=== PATIENT | male | born 1955 | race Caucasian/White ===

== ENCOUNTER 2019-12-06 08:22 | Outpatient (CLI) | payer BC, SELFPAY ==
--- NOTE | 2019-12-06 08:43 | ECG_ITS ---
Measurements Intervals [place] Rate: 55 P: 64 TX: 199 QRS: 49 QRSD: 89 T: 61 QT: 452 QTc: 434 Interpretive Statements SINUS BRADYCARDIA VOLTAGE CRITERIA FOR LVH BORDERLINE ECG Electronically Signed On 12-06-2019 12:41:24 EXTENSION SERVICE SPECIALIST IN CHARGE by Jose Daniel Gold D.O.
== END 2019-12-06 08:23 | disposition home or self-care (01) ==
LOC: ANHCARD 08:24
PROVIDERS: PCP Internal Medicine; Visit Provider Internal Medicine
DX: I10 Essential (primary) hypertension (principal); R94.31 Abnormal electrocardiogram [ECG] [EKG]
CPT/HCPCS: 93005

== ENCOUNTER 2019-12-27 07:34 | Outpatient (CLI) | payer BC, SELFPAY ==
--- NOTE | ~2019-12-27 | MR_ITS ---
EXAMINATION: MR cervical spine wo con DATE: 12/27/2019 08:40 INDICATION: Cervical radiculopathy. TECHNIQUE: Magnetic resonance imaging (MRI) of the cervical spine was performed without intravenous c ontrast. Sequences included sagittal T2-weighted FSE, sagittal STIR FSE, sagittal T1-weighted FSE, ax ial MERGE, and axial T2-weighted FSE. COMPARISON: None FINDINGS: There is hypolordosis of cervical spine. There is 2 mm retrolisthesis of C4 on C5. Vertebra l body heights are normal. There is mildly decreased disc height at C3-C4, severely decreased disc he ight at C4-C5, and mildly decreased disc height at C5-C6 and C6-C7. There are 3 lesions of increased T2-weighted signal intensity in the spinal cord: at C2-C3 on the left, at C3-C4 on the right, and C6 on the right. The following disc levels are specifically discussed: C2-C3: The disc does not extend beyond the endplate margin. There is no uncovertebral joint osteoarth ritis. There is mild right facet joint osteoarthritis. There is no neural foraminal stenosis. There i s no central canal stenosis. C3-C4: The disc is bulging. There is moderate bilateral uncovertebral joint osteoarthritis. There is severe bilateral facet joint osteoarthritis. There is moderate bilateral neural foraminal stenosis. T here is mild central canal stenosis. C4-C5: The disc is bulging. There is severe bilateral uncovertebral joint osteoarthritis. There is mo derate bilateral facet joint osteoarthritis. There is moderate bilateral neural foraminal stenosis. T here is mild central canal stenosis. C5-C6: The disc is bulging. There is severe right and moderate left uncovertebral joint osteoarthriti s. There is severe right and mild left facet joint osteoarthritis. There is severe right and mild lef t neural foraminal stenosis. There is mild central canal stenosis. C6-C7: The disc is bulging. There is severe bilateral uncovertebral joint osteoarthritis. There is mi ld bilateral facet joint osteoarthritis. There is moderate bilateral neural foraminal stenosis. There is mild central canal stenosis. C7-T1: There is a central extrusion. There is no uncovertebral joint osteoarthritis. There is severe right and mild left facet joint osteoarthritis. There is mild bilateral neural foraminal stenosis. Th ere is mild central canal stenosis. IMPRESSION: 1. 3 lesions in the spinal cord, most likely multiple sclerosis. 2. Severe cervical spondylosis. Reviewed, dictated and finalized at location A.
== END 2019-12-27 07:35 | disposition home or self-care (01) ==
PROVIDERS: PCP Internal Medicine; Visit Provider Psychiatry & Neurology Neurology
DX: M54.12 Radiculopathy, cervical region (principal); R20.0 Anesthesia of skin; R20.2 Paresthesia of skin; R29.898 Other symptoms and signs involving the musculoskeletal system; G95.9 Disease of spinal cord, unspecified; M47.812 Spondylosis without myelopathy or radiculopathy, cervical region
CPT/HCPCS: 72141

== ENCOUNTER 2020-03-07 07:52 | Outpatient (CLI) | payer BC, SELFPAY ==
--- NOTE | ~2020-03-07 | MR_ITS ---
EXAMINATION: MR brain/brain stem wo/w con EXAM DATE: 03/07/2020 09:32 INDICATION: Demyelinating disease. Bilateral hand foot leg pain and paresthesia, tingling. Low back p ain. TECHNIQUE: Magnetic resonance imaging (MRI) of the brain/brain stem obtained without contrast. Sagit broderick T1, axial diffusion, gradient echo (T2*), T1, T2, FLAIR sequences obtained. Demyelinating protoco l was utilized including sagittal FLAIR images. Patient was then injected with 15 cc intravenous M ultihance contrast. Axial and coronal postcontrast T1 weighted sequences obtained. There is no prior study for comparison. FINDINGS: There are mild scattered periventricular and subcortical T2/FLAIR hyperintensities, a non-s pecific finding with differential diagnosis including premature chronic small vessel ischemic disease (especially if the patient has cardiovascular risk factors), migraine headaches, demyelinating disea se such as multiple sclerosis or acute disseminated encephalomyelitis (ADEM), vasculopathy, lyme's di sease or reactive astrocytosis (gliosis) secondary to nonspecific etiology. No lesions within posteri or fossa or corpus callosum. There are no areas of restricted diffusion to suggest acute infarction. There is no acute hemorrhage seen on the T2*, a hemosiderin sensitive sequence. No intraparenchymal brain mass. The ventricles a re normal in size. There are no extra-axial collections. Flow voids are seen in the cerebral arteri es on the T2-weighted sequences consistent with their expected patency. The orbits are unremarkable. Soft tissue is unremarkable. There are no areas of abnormal enhancement on the post contrast imag es. IMPRESSION: Mild nonspecific scattered periventricular and subcortical hyperintensities. Reviewed, dictated and finalized at location A. IMPRESSION: Mild nonspecific scattered periventricular and subcortical hyperint ensities.
--- NOTE | ~2020-03-07 | MR_ITS ---
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 Bilateral hand foot leg pain and paresthesia. TECHNIQUE: Multi-sequential, multiplanar MR images of the thoracic spine were obtained without contra st. Sagittal T1, T2, T2 fat saturation, axial T2 weighted images reviewed. Axial T1 weighted sequenc e. Patient was then injected with 15 mL Multihance intravenous contrast and reimaged. Postcontrast axial and sagittal T1-weighted fat saturation sequences were obtained. Correlation is made to MR ce rvical spine 12/27/2019. FINDINGS: The spinal cord signal intensity and intrinsic morphology is normal. There is mild mid and lower thoracic disc disease. The central canal and neural foramen are widely patent. There is mild di ffuse thoracic facet arthropathy. Paraspinal soft tissue is unremarkable. There are scattered focal s ignal abnormalities consistent with hemangiomata, otherwise without focal suspicious marrow signal ab normalities. There are no areas of abnormal enhancement on the post contrast images. IMPRESSION: Mild thoracic spondylosis. Normal cord signal. Reviewed, dictated and finalized at location A.
[2020-03-07 08:32] LABS: Estimated Glomerular Filt Rate > 60
== END 2020-03-07 07:53 | disposition home or self-care (01) ==
PROVIDERS: PCP Internal Medicine; Visit Provider Psychiatry & Neurology Neurology
DX: G37.9 Demyelinating disease of central nervous system, unspecified (principal); M47.814 Spondylosis without myelopathy or radiculopathy, thoracic region
CPT/HCPCS: 36415; 70553; 72157; A9577

== ENCOUNTER 2020-04-10 08:10 | Outpatient (CLI) | payer BC, SELFPAY ==
--- NOTE | ~2020-04-10 | MR_ITS ---
EXAMINATION: MR lumbar spine wo con DATE: 04/10/2020 09:04 INDICATION: Low back pain. TECHNIQUE: Magnetic resonance imaging (MRI) of the lumbar spine was performed without intravenous con trast. Sequences included sagittal T2-weighted FSE, sagittal T2-weighted FS FSE, sagittal T1-weighted FSE, and axial T2-weighted FSE. COMPARISON: Lumbar spine MRI 09/15/2018 FINDINGS: Bone alignment is normal. There is mild chronic anterior wedging of T12 and L1 vertebral nina dies. There are Schmorl's nodes from T11-T12 through L1-L2. There is a hemangioma in T12 vertebral nina dy. The following disc levels are specifically discussed: L1-L2: The disc does not extend beyond the endplate margin. There is no facet joint osteoarthritis. T here is no neural foraminal stenosis. There is no central canal stenosis. L2-L3: The disc does not extend beyond the endplate margin. There is no facet joint osteoarthritis. T here is no neural foraminal stenosis. There is no central canal stenosis. L3-L4: The disc does not extend beyond the endplate margin. There is mild bilateral facet joint osteo arthritis. There is no neural foraminal stenosis. There is no central canal stenosis. L4-L5: The disc is bulging and has an annular fissure. There is moderate and mild left facet joint os teoarthritis. There is mild bilateral neural foraminal stenosis. There is mild central canal stenosis . L5-S1: The disc is bulging and has an annular fissure. There is severe bilateral facet joint osteoart hritis. There is mild bilateral neural foraminal stenosis. There is mild central canal stenosis. IMPRESSION: 1. Mild lumbar spondylosis, stable from 09/15/2018. Reviewed, dictated and finalized at location A.
== END 2020-04-10 08:11 | disposition home or self-care (01) ==
PROVIDERS: PCP Internal Medicine
DX: M47.896 Other spondylosis, lumbar region (principal)
CPT/HCPCS: 72148

== ENCOUNTER 2020-04-22 15:03 | Outpatient (CLI) | payer BC, SELFPAY ==
--- NOTE | ~2020-04-22 | CT_ITS ---
EXAMINATION: CT lung screening DATE: 04/22/2020 15:40 INDICATION: Personal history of tobacco dependence, tobacco use, current smoker with 30 pack year his tory TECHNIQUE: Computed tomography (CT) of the chest was performed without intravenous contrast. The dose -length product (DLP) was 100.77 mGy-cm. 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 COMPARISON: 04/17/2019, 10/05/2017 FINDINGS: Upper lobe nodules measuring up to 4 mm are stable compared to prior examinations. No new p ulmonary nodules are identified. There is mild emphysema. There is no pleural effusion or pneumothora x. The heart size is normal. There are no pathologically enlarged thoracic lymph nodes. Calcified cor onary artery atherosclerosis is noted. There is mild thoracic spondylosis. IMPRESSION: 1. Lung-RADS category 2: Benign appearance or behavior. Continue annual screening with noncontrast lo w-dose chest CT in 12 months. Reviewed, dictated and finalized at location A. IMPRESSION: 1. Lung-RADS category 2: Benign appearance or behavior. Continue annual screeni ng with noncontrast low-dose chest CT in 12 months.
== END 2020-04-22 15:04 | disposition home or self-care (01) ==
PROVIDERS: PCP Internal Medicine; Visit Provider Nurse Practitioner Family
DX: Z12.2 Encounter for screening for malignant neoplasm of respiratory organs (principal); Z87.891 Personal history of nicotine dependence
CPT/HCPCS: G0297

== ENCOUNTER 2020-05-13 08:28 | Outpatient (CLI) | payer BC, SELFPAY ==
[2020-05-13 08:55] LABS: Basophils Percent Auto 0.4 % (0.2-1.2); Eosinophils Absolute Auto 0.1 K/mm3 (0-0.3); Eosinophils Percent Auto 0.8 % (0-4.4); Hematocrit 45.7 % (42.0-52.0); Immature Granulocyte Absolute 0.03 K/mm3 (0.00-0.031); Immature Granulocyte Percent A 0.4 % (0-0.5); Lymphocytes Absolute Auto 1.67 K/mm3 (0.9-3.2); Lymphocytes Percent Auto 23.4 % (18.3-44.2); Mean Corpuscular HGB Conc 32.8 g/dl (32-36); Mean Corpuscular Hemoglobin 26.6 pg (26-34); Mean Corpuscular Volume 81.2 fl (80-100); Mean Platelet Volume 8.7 fl (7.4-10.4); Monocytes Absolute Auto 0.6 K/mm3 (0.1-0.6); Neutrophils Absolute Auto 4.8 K/mm3 (1.3-6.7); Platelet Count Result 238 k/mm3 (150-375); Red Blood Count 5.63 M/mm3 (4.6-6.20); Red Cell Distribution Width 14.7 % (11.5-14.5); White Blood Count 7.1 K/mm3 (4.5-10.0)
[2020-05-13 09:08] LABS: Alanine Aminotransferase 20 U/L (4-50); Albumin Level 4.2 g/dL (3.5-5.1); Alkaline Phosphatase 161 U/L (38-126); Anion Gap 7 mmol/L (8-16); Aspartate Amino Transferase 20 U/L (17-59); Bilirubin,Total 0.5 mg/dL (0.2-1.3); Blood Urea Nitrogen 11 mg/dL (9-20); Calcium 8.8 mg/dL (8.4-10.2); Carbon Dioxide 26 mmol/L (22-30); Chloride 102 mmol/L (98-107); Estimated Glomerular Filt Rate > 60; Glucose 109 mg/dL (75-110); Potassium 3.7 mmol/L (3.4-5.0); Sodium 135 mmol/L (137-145)
== END 2020-05-13 08:29 | disposition home or self-care (01) ==
PROVIDERS: PCP Internal Medicine; Visit Provider Internal Medicine
DX: E78.5 Hyperlipidemia, unspecified (principal); I10 Essential (primary) hypertension
CPT/HCPCS: 36415; 80053; 85025

== ENCOUNTER 2020-08-13 09:10 | Outpatient (CLI) | payer BC, SELFPAY ==
[2020-08-13 09:45] LABS: Basophils Percent Auto 0.6 % (0.2-1.2); Eosinophils Absolute Auto 0.1 K/mm3 (0-0.3); Eosinophils Percent Auto 1.2 % (0-4.4); Hematocrit 43.4 % (42.0-52.0); Hemoglobin 14.3 g/dL (14.0-18.0); Immature Granulocyte Absolute 0.01 K/mm3 (0.00-0.031); Immature Granulocyte Percent A 0.2 % (0-0.5); Lymphocytes Percent Auto 38.8 % (18.3-44.2); Mean Corpuscular HGB Conc 32.9 g/dl (32-36); Mean Corpuscular Hemoglobin 26.5 pg (26-34); Mean Corpuscular Volume 80.5 fl (80-100); Mean Platelet Volume 9.1 fl (7.4-10.4); Monocytes Absolute Auto 0.6 K/mm3 (0.1-0.6); Monocytes Percent Auto 11.4 % (2.6-8.5); Neutrophils Absolute Auto 2.3 K/mm3 (1.3-6.7); Neutrophils Percent Auto 47.8 % (45.5-73.1); Platelet Count Result 237 k/mm3 (150-375); Red Blood Count 5.39 M/mm3 (4.6-6.20); Red Cell Distribution Width 14.6 % (11.5-14.5); White Blood Count 4.9 K/mm3 (4.5-10.0)
[2020-08-13 09:57] LABS: Alanine Aminotransferase 27 U/L (4-50); Albumin Level 4.1 g/dL (3.5-5.1); Alkaline Phosphatase 120 U/L (38-126); Anion Gap 5 mmol/L (8-16); Aspartate Amino Transferase 26 U/L (17-59); Bilirubin,Total 0.6 mg/dL (0.2-1.3); Blood Urea Nitrogen 15 mg/dL (9-20); Calcium 8.9 mg/dL (8.4-10.2); Carbon Dioxide 30 mmol/L (22-30); Chloride 105 mmol/L (98-107); Cholesterol 143 mg/dL (0-200); Estimated Glomerular Filt Rate > 60; Glucose 106 mg/dL (75-110); HDL Direct 41 mg/dL; Potassium 4.3 mmol/L (3.4-5.0); Sodium 140 mmol/L (137-145); Triglycerides 57 mg/dL (<150)
[2020-08-13 10:09] LABS: LDL Cholesterol Direct 84 mg/dL
[2020-08-13 10:29] LABS: Thyroid Stimulating Hormone 0.701 uIU/mL (0.465-4.680)
[2020-08-13 10:44] LABS: Vitamin D 25 Hydroxy 36.2 ng/mL
== END 2020-08-13 09:11 | disposition home or self-care (01) ==
PROVIDERS: PCP Internal Medicine; Visit Provider Internal Medicine
DX: E78.5 Hyperlipidemia, unspecified (principal); G35 Multiple sclerosis; I10 Essential (primary) hypertension; E55.9 Vitamin D deficiency, unspecified; Z12.5 Encounter for screening for malignant neoplasm of prostate
CPT/HCPCS: 36415; 80053; 80061; 82306; 84153; 84443; 85025; G0103

== ENCOUNTER 2020-08-23 09:49 | Outpatient (CLI) | payer BC, SELFPAY ==
--- NOTE | ~2020-08-23 | US_ITS ---
EXAMINATION: US abdomen complete EXAM DATE: 08/23/2020 10:49 INDICATION: R10.9 - Unspecified abdominal pain unspecified abdominal pain. Patient points to right mi d lower quadrant abdominal pain. TECHNIQUE: Multiple grayscale and Doppler images of the complete abdomen were obtained (by a technolo gist who performed the scan) and subsequently reviewed. Comparison is made to prior examination from 04/16/2018. FINDINGS: The abdominal aorta is normal in caliber. Visualized portion IVC is patent. The pancreatic head a nd body are normal in appearance. The pancreatic tail is not visualized. The liver has normal echogenicity and contour. There are no focal liver lesions identified. There is no evidence of intrahepatic biliary duct dilation. Portal venous flow was seen in the hepatopedal , normal direction and has normal Doppler waveform. Common bile duct measures 5 mm, which is normal. The gallbladder wall is normal in thickness, with ex pected amount of distention. No sonographic evidence of pericholecystic fluid. There is no cholelit hiases. Technologist performing exam reports patient did not demonstrate sonographic Mattson's sign. Please note that this sign is less reliable in patients who have received pain medication. Right kidney: There is normal contour and echogenicity. It measures 11.2 x 4.4 x 6.2 centimeters. There are no focal renal lesions identified. There is no hydronephrosis. Left kidney: There is normal contour and echogenicity. It measures 12.5 x 6.6 x 6.6 centimeters. T here are no focal renal lesions identified. There is no hydronephrosis. The spleen measures 9.6 centimeters and is morphologically normal. IMPRESSION: 1. Unremarkable complete abdominal ultrasound exam. Reviewed, dictated and finalized at location B. IDE OPERATOR
== END 2020-08-23 09:50 | disposition home or self-care (01) ==
PROVIDERS: PCP Internal Medicine; Visit Provider Internal Medicine
DX: R10.9 Unspecified abdominal pain (principal)
CPT/HCPCS: 76700

== ENCOUNTER 2020-09-14 02:20 | Outpatient (CLI) | payer BC, SELFPAY ==
[2020-09-14 22:42] LABS: SARS-CoV-2 RNA PCR Negative
== END 2020-09-14 02:21 | disposition home or self-care (01) ==
LOC: ANHCOVIDDT 02:20
PROVIDERS: PCP Internal Medicine; Visit Provider Internal Medicine Gastroenterology
DX: Z01.818 Encounter for other preprocedural examination (principal); Z20.828 Contact with and (suspected) exposure to other viral communicable diseases
CPT/HCPCS: 87635; C9803; U0003

== ENCOUNTER 2020-09-17 00:22 | Day surgery (SDC) | payer BC, SELFPAY ==
[2020-09-10 12:09] VITALS: BMI 24.0
[2020-09-17 09:27] VITALS: BP 138/74; PULSE 52; RESP 16; TEMP 36.7; O2SAT 100; BMI 23.7
[2020-09-17] MEDS: LACTATED RINGERS 1,000 ML 150 ML IV CONT (09:50)
--- NOTE | 2020-09-17 10:01 | WPDANESEPPF ---
Anes - Initial Pre Proc Eval Procedure: Operation Date: 09/17/20 10:30 Proposed Procedures p Esophagogastroduodenoscopy - Crow Tee MD Date/Time: 09/17/20 10:01 Surgeon: Crow Tee MD Pre Op Diagnosis: GERD Patient Data Age: 65 Gender: M Height: 5 ft 11 in Weight: 77.2 kg Last Vital Signs Temp 36.7 C 09/17/20 09:27 Pulse 52 L 09/17/20 09:27 Resp 16 09/17/20 09:27 BP 138/74 09/17/20 09:27 Pulse Ox 100 09/17/20 09:27 Allergies Allergy/AdvReac Type Severity Reaction Status Date / Time gabapentin Allergy Mild unknown Verified 09/17/20 09:27 Home Medications Medication Instructions Recorded Confirmed Type umeclidinium 62.5 mcg-vilanterol 1 inhalation INHALATION DAILY #60 11/13/19 09/17/20 Rx 25 mcg/actuation powdr for each inhalation lisinopril 40 mg tablet 40 mg PO DAILY #90 tablet 05/13/20 09/17/20 Rx rosuvastatin 10 mg tablet 10 mg PO DAILY #90 tablet 05/13/20 09/17/20 Rx teriflunomide 7 mg tablet 7 mg PO DAILY 05/13/20 09/17/20 History amlodipine 10 mg tablet 10 mg PO DAILY #90 tablet 08/13/20 09/17/20 Rx carbamazepine 200 mg tablet 200 mg PO DAILY tablet 08/13/20 09/17/20 History hydrocodone 5 mg-acetaminophen 325 1 tablet PO Q8H PRN 08/13/20 09/17/20 History mg tablet Patient hx anesthesia problems: none Family hx anesthesia problems: none PMFSH Past Medical History Medical History Back pain Hyperlipidemia Skin cancer Surgical History Surgical History History of carpal tunnel release Family History Family History Sibling Diabetes mellitus Hypertension Family history of throat cancer Mother Diabetes mellitus Cerebrovascular accident Family history of congestive heart failure Father Family history of alcoholism Cerebrovascular accident Other Family history of heart disease in male family member before age 55 Family history of hypercholesterolemia Family history of malignant neoplasm Social History Social History Smoking packs per day: 0.75 Smoking cigarettes per day: 15.0 Years smoked: 40 Smoking pack-years: 30.00 Smoking status: Former smoker Tobacco type: cigarettes Smoking end date: 06/01/20 Alcohol intake: never Substance use: never Substance use type: does not use Living arrangements: alone Spiritual care concerns: No Anes - Eval Final PreProcedure Day of Procedure 09/17/20 10:01 Patient weight: normal Heart: regular rate and rhythm Lungs: clear to auscultation Airway: Mallampati scale class II Neurological: alert and oriented Last oral intake: >/= 8 hours ASA classification: III Emergent: no Anesthetic plan: proceed Anesthesia type and monitoring: general GIVS and standard monitoring Informed Consent: The patient's anesthetic plan and its attendant risks and benefits were discussed with the patient/family/POA. Questions were solicited and answers provided to the satisfaction of the patient/family/POA.
--- NOTE | 2020-09-17 10:03 | WPDGICN ---
Assessment and Plan Assessment and plan (1) Abdominal pain: Code(s): R10.9 - Unspecified abdominal pain Status: Acute Assessment and Plan: Patient has several month history of epigastric and right upper quadrant pain. This poorly described. Not related to diet or intake. He states his were sitting upright suggesting it may be musculoskeletal. Recent gallbladder ultrasound was unremarkable. Labs are unremarkable. Plan is for EGD to assess more thoroughly. Further recommendations will be given after endoscopy. (2) Multiple sclerosis: Code(s): G35 - Multiple sclerosis Status: Acute (3) Diarrhea: Code(s): R19.7 - Diarrhea, unspecified Status: Acute Assessment and Plan: Patient has diarrhea he attributes this to starting gabapentin. And this is likely etiology for his diarrhea. If diarrhea persists would suggest stool cultures. Elective screening colonoscopy may also be considered given his age. GI Consult Note Consult date/time: 09/17/20 10:03 HPI: Gregor Yuan is a 65 year old male seen in evaluation at the request of Dr Patrick. Patient complains of several month history of right upper quadrant abdominal pain. He has difficulty describing the pain. He states his not burning or cramping period is not aggravated by bowel movements diet or activity. He states it may be somewhat worse on sitting upright. Patient presents today for EGD to evaluate this discomfort. Past medical history is significant for multiple sclerosis. He reports he was started on gabapentin several months ago and has had diarrhea since that time. He denies any bleeding or weight loss. Family history is noncontributory. Review of Systems Review of Systems: All systems reviewed & are unremarkable except as noted in HPI and below PMFSH Past Medical History Medical History Back pain Hyperlipidemia Skin cancer Surgical History Surgical History History of carpal tunnel release Family History Family History Sibling Diabetes mellitus Hypertension Family history of throat cancer Mother Diabetes mellitus Cerebrovascular accident Family history of congestive heart failure Father Family history of alcoholism Cerebrovascular accident Other Family history of heart disease in male family member before age 55 Family history of hypercholesterolemia Family history of malignant neoplasm Social History Social History (Updated 08/13/20 @ 08:03 by Florentin Mcknight [facility]) Smoking packs per day: 0.75 Smoking cigarettes per day: 15.0 Years smoked: 40 Smoking pack-years: 30.00 Smoking status: Former smoker Tobacco type: cigarettes Smoking end date: 06/01/20 Alcohol intake: never Substance use: never Substance use type: does not use Living arrangements: alone Spiritual care concerns: No Meds Home Medications and Allergies Home Medications Medication Instructions Recorded Confirmed Type umeclidinium 62.5 mcg-vilanterol 1 inhalation INHALATION DAILY #60 11/13/19 09/17/20 Rx 25 mcg/actuation powdr for each inhalation lisinopril 40 mg tablet 40 mg PO DAILY #90 tablet 05/13/20 09/17/20 Rx rosuvastatin 10 mg tablet 10 mg PO DAILY #90 tablet 05/13/20 09/17/20 Rx teriflunomide 7 mg tablet 7 mg PO DAILY 05/13/20 09/17/20 History amlodipine 10 mg tablet 10 mg PO DAILY #90 tablet 08/13/20 09/17/20 Rx carbamazepine 200 mg tablet 200 mg PO DAILY tablet 08/13/20 09/17/20 History hydrocodone 5 mg-acetaminophen 325 1 tablet PO Q8H PRN 08/13/20 09/17/20 History mg tablet Allergies Allergy/AdvReac Type Severity Reaction Status Date / Time gabapentin Allergy Mild unknown Verified 09/17/20 09:27 Vital Signs Vital Signs - 24 hr 09/17/20 09:27 Temperature 98.0 F Pulse Rate 52 L R
[2020-09-17 10:45] VITALS: BP 94/58; PULSE 71; RESP 24; O2SAT 96
[2020-09-17 10:55] VITALS: BP 100/50; PULSE 65; RESP 17; O2SAT 99
[2020-09-17 11:05] VITALS: BP 100/55; PULSE 55; RESP 17; O2SAT 100
[2020-09-17 11:15] VITALS: BP 125/64; PULSE 57; RESP 19; O2SAT 100
== END 2020-09-17 11:33 | disposition home or self-care (01) ==
PROVIDERS: PCP Internal Medicine; Visit Provider Internal Medicine Gastroenterology
PROC: 0DJ08ZZ Inspection of Upper Intestinal Tract, Via Natural or Artificial Opening Endoscopic (ICD-10-PCS; CPT 43235; principal; 2020-09-17 10:30)
DX: K21.9 Gastro-esophageal reflux disease without esophagitis (principal); K20.90 Esophagitis, unspecified without bleeding; E78.5 Hyperlipidemia, unspecified; Z85.828 Personal history of other malignant neoplasm of skin; R19.7 Diarrhea, unspecified; R10.9 Unspecified abdominal pain; G35 Multiple sclerosis; Z87.891 Personal history of nicotine dependence
CPT/HCPCS: 43235; J2001; J2704; J7120

== ENCOUNTER 2020-11-23 07:31 | Outpatient (CLI) | payer OTHER, SELFPAY ==
[2020-11-23 08:00] LABS: Alanine Aminotransferase 30 U/L (4-50); Alkaline Phosphatase 113 U/L (38-126); Anion Gap 3 mmol/L (8-16); Aspartate Amino Transferase 20 U/L (17-59); Bilirubin,Total 0.5 mg/dL (0.2-1.3); Blood Urea Nitrogen 12 mg/dL (9-20); Calcium 8.7 mg/dL (8.4-10.2); Carbon Dioxide 29 mmol/L (22-30); Chloride 104 mmol/L (98-107); Estimated Glomerular Filt Rate > 60; Glucose 105 mg/dL (75-110); Potassium 3.8 mmol/L (3.4-5.0); Sodium 136 mmol/L (137-145)
[2020-11-26 00:37] LABS: NIL 0.03 IU/mL; Quantiferon TB Plus, 1T NEGATIVE (NEGATIVE); TB1-NIL 0.01 IU/mL; TB2-NIL 0.01 IU/mL
== END 2020-11-23 07:32 | disposition home or self-care (01) ==
PROVIDERS: PCP Internal Medicine; Visit Provider Internal Medicine
DX: G35 Multiple sclerosis (principal)
CPT/HCPCS: 36415; 80053; 86480

== ENCOUNTER 2021-03-19 07:40 | Outpatient (CLI) | payer OTHER, SELFPAY ==
--- NOTE | 2021-03-19 | ECG_ITS ---
Measurements Intervals [place] Rate: 57 P: 35 DE: 158 QRS: -6 QRSD: 96 T: 20 QT: 462 QTc: 452 Interpretive Statements SINUS BRADYCARDIA RSR' IN V1 OR V2, CONSIDER RIGHT VENTRICULAR HYPERTROPHY OR RIGHT VCD BASELINE ARTIFACT- I, V2 BORDERLINE ECG Electronically Signed On 03-19-2021 14:18:11 CDT by Jose Daniel Gold D.O.
--- NOTE | ~2021-03-19 | MR_ITS ---
EXAMINATION: MR brain/brain stem wo/w con DATE: 03/19/2021 09:11 INDICATION: Demyelinating disease of the central nervous system. TECHNIQUE: Magnetic resonance imaging (MRI) of the brain and brainstem was performed without and with 15 cc MultiHance intravenous contrast. Sequences included sagittal and axial T1-weighted SE, axial d iffusion-weighted FS SE, axial T2*-weighted GRE, axial T2-weighted FLAIR Propeller, and axial T2-weig hted Propeller. Apparent diffusion coefficient (ADC) maps were created. COMPARISON: MRI dated 03/07/2020. FINDINGS: Brain parenchymal volume is normal for age. There are scattered mild periventricular and grimes bcortical white matter changes, most likely related to small vessel ischemic disease (microangiopathy ). No ventriculomegaly or midline shift. Structures of the posterior fossa including 7/8th cranial ne rve complexes are normal. Orbits are symmetric without disconjugate gaze. Paranasal sinuses are unrem arkable. No abnormal contrast enhancement. No abnormal masses or mass effect. No acute intracranial i nfarction or hemorrhage. IMPRESSION: 1. No acute intracranial abnormality. 2: Chronic age-related findings. Reviewed, dictated and finalized at location B.
[2021-03-19 08:31] LABS: Estimated Glomerular Filt Rate > 60
[2021-03-19 10:43] LABS: Basophils Percent Auto 0.4 % (0.2-1.2); Eosinophils Absolute Auto 0.1 K/mm3 (0-0.3); Eosinophils Percent Auto 0.9 % (0-4.4); Hematocrit 46.7 % (42.0-52.0); Hemoglobin 15.1 g/dL (14.0-18.0); Immature Granulocyte Absolute 0.04 K/mm3 (0.00-0.031); Immature Granulocyte Percent A 0.6 % (0-0.5); Lymphocytes Absolute Auto 1.99 K/mm3 (0.9-3.2); Lymphocytes Percent Auto 29.8 % (18.3-44.2); Mean Corpuscular HGB Conc 32.3 g/dl (32-36); Mean Corpuscular Hemoglobin 25.7 pg (26-34); Mean Corpuscular Volume 79.4 fl (80-100); Mean Platelet Volume 8.7 fl (7.4-10.4); Monocytes Absolute Auto 0.8 K/mm3 (0.1-0.6); Monocytes Percent Auto 11.4 % (2.6-8.5); Neutrophils Absolute Auto 3.8 K/mm3 (1.3-6.7); Neutrophils Percent Auto 56.9 % (45.5-73.1); Platelet Count Result 208 k/mm3 (150-375); Red Blood Count 5.88 M/mm3 (4.6-6.20); Red Cell Distribution Width 14.8 % (11.5-14.5); White Blood Count 6.7 K/mm3 (4.5-10.0)
[2021-03-19 10:50] LABS: Alanine Aminotransferase 41 U/L (4-50); Albumin Level 4.4 g/dL (3.5-5.1); Alkaline Phosphatase 126 U/L (38-126); Anion Gap 8 mmol/L (8-16); Aspartate Amino Transferase 35 U/L (17-59); Bilirubin,Total 0.8 mg/dL (0.2-1.3); Blood Urea Nitrogen 13 mg/dL (9-20); Carbon Dioxide 26 mmol/L (22-30); Chloride 105 mmol/L (98-107); Estimated Glomerular Filt Rate > 60; Glucose 108 mg/dL (75-110); Potassium 4.5 mmol/L (3.4-5.0); Sodium 139 mmol/L (137-145)
[2021-03-23 15:56] LABS: JC Polyoma Virus DNA, QL Plasma; JC Polyoma Virus Source Not Detected (Not Detected)
== END 2021-03-19 07:41 | disposition home or self-care (01) ==
LOC: ANHIMG 07:54
PROVIDERS: PCP Internal Medicine
DX: G37.9 Demyelinating disease of central nervous system, unspecified (principal); M54.40 Lumbago with sciatica, unspecified side; M54.12 Radiculopathy, cervical region; R94.31 Abnormal electrocardiogram [ECG] [EKG]
CPT/HCPCS: 70553; 80053; 85025; 87798; 93005; A9577

== ENCOUNTER 2021-08-04 13:08 | Outpatient (CLI) | payer OTHER, SELFPAY ==
--- NOTE | ~2021-08-04 | CT_ITS ---
EXAMINATION: CT lung screening DATE: 08/04/2021 13:26 INDICATION: Personal history of nicotine dependence, prior smoker with 30 pack year history TECHNIQUE: Computed tomography (CT) of the chest was performed without intravenous contrast. The dose -length product (DLP) was 105.04 mGy-cm. 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 COMPARISON: 04/22/2020 FINDINGS: There is mild emphysema. Stable nodules of the upper lobes measure up to 4 mm. No new pulmo nary nodule is identified. The lungs are free of acute opacities. There is no pleural effusion or pne umothorax. No pathologically enlarged thoracic lymph nodes are identified. The heart size is normal. There is calcified coronary artery atherosclerosis. There is mild thoracic spondylosis. IMPRESSION: 1. Lung-RADS category 2: Benign appearance or behavior. Continue annual screening with noncontrast lo w-dose chest CT in 12 months. Reviewed, dictated and finalized at location B. IMPRESSION: 1. Lung-RADS category 2: Benign appearance or behavior. Continue annual screeni ng with noncontrast low-dose chest CT in 12 months.
== END 2021-08-04 13:09 | disposition home or self-care (01) ==
LOC: ANHIMG 13:12
PROVIDERS: PCP Internal Medicine; Visit Provider Nurse Practitioner Family
DX: Z87.891 Personal history of nicotine dependence (principal)
CPT/HCPCS: 71271

== ENCOUNTER 2021-08-12 08:22 | Outpatient (CLI) | payer OTHER, SELFPAY ==
[2021-08-12 08:51] LABS: Basophils Percent Auto 0.3 % (0.2-1.2); Eosinophils Absolute Auto 0.1 K/mm3 (0-0.3); Eosinophils Percent Auto 1.3 % (0-4.4); Hematocrit 46.6 % (42.0-52.0); Hemoglobin 15.4 g/dL (14.0-18.0); Immature Granulocyte Absolute 0.03 K/mm3 (0.00-0.031); Immature Granulocyte Percent A 0.8 % (0-0.5); Lymphocytes Absolute Auto 0.66 K/mm3 (0.9-3.2); Lymphocytes Percent Auto 16.5 % (18.3-44.2); Mean Corpuscular Hemoglobin 26.8 pg (26-34); Mean Platelet Volume 8.6 fl (7.4-10.4); Monocytes Absolute Auto 0.6 K/mm3 (0.1-0.6); Monocytes Percent Auto 14.3 % (2.6-8.5); Neutrophils Absolute Auto 2.7 K/mm3 (1.3-6.7); Neutrophils Percent Auto 66.8 % (45.5-73.1); Platelet Count Result 232 k/mm3 (150-375); Red Blood Count 5.75 M/mm3 (4.6-6.20); Red Cell Distribution Width 15.4 % (11.5-14.5)
[2021-08-12 09:03] LABS: Alanine Aminotransferase 47 U/L (4-50); Albumin Level 4.3 g/dL (3.5-5.1); Alkaline Phosphatase 110 U/L (38-126); Anion Gap 6 mmol/L (8-16); Aspartate Amino Transferase 31 U/L (17-59); Bilirubin,Total 0.6 mg/dL (0.2-1.3); Blood Urea Nitrogen 11 mg/dL (9-20); Calcium 9.1 mg/dL (8.4-10.2); Carbon Dioxide 30 mmol/L (22-30); Chloride 103 mmol/L (98-107); Cholesterol 196 mg/dL (0-200); Estimated Glomerular Filt Rate > 60; Glucose 111 mg/dL (65-110); HDL Direct 43 mg/dL; Potassium 4.3 mmol/L (3.4-5.0); Sodium 139 mmol/L (137-145); Triglycerides 115 mg/dL (<150)
[2021-08-12 09:14] LABS: LDL Cholesterol Direct 126 mg/dL
[2021-08-12 09:14] LABS: Add Urine Microscopic? NO; Appearance Urine Clear (Clear); Bilirubin Urine Negative (Negative); Blood Urine Negative (Negative); Color Urine Straw (Yellow); Glucose Urine UA Negative (Negative); Ketones Urine Negative (Negative); Leukocyte Esterase Ur Negative LEU/UL (NEGATIVE); Nitrate Urine Negative (Negative); Protein Urine Negative (Negative); Specific Grav Ur 1.008 (1.001-1.035); Urobilinogen Urine Negative mg/dL (<2.0)
[2021-08-12 09:25] LABS: Vitamin D 25 Hydroxy 36.8 ng/mL
[2021-08-12 09:34] LABS: Prostate Specific Antigen 4.2 ng/mL (< OR = 4.0)
== END 2021-08-12 08:23 | disposition home or self-care (01) ==
LOC: ANHLAB 08:24
PROVIDERS: PCP Internal Medicine; Visit Provider Internal Medicine
DX: E55.9 Vitamin D deficiency, unspecified (principal); G62.9 Polyneuropathy, unspecified; I10 Essential (primary) hypertension; J44.9 Chronic obstructive pulmonary disease, unspecified; R73.01 Impaired fasting glucose; Z12.5 Encounter for screening for malignant neoplasm of prostate; E78.2 Mixed hyperlipidemia
CPT/HCPCS: 36415; 80053; 80061; 81003; 82306; 84153; 84443; 85025; G0103

== ENCOUNTER 2021-08-19 07:02 | Outpatient (CLI) | payer OTHER, SELFPAY ==
[2021-08-19 07:36] LABS: Creatinine Urine 198.9 mg/dL
[2021-08-19 07:41] LABS: MALB Creatinine Ratio 9.6 mg/g (0-30); Microalbumin Urine Random 19.1 mg/L (0-16.7)
[2021-08-19 07:55] LABS: Hemoglobin A1C 5.8 % (<5.7)
== END 2021-08-19 07:03 | disposition home or self-care (01) ==
PROVIDERS: PCP Internal Medicine; Visit Provider Internal Medicine
DX: R73.01 Impaired fasting glucose (principal)
CPT/HCPCS: 36415; 82043; 83036

== ENCOUNTER 2022-03-10 08:58 | Outpatient (CLI) | payer MEDICARE, OTHER, SELFPAY ==
--- NOTE | ~2022-03-10 | MR_ITS ---
EXAMINATION: MR brain/brain stem wo/w con DATE: 03/10/2022 09:55 INDICATION: Demyelinating disease of central nervous system. TECHNIQUE: Magnetic resonance imaging (MRI) of the brain and brainstem was performed without and with 15 mL MultiHance intravenous contrast. COMPARISON: Brain MRI 03/19/2021 FINDINGS: There are approximately 10-15 total lesions of increased T2-weighted signal intensity in th e brain. Of these lesions, multiple are periventricular, multiple are juxtacortical, and one is infra tentorial. None of the lesions enhance. There is no acute ischemic infarct or intracranial hemorrhage . The ventricles are normal in size. There is mucosal thickening in the paranasal sinuses. The mastoi d air cells are normal. The orbits are normal. IMPRESSION: 1. Stable mild nonspecific cerebral white matter disease and pontine disease, which likely represents chronic small vessel ischemic disease and/or multiple sclerosis. Reviewed, dictated and finalized at location A. IMPRESSION: 1. Stable mild nonspecific cerebral white matter disease and pontine disease, w hich likely represents chronic small vessel ischemic disease and/or multiple sc lerosis.
[2022-03-10 09:31] LABS: Estimated Glomerular Filt Rate > 60
== END 2022-03-10 08:59 | disposition home or self-care (01) ==
LOC: ANHIMG 09:02
PROVIDERS: PCP Internal Medicine
DX: G37.9 Demyelinating disease of central nervous system, unspecified (principal)
CPT/HCPCS: 70553; A9577

== ENCOUNTER 2022-08-29 08:41 | Outpatient (CLI) | payer MEDICARE, OTHER, SELFPAY ==
--- NOTE | ~2022-08-29 | CT_ITS ---
EXAMINATION: CT lung screening DATE: 08/29/2022 09:07 INDICATION: Personal history of nicotine dependence. Lung cancer screening. TECHNIQUE: Computed tomography (CT) of the chest was performed without intravenous contrast. The dose -length product was 123.93 mGy-cm. Automated exposure control and iterative reconstruction technique were employed. COMPARISON: CT dated 08/04/2021 FINDINGS: There is atherosclerosis of the aorta and coronary arteries. Heart size normal. No signific ant pleural or pericardial effusion. No endobronchial lesions. No thoracic lymphadenopathy. There is emphysema. There is apical pleural thickening/scarring. Stable bilateral pulmonary nodules measuring 4 mm or less. There are bilateral calcified granulomas of the lungs. No new or growing pulmonary nodu les. Moderate thoracic spondylosis. No focal lytic or blastic lesions. IMPRESSION: 1. Lung-RADS category 2: Benign appearance or behavior. Continue annual screening with noncontrast lo w-dose chest CT in 12 months. Reviewed, dictated and finalized at location A. BER HAND IMPRESSION: 1. Lung-RADS category 2: Benign appearance or behavior. Continue annual screeni ng with noncontrast low-dose chest CT in 12 months.
== END 2022-08-29 08:42 | disposition home or self-care (01) ==
PROVIDERS: PCP Family Medicine; Visit Provider Internal Medicine Critical Care Medicine
DX: Z12.2 Encounter for screening for malignant neoplasm of respiratory organs (principal); Z87.891 Personal history of nicotine dependence
CPT/HCPCS: 71271; J2704

== ENCOUNTER 2022-10-16 07:31 | Outpatient (CLI) | payer MEDICARE, OTHER, SELFPAY ==
[2022-10-16 07:53] LABS: Basophils Percent Auto 0.5 % (0.2-1.2); Eosinophils Absolute Auto 0.1 K/mm3 (0-0.3); Eosinophils Percent Auto 1.1 % (0-4.4); Hematocrit 46.7 % (42.0-52.0); Immature Granulocyte Absolute 0.03 K/mm3 (0.00-0.031); Immature Granulocyte Percent A 0.5 % (0-0.5); Lymphocytes Absolute Auto 0.89 K/mm3 (0.9-3.2); Lymphocytes Percent Auto 13.8 % (18.3-44.2); Mean Corpuscular HGB Conc 32.1 g/dl (32-36); Mean Corpuscular Hemoglobin 27.3 pg (26-34); Mean Corpuscular Volume 84.9 fl (80-100); Mean Platelet Volume 8.8 fl (7.4-10.4); Monocytes Absolute Auto 0.9 K/mm3 (0.1-0.6); Monocytes Percent Auto 14.6 % (2.6-8.5); Neutrophils Absolute Auto 4.5 K/mm3 (1.3-6.7); Neutrophils Percent Auto 69.5 % (45.5-73.1); Platelet Count Result 220 k/mm3 (150-375); Red Cell Distribution Width 14.6 % (11.5-14.5); White Blood Count 6.4 K/mm3 (4.5-10.0)
[2022-10-16 07:55] LABS: Appearance Urine Clear (Clear); Bilirubin Urine Negative (Negative); Blood Urine Negative (Negative); Color Urine Yellow (Yellow); Glucose Urine UA Negative (Negative); Ketones Urine Negative (Negative); Leukocyte Esterase Ur Negative LEU/UL (Negative); Nitrate Urine Negative (Negative); Protein Urine Negative (Negative); Specific Grav Ur >= 1.030 (1.001-1.035); Urobilinogen Urine 0.2 mg/dL (<2.0); pH Urine 5.5 (5.0-9.0)
[2022-10-16 07:59] LABS: Add Urine Microscopic? NO
[2022-10-16 08:07] LABS: Alanine Aminotransferase 65 U/L (6-50); Albumin Level 4.2 g/dL (3.5-5.1); Alkaline Phosphatase 110 U/L (38-126); Anion Gap 5 mmol/L (8-16); Aspartate Amino Transferase 33 U/L (17-59); Bilirubin,Total 0.6 mg/dL (0.2-1.3); Blood Urea Nitrogen 15 mg/dL (9-20); Calcium 8.7 mg/dL (8.4-10.2); Carbon Dioxide 29 mmol/L (22-30); Chloride 105 mmol/L (98-107); Cholesterol 164 mg/dL (0-200); Estimated Glomerular Filt Rate > 60; Glucose 107 mg/dL (65-110); HDL Direct 42 mg/dL; Potassium 3.9 mmol/L (3.4-5.0); Sodium 139 mmol/L (137-145); Triglycerides 110 mg/dL (<150)
[2022-10-16 08:18] LABS: LDL Cholesterol Direct 90 mg/dL
[2022-10-16 08:35] LABS: Prostate Specific Antigen 6.6 ng/mL (< OR = 4.0)
[2022-10-16 09:59] LABS: Vitamin D 25 Hydroxy 39.1 ng/mL
== END 2022-10-16 07:32 | disposition home or self-care (01) ==
LOC: ANHLAB 07:33
PROVIDERS: PCP Family Medicine; Visit Provider Family Medicine
DX: E55.9 Vitamin D deficiency, unspecified (principal); J43.9 Emphysema, unspecified; Z12.5 Encounter for screening for malignant neoplasm of prostate; R97.20 Elevated prostate specific antigen [PSA]; E78.5 Hyperlipidemia, unspecified; R31.29 Other microscopic hematuria; I10 Essential (primary) hypertension; E53.8 Deficiency of other specified B group vitamins; R73.03 Prediabetes
CPT/HCPCS: 36415; 80053; 80061; 81003; 82306; 82607; 83036; 84153; 84443; 85025; G0103

== ENCOUNTER 2022-11-20 01:04 | Day surgery (SDC) | payer MEDICARE, OTHER, SELFPAY ==
[2022-11-02 13:30] VITALS: BMI 25.2
--- NOTE | 2022-11-19 12:49 | PM.HPGS ---
History of Present Illness History of Present Illness Consent: Risks, benefits, and alternatives have been discussed and questions answered. Patient agrees to proceed with procedure. Chief complaint: hx colon polyps Narrative: Gregor Yuan is a 67 year old male Referred for colon cancer screening. He has a history of having had a tubular adenoma removed from his colon by me 5 years ago Review of Systems Review of Systems: All systems reviewed & are unremarkable except as noted in HPI and below PMFSH Past Medical History Medical History Back pain BPH (benign prostatic hyperplasia) Chronic obstructive pulmonary disease Dyslipidemia Essential hypertension History of colon polyps Hyperlipidemia Multiple sclerosis Prediabetes Pulmonary hypertension Skin cancer Surgical History Surgical History History of carpal tunnel release (~2001) left Family History Family History Sibling Diabetes mellitus Hypertension Family history of throat cancer Mother Diabetes mellitus Cerebrovascular accident Family history of congestive heart failure Father Family history of alcoholism Cerebrovascular accident Other Family history of heart disease in male family member before age 55 Family history of hypercholesterolemia Family history of malignant neoplasm Social History Social History Smoking packs per day: 0.75 Smoking cigarettes per day: 15.0 Years smoked: 40 Smoking pack-years: 30.00 Smoking status: Former smoker Tobacco type: cigarettes Smoking end date: 10/01/19 Alcohol intake: never Substance use: never Substance use type: does not use Lack of Transportation: No Lack of Food: Never True Current Housing: I Have Housing Concerned About Future Housing: No Difficulty Paying Gas/Electric Bills: No Difficulty Paying for Meds: No Currently Unemployed: No Education: High School Diploma/GED Difficulty w/ Childcare or Family Care: No Living arrangements: with family Additional living arrangements comments: Occupation/Education: retired Gender identity (if verbalized by the patient): Male Sexual Orientation (if Verbalized by the Patient): Straight or Heterosexual Spiritual care concerns: No Meds Home Medications and Allergies Home Medications Medication Instructions Recorded Confirmed Type ozanimod 0.92 mg capsule (Zeposia) 0.92 mg PO DAILY 06/17/21 11/02/22 History umeclidinium 62.5 mcg-vilanterol 1 inh inhalation DAILY #60 ea 09/08/21 11/02/22 Rx 25 mcg/actuation powdr for inhalation (Anoro Ellipta) lisinopril 40 mg tablet 40 mg PO DAILY #90 tabs 11/07/22 11/20/22 Rx rosuvastatin 20 mg tablet 20 mg PO DAILY #90 tabs 11/07/22 11/20/22 Rx Allergies Allergy/AdvReac Type Severity Reaction Status Date / Time gabapentin Allergy Intermediate Muscle Verified 11/20/22 09:20 Spasms Exam Const: General: alert Orientation/consciousness: patient oriented x3 Resp: Auscultation: clear to auscultation bilaterally Cardio: Rhythm: regular rhythm GI: Inspection: obesity and other ( rounded) GI Palp: Yes Soft to palpation, Yes Tenderness to palpation present (GI) ( Moderately tender up and down the right side of his abdomen) and Yes No hepatosplenomegaly present Auscultation: normal bowel sounds Neuro: General: patient oriented x3 Assessment and Plan Assessment and plan (1) Colon cancer screening: Code(s): Z12.11 - Encounter for screening for malignant neoplasm of colon Status: Acute Assessment and Plan: Colonoscopy with possible biopsy or polypectomy or cautery or injection of substances.
[2022-11-20 09:22] VITALS: BP 131/79; PULSE 85; RESP 18; TEMP 36.3; O2SAT 99
[2022-11-20] MEDS: LACTATED RINGERS 1,000 ML 150 ML IV CONT (09:32)
--- NOTE | 2022-11-20 09:43 | WPDANESEPPF ---
Anes - Initial Pre Proc Eval Procedure: Operation Date: 11/20/22 10:30 Proposed Procedures p Colonoscopy - Nadeem Beckwith MD Date/Time: 11/20/22 09:43 Surgeon: Nadeem Beckwith MD Pre Op Diagnosis: hx colon polyps Patient Data Age: 67 Gender: M Height: 1.8 m Weight: 81.1 kg Last Vital Signs Temp 36.3 C L 11/20/22 09:22 Pulse 85 11/20/22 09:22 Resp 18 11/20/22 09:22 BP 131/79 11/20/22 09:22 Pulse Ox 99 11/20/22 09:22 O2 Del Method Room Air 11/20/22 09:22 Allergies Allergy/AdvReac Type Severity Reaction Status Date / Time gabapentin Allergy Intermediate Muscle Verified 11/20/22 09:20 Spasms Home Medications Medication Instructions Recorded Confirmed Type ozanimod 0.92 mg capsule (Zeposia) 0.92 mg PO DAILY 06/17/21 11/02/22 History umeclidinium 62.5 mcg-vilanterol 1 inh inhalation DAILY #60 ea 09/08/21 11/02/22 Rx 25 mcg/actuation powdr for inhalation (Anoro Ellipta) lisinopril 40 mg tablet 40 mg PO DAILY #90 tabs 11/07/22 11/20/22 Rx rosuvastatin 20 mg tablet 20 mg PO DAILY #90 tabs 11/07/22 11/20/22 Rx Patient hx anesthesia problems: none Family hx anesthesia problems: none Results Review: All pre-operative results and documents have been reviewed as part of the pre-operative evaluation. [facility] Past Medical History Medical History (Updated 11/20/22 @ 09:44 by Juan Pablo Lopez MD) Back pain BPH (benign prostatic hyperplasia) Chronic obstructive pulmonary disease Dyslipidemia Essential hypertension History of colon polyps Hyperlipidemia Multiple sclerosis Prediabetes Pulmonary hypertension Skin cancer Surgical History Surgical History History of carpal tunnel release (~2001) left Family History Family History Sibling Diabetes mellitus Hypertension Family history of throat cancer Mother Diabetes mellitus Cerebrovascular accident Family history of congestive heart failure Father Family history of alcoholism Cerebrovascular accident Other Family history of heart disease in male family member before age 55 Family history of hypercholesterolemia Family history of malignant neoplasm Social History Social History Smoking packs per day: 0.75 Smoking cigarettes per day: 15.0 Years smoked: 40 Smoking pack-years: 30.00 Smoking status: Former smoker Tobacco type: cigarettes Smoking end date: 10/01/19 Alcohol intake: never Substance use: never Substance use type: does not use Lack of Transportation: No Lack of Food: Never True Current Housing: I Have Housing Concerned About Future Housing: No Difficulty Paying Gas/Electric Bills: No Difficulty Paying for Meds: No Currently Unemployed: No Education: High School Diploma/GED Difficulty w/ Childcare or Family Care: No Living arrangements: with family Additional living arrangements comments: Occupation/Education: retired Gender identity (if verbalized by the patient): Male Sexual Orientation (if Verbalized by the Patient): Straight or Heterosexual Spiritual care concerns: No Anes - Eval Final PreProcedure Day of Procedure 11/20/22 09:43 Patient weight: normal Heart: regular rate and rhythm Lungs: clear to auscultation Airway: Mallampati scale class II Neurological: alert and oriented Last oral intake: >/= 8 hours ASA classification: III Emergent: no Anesthetic plan: proceed Anesthesia type and monitoring: general GIVS and standard monitoring Results Review: All pre-operative results and documents have been reviewed as part of the pre-operative evaluation. Informed Consent: The patient's anesthetic plan and its attendant risks and benefits were discussed with the patient/family/POA. Questions were solicited and answers provided to the satisfaction of t
[2022-11-20] MEDS: SIMETHICONE ORAL SUSPENSION 20 MG/0.3 ML 30 ML BOTTLE 0.6 ML IRRIGATION (10:30)
[2022-11-20 10:48] VITALS: BP 117/47; PULSE 70; RESP 16; O2SAT 94
[2022-11-20 10:58] VITALS: BP 98/65; PULSE 68; RESP 18; O2SAT 100
[2022-11-20 11:08] VITALS: BP 103/67; PULSE 66; RESP 18; O2SAT 99
== END 2022-11-20 11:22 | disposition home or self-care (01) ==
PROVIDERS: PCP Family Medicine; Visit Provider Internal Medicine Gastroenterology
PROC: 0DJD8ZZ Inspection of Lower Intestinal Tract, Via Natural or Artificial Opening Endoscopic (ICD-10-PCS; CPT 45378; principal; 2022-11-20 10:30)
DX: Z12.11 Encounter for screening for malignant neoplasm of colon (principal); K57.30 Diverticulosis of large intestine without perforation or abscess without bleeding; D12.4 Benign neoplasm of descending colon; D12.8 Benign neoplasm of rectum; I10 Essential (primary) hypertension; G35 Multiple sclerosis; E78.5 Hyperlipidemia, unspecified; J44.9 Chronic obstructive pulmonary disease, unspecified; Z79.51 Long term (current) use of inhaled steroids; Z87.891 Personal history of nicotine dependence
CPT/HCPCS: 45385; 45380; 88305; J2704; J7120

== ENCOUNTER 2023-02-16 06:43 | Outpatient (CLI) | payer MEDICARE, OTHER, SELFPAY ==
--- NOTE | ~2023-02-16 | MR_ITS ---
EXAMINATION: MR brain/brain stem wo/w con DATE: 02/16/2023 08:11 INDICATION: Multiple sclerosis. TECHNIQUE: Magnetic resonance imaging (MRI) of the brain and brainstem was performed without and with 17 mL MultiHance intravenous contrast. COMPARISON: Brain MRI 03/10/2022 FINDINGS: There are approximately 10-15 total lesions of increased T2-weighted signal intensity in th e brain. Of these lesions, multiple are periventricular, multiple are juxtacortical, and one is infra tentorial. None of the lesions enhance. There is no intracranial hemorrhage or acute ischemic infarct . The ventricles are normal in size. There is mild mucosal thickening in the paranasal sinuses. The o rbits are normal. The mastoid air cells are normal. IMPRESSION: 1. Stable mild nonspecific cerebral white matter disease and pontine disease, which likely represents chronic small vessel ischemic disease and/or multiple sclerosis. Reviewed, dictated and finalized at location A. IMPRESSION: 1. Stable mild nonspecific cerebral white matter disease and pontine disease, w hich likely represents chronic small vessel ischemic disease and/or multiple sc lerosis.
--- NOTE | ~2023-02-16 | MR_ITS ---
EXAMINATION: MR cervical spine wo/w con DATE: 02/16/2023 08:11 INDICATION: Multiple sclerosis. TECHNIQUE: Magnetic resonance imaging (MRI) of the cervical spine was performed without and with 17 m L MultiHance intravenous contrast. COMPARISON: Cervical spine MRI 12/27/2019 FINDINGS: There is hyperlordosis of the cervical spine. There is 2 mm retrolisthesis of C4 on C5. Marylou tebral body heights are normal. There is mildly decreased disc height at C3-C4, severely decreased di sc height at C4-C5, and mildly decreased disc height at C5-C6 and C6-C7. Again seen are 3 lesions of increased T2-weighted signal intensity in the spinal cord: at C2-C3 on the left, at C3-C4 on the righ t, and at C6 on the right. There is no abnormal contrast enhancement. The following disc levels are s pecifically discussed: C2-C3: The disc does not extend beyond the endplate margin. There is no uncovertebral joint osteoarth ritis. There is moderate right facet joint osteoarthritis. There is no neural foraminal stenosis. The re is no central canal stenosis. C3-C4: There is a central protrusion. There is mild bilateral uncovertebral joint osteoarthritis. The re is severe bilateral facet joint osteoarthritis. There is moderate bilateral neural foraminal steno sis. There is no central canal stenosis. C4-C5: The disc is bulging. There is severe bilateral uncovertebral joint osteoarthritis. There is mi ld bilateral facet joint osteoarthritis. There is moderate bilateral neural foraminal stenosis. There is mild central canal stenosis. C5-C6: The disc is bulging. There is severe right and moderate left uncovertebral joint osteoarthriti s. There is severe right and moderate left facet joint osteoarthritis. There is moderate right and mi ld left neural foraminal stenosis. There is mild central canal stenosis. C6-C7: There is a central extrusion. There is severe bilateral uncovertebral joint osteoarthritis. Th ere is mild bilateral facet joint osteoarthritis. There is moderate bilateral neural foraminal stenos is. There is mild central canal stenosis. C7-T1: There is a central extrusion. There is no uncovertebral joint osteoarthritis. There is severe right and moderate left facet joint osteoarthritis. There is mild bilateral neural foraminal stenosis . There is mild central canal stenosis. IMPRESSION: 1. Stable spinal cord lesions, likely multiple sclerosis. 2. Stable severe cervical spondylosis. Reviewed, dictated and finalized at location A.
== END 2023-02-16 06:44 | disposition home or self-care (01) ==
PROVIDERS: PCP Family Medicine
DX: G35 Multiple sclerosis (principal); M47.892 Other spondylosis, cervical region; R93.0 Abnormal findings on diagnostic imaging of skull and head, not elsewhere classified
CPT/HCPCS: 70553; 72156; A9577

== ENCOUNTER 2023-04-11 09:34 | Outpatient (CLI) | payer MEDICARE, OTHER, SELFPAY ==
[2023-04-11 18:27] LABS: Alanine Aminotransferase 73 U/L (6-50); Albumin Level 3.9 g/dL (3.5-5.1); Alkaline Phosphatase 104 U/L (38-126); Anion Gap 0 mmol/L (8-16); Aspartate Amino Transferase 43 U/L (17-59); Bilirubin,Total 0.8 mg/dL (0.2-1.3); Blood Urea Nitrogen 15 mg/dL (9-20); Calcium 8.8 mg/dL (8.4-10.2); Carbon Dioxide 31 mmol/L (22-30); Chloride 103 mmol/L (98-107); Estimated Glomerular Filt Rate > 60; Glucose 103 mg/dL (65-110); Potassium 4.5 mmol/L (3.4-5.0); Sodium 134 mmol/L (137-145)
[2023-04-11 19:02] LABS: Hemoglobin A1C 6.1 % (<5.7)
== END 2023-04-11 09:35 | disposition home or self-care (01) ==
LOC: ANHGOSHLAB 09:36
PROVIDERS: PCP Family Medicine; Visit Provider Family Medicine
DX: R73.03 Prediabetes (principal); I10 Essential (primary) hypertension
CPT/HCPCS: 36415; 80053; 83036

== ENCOUNTER 2023-08-08 03:04 | Day surgery (SDC) | payer MEDICARE, OTHER, SELFPAY ==
--- NOTE | 2023-08-03 09:21 | PC.NURSE ---
Report to the Outpatient Waiting Room, entrance under the green pavilion located off [facility], at time 0600 on date ___08/08/23____. Planned Procedure Time: ___729 . Time changes happen often and if your time is changed the preop area will call you the afternoon before. - You and your visitor will be asked to self-screen and do not enter if you have any COVID symptoms. - A mask is optional within the hospital at this time. Patients may have clear liquids (water, carbonated beverages, clear teas, apple juice) until 3 hours prior to surgery with a maximum of 20 ounces. - No food from midnight until time of surgery - Infants may have breast milk until 4 hours before surgery, infant formula 6 hours prior to surgery. - Children will be allowed to drink immediately following surgery. If applicable, please bring a bottle or sippy cup to assist with drinking. Juice, water, soda, and popsicles are readily available. For infants on formula, please bring formula the day of surgery. Pacifiers are allowed. Take the following medications with a SIP of water the morning of surgery: ____DULOXETINE DO NOT STOP ANY OF YOUR OTHER PRESCRIPTION MEDICATIONS PRIOR TO SURGERY ?EXCEPT THE FOLLOWING Medications to discontinue per physician NONE Please no make-up, nail honduran, hairspray, perfume, deodorant, or body powder the day of surgery. No jewelry (including any body piercings) or valuables the day of surgery, leave them at home. Please take a shower or bath the night before, or the morning of, surgery with an antibacterial soap. Wear comfortable, loose fitting clothing. Children are encouraged to wear pajamas. - Jewelry must be removed prior to entering the operating room. Rings and piercings that are not removed may be cut off. - The hospital will not accept responsibility for valuables. - Please leave all valuables, including medications, at home the day of surgery. If you are going home after surgery, a licensed catering driver must drive you home. - NO public transportation without another adult if you receive anesthesia. - We recommend that an adult stay with you for 24 hours following discharge. - We also recommend that you do not drive, make important decision, drink alcoholic beverages, or take any drugs that were not prescribed by your health care provider for at least 24 hours after your discharge time. For Pediatric surgeries, we recommend two adults accompany the child home. Follow any additional instructions given to you from your surgeon. If you or anyone in your household have experienced Covid symptoms in the past week, please notify your surgeon or the nurse liaison at the phone number below for possible testing. Telephone instructions given to __PATIENT and asked if any additional questions and then verbalized understanding. Patient advised to call surgeon office or pre surgery nurse liaison [phone] if any additional questions.
[2023-08-03 09:29] VITALS: BMI 25.1
--- NOTE | 2023-08-08 06:48 | WPDANESEPPF ---
Anes - Initial Pre Proc Eval Procedure: Operation Date: 08/08/23 07:30 Proposed Procedures p Left Open Carpal Tunnel Release, Left Ulnar Neuroplasty at Elbow - Leo Tang MD Date/Time: 08/08/23 06:48 Surgeon: Leo Tang MD Pre Op Diagnosis: left carpal and cubital tunnel syndrome Patient Data Age: 68 Gender: M Height: 1.8 m Weight: 81.65 kg Allergies Allergy/AdvReac Type Severity Reaction Status Date / Time gabapentin Allergy Intermediate Muscle Verified 08/03/23 09:10 Spasms Home Medications Medication Instructions Recorded Confirmed Type ozanimod 0.92 mg capsule (Zeposia) 0.92 mg PO HS 06/17/21 08/03/23 History umeclidinium 62.5 mcg-vilanterol 1 inh inhalation DAILY #60 ea 09/08/21 08/03/23 Rx 25 mcg/actuation powdr for inhalation (Anoro Ellipta) duloxetine 30 mg capsule,delayed 30 mg PO BID 04/11/23 08/03/23 History release finasteride 5 mg tablet 5 mg PO HS 04/11/23 08/03/23 History lisinopril 40 mg tablet 40 mg PO DAILY #90 tabs 06/21/23 08/03/23 Rx rosuvastatin 20 mg tablet 20 mg PO DAILY 08/03/23 08/03/23 History Patient hx anesthesia problems: none Family hx anesthesia problems: none Results Review: All pre-operative results and documents have been reviewed as part of the pre-operative evaluation. [facility] Past Medical History Medical History Back pain Bilateral carpal tunnel syndrome BPH (benign prostatic hyperplasia) Chronic obstructive pulmonary disease Dyslipidemia Essential hypertension History of colon polyps Hyperlipidemia Multiple sclerosis Prediabetes Pulmonary hypertension Seasonal allergies Skin cancer Surgical History Surgical History History of carpal tunnel release (~2001) left S/P cubital tunnel release (~2001) Left Family History Family History Sibling Diabetes mellitus Hypertension Family history of throat cancer Mother Diabetes mellitus Cerebrovascular accident Family history of congestive heart failure Father Family history of alcoholism Cerebrovascular accident Other Family history of heart disease in male family member before age 55 Family history of hypercholesterolemia Family history of malignant neoplasm Social History Social History Smoking packs per day: 0.75 Smoking cigarettes per day: 15.0 Years smoked: 40 Smoking pack-years: 30.00 Smoking status: Former smoker Tobacco type: cigarettes Smoking end date: 10/01/19 Alcohol intake: never Substance use: never Substance use type: does not use Lack of Transportation: No Lack of Food: Never True Current Housing: I Have Housing Concerned About Future Housing: No Difficulty Paying Gas/Electric Bills: No Difficulty Paying for Meds: No Currently Unemployed: No Education: High School Diploma/GED Difficulty w/ Childcare or Family Care: No Living arrangements: with family Additional living arrangements comments: Occupation/Education: retired Gender identity (if verbalized by the patient): Male Sexual Orientation (if Verbalized by the Patient): Straight or Heterosexual Spiritual care concerns: No Anes - Eval Final PreProcedure Day of Procedure 08/08/23 06:48 Patient weight: normal Heart: regular rate and rhythm Lungs: decreased breath sounds Airway: Mallampati scale class II Neurological: alert and oriented Last oral intake: >/= 8 hours ASA classification: III Emergent: no Anesthetic plan: proceed Anesthesia type and monitoring: general GIVS and standard monitoring Results Review: All pre-operative results and documents have been reviewed as part of the pre-operative evaluation. Informed Consent: The patient's anesthetic plan and its attendant risks and benefits we
[2023-08-08 07:00] VITALS: BP 145/74; PULSE 55; RESP 14; TEMP 36.6; O2SAT 99
[2023-08-08] MEDS: LACTATED RINGERS 1,000 ML 30 ML IV CONT ×2 (07:00→09:25)
--- NOTE | 2023-08-08 07:12 | WPDHPUPDATE1 ---
History and Physical Update Update Date/Time: 08/08/23 07:12 History and Physical has been reviewed, including an updated exam of the patient. There are NO changes in the patient's condition. Risks, benefits, and alternatives have been discussed and questions answered. Patient agrees to proceed with procedure.
[2023-08-08] MEDS: BACITRACIN OINTMENT 15 GM TUBE 1 APPLIC TOPICAL (07:30)
[2023-08-08] MEDS: LIDO 1%/EPINEPHRINE 1:100,000 50 ML VIAL 8 ML INFILTRATE (07:30)
[2023-08-08 09:25] VITALS: BP 101/44; PULSE 73; RESP 14; O2SAT 94
--- NOTE | 2023-08-08 09:46 | W.PM.PROC2 ---
Procedure Note - Detailed Date of Procedure 08/08/23 Pre-op Diagnosis left carpal and cubital tunnel syndrome Post-op Diagnosis Same Procedure Performed Mr. Yuan's left carpal and cubital tunnel sites were marked with his consent. He was taken to the operating room where the left upper extremity was prepped and draped in usual fashion. A tourniquet was applied. The 2 sites were marked for the incisions. Both prior incisions appear to have been somewhat long especially at the elbow. These areas were then infiltrated with 1% lidocaine with epinephrine. The extremity was exsanguinated with a 4 in Corbin wrap and the tourniquet inflated to 250 mmHg. The carpal tunnel was done 1st with an incision as marked, this was eventually extended in zigzag fashion proximally across the wrist. Blunt and sharp dissection through the scarred aponeurosis and transverse retinaculum exposed the median nerve. It appeared to me distally that there was a portion of the retinaculum that had not previously been divided, this was about a quarter of an inch wide and laid just distal to some muscle. I divided this. Proximally we explored proximal to the retinaculum into the carpal ligament and divided additional fascia that may have caused compression on the nerve. The nerve was surrounded by scar but this was pliable. We did not do neuro lysis. That wound was closed with interrupted and running 4-0 nylon. Attention was turned to the elbow which was flexed and supported on folded towels. The incision was made throughout the length planned which was the length of the scar. The subcutaneous tissue was divided with electrocautery and/or scissors. The medial epicondyle and olecranon were identified. He has a robust triceps muscle. The flexor muscle fascia in the forearm was identified. The nerve was finally identified distally after dissecting through flexor muscle fascia and muscle fibers. There, I was able to identify what appeared to be previously undissected nerve. We followed this proximally and encountered what appeared to be an intact Gale's ligament. More proximally it appeared that there was an intact intermuscular septum. It was not clear to me that the nerve had been transposed. The proximal ulnar nerve at the extremes of our incision seemed to be normal, soft, pliable and were measured at 6-7 mm in diameter. In the region of the Gale ligament the nerve was measured at 3 mm in diameter. It appeared that this was surely the most constricted area. Distal to the medial condyle the narrow ulnar nerve appeared to be joined by a truncated scared segment of nerve 3 mm in diameter. It seemed to possibly be a damaged segment of ulnar nerve that might once have belonged to the main nerve and could have accounted for the narrow segment. I did not find a nerve trunk proximal to the medial epicondyle, where the ulnar nerve resumed its 6 mm diameter, that seemed to match it. In dissecting the skin flap anteriorly I did lacerate a 3 mm previously undissected nerve which lay medial and superficial to the medial epicondyle and we found the opposing trunk. I did repair this with a single 6 0 nylon suture and this was protected the remainder of the case. The tourniquet was released, bleeding points were cauterized and intradermal 3-0 Monocryl interrupted sutures were placed at cross hatching cheney at multiple sites and the skin was closed with a running 3-0 Monocryl intradermal running suture. The usual bandages were applied both sites and the patient was discharged from the operating room stable condition. This being discharged home with a prescription for plain oxycodone 5 mg 7. And instructions in wound care and follow-up. Surgeon Leo Tang MD Anesthesia MAC Description of Procedure Mr. Yuan's left carpal and cubital tunnel sites were marked with his consent. He was taken to the operating room where the left upper extremity was prepped and draped i
[2023-08-08 09:55] VITALS: BP 121/68; PULSE 62; RESP 16; O2SAT 99
[2023-08-08 10:25] VITALS: BP 123/74; PULSE 63; RESP 18
== END 2023-08-08 10:30 | disposition home or self-care (01) ==
PROVIDERS: PCP Family Medicine; Visit Provider Plastic Surgery
PROC: (CPT 64721; principal; 2023-08-08 07:30)
DX: G56.02 Carpal tunnel syndrome, left upper limb (principal); G56.22 Lesion of ulnar nerve, left upper limb; J44.9 Chronic obstructive pulmonary disease, unspecified; N40.0 Benign prostatic hyperplasia without lower urinary tract symptoms; I10 Essential (primary) hypertension; E78.5 Hyperlipidemia, unspecified; I27.20 Pulmonary hypertension, unspecified; G35 Multiple sclerosis; R73.03 Prediabetes; Z87.891 Personal history of nicotine dependence; Z79.51 Long term (current) use of inhaled steroids
CPT/HCPCS: 64721; 64718; A9270; J2250; J3010; J7120

== ENCOUNTER 2023-08-30 12:40 | Outpatient (CLI) | payer MEDICARE, OTHER, SELFPAY ==
--- NOTE | ~2023-08-30 | CT_ITS ---
CT Scan of the Chest without Contrast: Clinical Indication: Lung cancer screening, smoking history Technique: Contiguous sections were acquired throughout the chest without intravenous contrast. Dose reduction technique was used on this scan by utilizing automated exposure control and iterative recon struction technique. The dose-length product (DLP) was 111.61 mGy-cm. COMPARISON: 08/29/2022, 08/04/2021 Findings: There is no evidence of any significant mediastinal, hilar or axillary lymphadenopathy. The mediastin al soft tissues appear normal. There is no evidence of pleural or pericardial effusion. Biapical scarring present. Stable 4 mm right apical pulmonary nodule present. There is minimal emphys zulma. Images through the upper abdomen reveal no abnormalities. Impression: Lung RADS 2: Benign appearance. 12 month follow-up screening CT advised. Reviewed, dictated and finalized at [facility]. 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 12 month follow-up screening CT advised.
== END 2023-08-30 12:41 | disposition home or self-care (01) ==
LOC: ANHIMG 12:41
PROVIDERS: PCP Family Medicine; Visit Provider Internal Medicine Critical Care Medicine
DX: Z12.2 Encounter for screening for malignant neoplasm of respiratory organs (principal); Z87.891 Personal history of nicotine dependence
CPT/HCPCS: 71271

== ENCOUNTER 2023-11-19 07:56 | Outpatient (CLI) | payer MEDICARE, OTHER, SELFPAY ==
[2023-11-19 08:26] LABS: Basophils Percent Auto 0.5 % (0.2-1.2); Eosinophils Absolute Auto 0.1 K/mm3 (0-0.3); Eosinophils Percent Auto 2.2 % (0-4.4); Hematocrit 46.5 % (42.0-52.0); Hemoglobin 14.9 g/dL (14.0-18.0); Immature Granulocyte Absolute 0.01 K/mm3 (0.00-0.031); Immature Granulocyte Percent A 0.2 % (0-0.5); Lymphocytes Absolute Auto 0.67 K/mm3 (0.9-3.2); Lymphocytes Percent Auto 16.3 % (18.3-44.2); Mean Corpuscular Hemoglobin 26.9 pg (26-34); Mean Corpuscular Volume 83.9 fl (80-100); Mean Platelet Volume 9.5 fl (7.4-10.4); Monocytes Absolute Auto 0.8 K/mm3 (0.1-0.6); Monocytes Percent Auto 19.2 % (2.6-8.5); Neutrophils Absolute Auto 2.5 K/mm3 (1.3-6.7); Neutrophils Percent Auto 61.6 % (45.5-73.1); Platelet Count Result 198 k/mm3 (150-375); Red Blood Count 5.54 M/mm3 (4.6-6.20); Red Cell Distribution Width 15.2 % (11.5-14.5); White Blood Count 4.1 K/mm3 (4.5-10.0)
[2023-11-19 08:38] LABS: Alanine Aminotransferase 81 U/L (6-50); Albumin Level 4.4 g/dL (3.5-5.1); Alkaline Phosphatase 102 U/L (38-126); Anion Gap 8 mmol/L (8-16); Aspartate Amino Transferase 43 U/L (17-59); Blood Urea Nitrogen 12 mg/dL (9-20); Calcium 9.2 mg/dL (8.4-10.2); Carbon Dioxide 23 mmol/L (22-30); Chloride 105 mmol/L (98-107); Cholesterol 166 mg/dL (0-200); Estimated Glomerular Filt Rate > 60; Glucose 117 mg/dL (65-110); HDL Direct 44 mg/dL; Potassium 3.9 mmol/L (3.4-5.0); Sodium 136 mmol/L (137-145); Triglycerides 134 mg/dL (<150)
[2023-11-19 08:50] LABS: LDL Cholesterol Direct 90 mg/dL
[2023-11-19 08:58] LABS: Hemoglobin A1C 6.2 % (<5.7)
[2023-11-19 09:12] LABS: Vitamin D 25 Hydroxy 74.8 ng/mL
== END 2023-11-19 07:57 | disposition home or self-care (01) ==
LOC: ANHLAB 08:00
PROVIDERS: PCP Family Medicine; Visit Provider Family Medicine
DX: J43.9 Emphysema, unspecified (principal); I10 Essential (primary) hypertension; E53.8 Deficiency of other specified B group vitamins; E78.5 Hyperlipidemia, unspecified; R73.03 Prediabetes; E55.9 Vitamin D deficiency, unspecified
CPT/HCPCS: 36415; 80053; 80061; 82306; 82607; 83036; 84443; 85025

== ENCOUNTER 2024-05-22 02:08 | Day surgery (SDC) | payer MEDICARE, OTHER, SELFPAY ==
--- NOTE | 2024-05-16 07:15 | PM.HPGS ---
History of Present Illness History of Present Illness Consent: Risks, benefits, and alternatives have been discussed and questions answered. Patient agrees to proceed with procedure. Chief complaint: elevated psa Narrative: Gregor Yuan is a 69 year old male Who has a chronic PSA elevation with 1 prior negative biopsy by an outside urologist ( Dr. Parker). He has now had progression in his PSA to 11 point 3 5. Prostate MRI shows a PI-RADS 4, 1.4cm lesion in the right posterior peripheral zone mid prostate. After discussion of options he is elected for Uronav., MRI guided biopsy. He is aware of the risks including, but not limited to, rectal bleeding, hematuria, fair to a prostate cancer Review of Systems Review of Systems: All systems reviewed & are unremarkable except as noted in HPI and below PMFSH Past Medical History Medical History Back pain Bilateral carpal tunnel syndrome BPH (benign prostatic hyperplasia) Chronic obstructive pulmonary disease Dyslipidemia Essential hypertension History of colon polyps History of tobacco abuse Hyperlipidemia Multiple sclerosis Prediabetes Pulmonary hypertension Skin cancer Surgical History Surgical History History of carpal tunnel release (~2001) left x2 - 2001, 08/2023 S/P cubital tunnel release (~2022) left x2 - 2001, 08/2023 Family History Family History Sibling Diabetes mellitus Hypertension Family history of throat cancer Mother Diabetes mellitus Cerebrovascular accident Family history of congestive heart failure Father Family history of alcoholism Cerebrovascular accident Sibling Heart transplanted, Onset Age: 58 2017 Other Family history of heart disease in male family member before age 55 Family history of hypercholesterolemia Family history of malignant neoplasm Social History Social History Smoking packs per day: 0.75 Smoking cigarettes per day: 15.0 Years smoked: 40 Smoking pack-years: 30.00 Smoking status: Former smoker Tobacco type: cigarettes Smoking end date: 05/01/20 Alcohol intake: never Substance use: never Substance use type: does not use Lack of Transportation: No Lack of Food: Never True Current Housing: I Have Housing Concerned About Future Housing: No Difficulty Paying Gas/Electric Bills: No Difficulty Paying for Meds: No Currently Unemployed: No Education: High School Diploma/GED Difficulty w/ Childcare or Family Care: No Living arrangements: with family Additional living arrangements comments: Occupation/Education: retired Gender identity (if verbalized by the patient): Male Sexual Orientation (if Verbalized by the Patient): Straight or Heterosexual Spiritual care concerns: No Meds Home Medications and Allergies Home Medications Medication Instructions Recorded Confirmed Type ozanimod 0.92 mg capsule (Zeposia) 0.92 mg PO HS 06/17/21 11/13/23 History finasteride 5 mg tablet 5 mg PO HS 04/11/23 11/13/23 History duloxetine 30 mg capsule,delayed 30 mg PO BID 09/11/23 11/13/23 History release lisinopril 40 mg tablet 40 mg PO DAILY #90 tabs 11/12/23 11/13/23 Rx pregabalin 75 mg capsule 75 mg PO BID 11/13/23 11/13/23 History rosuvastatin 20 mg tablet 20 mg PO QHS #90 tabs 05/05/24 Rx Allergies Allergy/AdvReac Type Severity Reaction Status Date / Time gabapentin Allergy Intermediate Muscle Verified 11/13/23 13:18 Spasms Exam Const: General: no acute distress Resp: Effort & Inspection: normal respiratory effort GI: Inspection: non-distended GI Palp: No abdominal tenderness and No Guarding due to palpation present (GI) Auscultation: normal bowel sounds Assessment and Plan Assessment and plan (1) Elevate
[2024-05-16 14:33] VITALS: BMI 25.7
--- NOTE | 2024-05-16 14:33 | PC.NURSE ---
Report to the Outpatient Waiting Room, entrance under the green pavilion located off [facility], at time _0800_ on date _[id number]_. Planned Procedure Time: _1000_. Time changes happen often and if your time is changed the preop area will call you the afternoon before. - You and your visitor will be asked to self-screen and do not enter if you have any COVID symptoms. - A mask is optional within the hospital at this time. Patients may have clear liquids (water, carbonated beverages, clear teas, apple juice) until 3 hours prior to surgery with a maximum of 20 ounces. - No food from midnight until time of surgery Take the following medications with a SIP of water the morning of surgery: ___Pregabalin DO NOT STOP ANY OF YOUR OTHER PRESCRIPTION MEDICATIONS PRIOR TO SURGERY ?EXCEPT THE FOLLOWING Medications to discontinue per physician None Date to take last dose Please no make-up, nail malagasy, hairspray, perfume, deodorant, or body powder the day of surgery. No jewelry (including any body piercings) or valuables the day of surgery, leave them at home. Please take a shower or bath the night before, or the morning of, surgery with an antibacterial soap. Wear comfortable, loose fitting clothing. - Jewelry must be removed prior to entering the operating room. Rings and piercings that are not removed may be cut off. - The hospital will not accept responsibility for valuables. - Please leave all valuables, including medications, at home the day of surgery. If you are going home after surgery, a licensed screw driver operator must drive you home. - NO public transportation without another adult if you receive anesthesia. - We recommend that an adult stay with you for 24 hours following discharge. - We also recommend that you do not drive, make important decision, drink alcoholic beverages, or take any drugs that were not prescribed by your health care provider for at least 24 hours after your discharge time. Follow any additional instructions given to you from your surgeon. If you or anyone in your household have experienced Covid symptoms in the past week, please notify your surgeon or the nurse liaison at the phone number below for possible testing. Telephone instructions given to __Larry___and asked if any additional questions and then verbalized understanding. Patient advised to call surgeon office or pre surgery nurse liaison [phone] if any additional questions.
--- NOTE | 2024-05-22 06:05 | WPDHPUPDATE1 ---
History and Physical Update Update Date/Time: 05/22/24 06:05 History and Physical has been reviewed, including an updated exam of the patient. There are NO changes in the patient's condition. Risks, benefits, and alternatives have been discussed and questions answered. Patient agrees to proceed with procedure.
[2024-05-22 08:30] VITALS: BP 135/68; PULSE 54; RESP 16; TEMP 36.4; O2SAT 99
[2024-05-22] MEDS: LACTATED RINGERS 1,000 ML 30 ML IV CONT (08:30)
--- NOTE | 2024-05-22 08:45 | WPDANESEPPF ---
Anes - Initial Pre Proc Eval Procedure: Operation Date: 05/22/24 10:00 Proposed Procedures p Transrectal Ultrasound Fusion Guided Prostate Biopsy - Serjio Juarez MD Date/Time: 05/22/24 08:45 Surgeon: Serjio Juarez MD Pre Op Diagnosis: elevated psa Patient Data Age: 69 Gender: M Height: 1.8 m Weight: 83.6 kg Allergies Allergy/AdvReac Type Severity Reaction Status Date / Time gabapentin Allergy Intermediate Muscle Verified 05/16/24 14:26 Spasms Home Medications Medication Instructions Recorded Confirmed Type ozanimod 0.92 mg capsule (Zeposia) 0.92 mg PO HS 06/17/21 05/16/24 History finasteride 5 mg tablet 5 mg PO HS 04/11/23 05/16/24 History lisinopril 40 mg tablet 40 mg PO DAILY #90 tabs 11/12/23 05/16/24 Rx pregabalin 75 mg capsule 75 mg PO BID 11/13/23 05/16/24 History rosuvastatin 20 mg tablet 20 mg PO QHS #90 tabs 05/05/24 05/16/24 Rx Patient hx anesthesia problems: none Family hx anesthesia problems: none Results Review: All pre-operative results and documents have been reviewed as part of the pre-operative evaluation. [facility] Past Medical History Medical History Back pain Bilateral carpal tunnel syndrome BPH (benign prostatic hyperplasia) Chronic obstructive pulmonary disease Dyslipidemia Essential hypertension History of colon polyps History of tobacco abuse Hyperlipidemia Multiple sclerosis Prediabetes Pulmonary hypertension Skin cancer Surgical History Surgical History History of carpal tunnel release (~2001) left x2 - 2001, 08/2023 S/P cubital tunnel release (~2022) left x2 - 2001, 08/2023 Family History Family History Sibling Diabetes mellitus Hypertension Family history of throat cancer Mother Diabetes mellitus Cerebrovascular accident Family history of congestive heart failure Father Family history of alcoholism Cerebrovascular accident Sibling Heart transplanted, Onset Age: 58 2016 Other Family history of heart disease in male family member before age 55 Family history of hypercholesterolemia Family history of malignant neoplasm Social History Social History Smoking packs per day: 0.75 Smoking cigarettes per day: 15.0 Years smoked: 40 Smoking pack-years: 30.00 Smoking status: Former smoker Tobacco type: cigarettes Smoking end date: 05/16/20 Alcohol intake: never Substance use: never Substance use type: does not use Lack of Transportation: No Lack of Food: Never True Current Housing: I Have Housing Concerned About Future Housing: No Difficulty Paying Gas/Electric Bills: No Difficulty Paying for Meds: No Currently Unemployed: No Education: High School Diploma/GED Difficulty w/ Childcare or Family Care: No Living arrangements: with family Additional living arrangements comments: Occupation/Education: retired Gender identity (if verbalized by the patient): Male Sexual Orientation (if Verbalized by the Patient): Straight or Heterosexual Spiritual care concerns: No Anes - Eval Final PreProcedure Day of Procedure 05/22/24 08:45 Patient weight: normal Heart: regular rate and rhythm Lungs: clear to auscultation Airway: Mallampati scale class II Neurological: alert and oriented Last oral intake: >/= 8 hours ASA classification: III Emergent: no Anesthetic plan: proceed Anesthesia type and monitoring: general and standard monitoring Results Review: All pre-operative results and documents have been reviewed as part of the pre-operative evaluation. HTN, hyperlipidemia, Ex smoker quit 2021. EKG w NSR from 2022. Informed Consent: The patient's anesthetic plan and its attendant risks and benefits were discussed with the patient/f
--- NOTE | 2024-05-22 10:39 | P.OP_ITS ---
Procedure Note - Detailed Date of Procedure 05/22/24 Pre-op Diagnosis Elevated PSA, Abnormal prostate MRI with 1 region of interest Post-op Diagnosis Same Procedure Performed Uronav prostate biopsy Surgeon Serjio Juarez MD Anesthesia MAC Description of Procedure Patient is brought to the operative suite where he is positioned in the left lateral position. Systemic sedation is administered per the anesthesia department. Surgical time-out is undertaken and it's verified the patient has received preoperative antibiotics. Transrectal ultrasonography is undertaken with a standard transrectal probe. The [employer] system is used to superimpose his previously obtained mpMRI prostate images on the real-time transrectal ultrasond images. Prostate volume is calculated at []cc. On the previous mpMRI there are one region of interest. Using the transrectal needle design for prostate biopsies 3 cores from that region of interest was obtained. We then proceeded with a standard 12 core prostate biopsy. Transrectal probe was removed and patient taken to recovery room having tolerated the procedure well. Blood loss was less than 10 cc. Drains No Packing No Pathology Yes Complications No immediate complications Condition Stable
[2024-05-22 10:41] VITALS: BP 84/55; PULSE 62; RESP 14; O2SAT 97
[2024-05-22 11:00] VITALS: BP 114/69; PULSE 54; RESP 18
[2024-05-22 11:30] VITALS: BP 133/75; PULSE 62; RESP 18
== END 2024-05-22 11:20 | disposition home or self-care (01) ==
PROVIDERS: PCP Family Medicine; Visit Provider Urology
PROC: (CPT 55700; principal; 2024-05-22 10:00)
DX: C61 Malignant neoplasm of prostate (principal); R97.20 Elevated prostate specific antigen [PSA]; I10 Essential (primary) hypertension; E78.00 Pure hypercholesterolemia, unspecified; N40.1 Benign prostatic hyperplasia with lower urinary tract symptoms; G56.03 Carpal tunnel syndrome, bilateral upper limbs; J44.9 Chronic obstructive pulmonary disease, unspecified; G35 Multiple sclerosis; R73.03 Prediabetes; Z98.890 Other specified postprocedural states; Z86.010 Personal history of colon polyps; Z85.828 Personal history of other malignant neoplasm of skin; Z87.891 Personal history of nicotine dependence; Z80.1 Family history of malignant neoplasm of trachea, bronchus and lung; Z82.49 Family history of ischemic heart disease and other diseases of the circulatory system
CPT/HCPCS: 76872; 55700; G0416; J0690; J0696; J2704; J3010; J7120

== ENCOUNTER 2024-06-06 08:53 | Outpatient (CLI) | payer MEDICARE, OTHER, SELFPAY ==
--- NOTE | ~2024-06-06 | NM_ITS ---
EXAMINATION: NM bone scan whole body DATE: 06/06/2024 13:01 INDICATION: Malignant neoplasm with hormone sensitive status TECHNIQUE: 25.6 mCi Tc-99m HDP was administered intravenously. Delayed whole-body scintigrams were o btained. COMPARISON: CT abdomen pelvis dated 06/06/2024 and brain MR dated 02/16/2023 FINDINGS: Typical pattern of likely degenerative joint centered uptake at the bilateral acromioclavicular and s ternoclavicular joints and at a few joints in the bilateral mid and forefeet. Mild likely enthesopath ic uptake at the bilateral patellae, anterior tibial tuberosities and posterior calcaneal tuberositie s. There is mild increased uptake associated with severe bilateral facet osteoarthritis at L4-L5 as s een on CT. There is likely degenerative disc and facet joint centered uptake in the cervical spine. S mall focus of likely dental disease related uptake at the right mandible. There are couple indetermin ate foci of increased uptake at the posterior left calvarium. IMPRESSION: 1. Multiple indeterminate foci of increased uptake at the left posterior calvarium. Would recommend p re and postcontrast head CT or MRI for further evaluation. 2. Additional typical pattern of scattered likely degenerative uptake as detailed above. Reviewed, dictated and finalized at location A. IMPRESSION: 1. Multiple indeterminate foci of increased uptake at the left posterior calvar ium. Would recommend pre and postcontrast head CT or MRI for further evaluation . 2. Additional typical pattern of scattered likely degenerative uptake as detail ed above.
--- NOTE | ~2024-06-06 | CT_ITS ---
CT of the Abdomen and Pelvis: Indication: Malignancy Technique: 2.5 mm axial scans were obtained through the abdomen and pelvis following intravenous adm inistration of 100 cc of Omnipaque 350. Dose reduction technique was used on this scan by utilizing a utomated exposure control and iterative reconstruction technique. The dose-length product (DLP) was 6 41.99 mGy-cm. Findings: Scans through the lung bases are unremarkable. There is diffuse hepatic steatosis. The spleen, pancreas, gallbladder, adrenals and kidneys are withi n normal limits. There are atherosclerotic calcifications of the aorta. No lymphadenopathy. No bowel obstruction or bowel wall thickening. There is sigmoid diverticulosis. Images through the pelvis were performed. Urinary bladder unremarkable. Prostate gland mildly enlarge d. No pelvic mass evident. No ascites. Impression: No evidence of malignancy or metastatic disease. Diffuse hepatic steatosis. Reviewed, dictated and finalized at [facility]. Impression: No evidence of malignancy or metastatic disease. Diffuse hepatic steatosis.
[2024-06-06 09:12] LABS: Estimated Glomerular Filt Rate > 60
== END 2024-06-06 08:54 | disposition home or self-care (01) ==
LOC: ANHIMG 08:55
PROVIDERS: PCP Family Medicine; Visit Provider Urology
DX: C80.1 Malignant (primary) neoplasm, unspecified (principal); Z19.1 Hormone sensitive malignancy status; K76.0 Fatty (change of) liver, not elsewhere classified
CPT/HCPCS: 36415; 74177; 78306; 80053; 85025; A9503; Q9967

== ENCOUNTER 2024-06-06 09:35 | Outpatient (CLI) | payer MEDICARE, OTHER, SELFPAY ==
[2024-06-06 09:58] LABS: Basophils Percent Auto 0.2 % (0.2-1.2); Eosinophils Absolute Auto 0.1 K/mm3 (0-0.3); Hematocrit 46.8 % (42.0-52.0); Hemoglobin 15.4 g/dL (14.0-18.0); Immature Granulocyte Absolute 0.02 K/mm3 (0.00-0.031); Immature Granulocyte Percent A 0.4 % (0-0.5); Lymphocytes Absolute Auto 0.58 K/mm3 (0.9-3.2); Lymphocytes Percent Auto 12.8 % (18.3-44.2); Mean Corpuscular HGB Conc 32.9 g/dl (32-36); Mean Corpuscular Hemoglobin 27.4 pg (26-34); Mean Corpuscular Volume 83.3 fl (80-100); Mean Platelet Volume 9.3 fl (7.4-10.4); Monocytes Absolute Auto 0.8 K/mm3 (0.1-0.6); Monocytes Percent Auto 16.8 % (2.6-8.5); Neutrophils Absolute Auto 3.1 K/mm3 (1.3-6.7); Neutrophils Percent Auto 67.8 % (45.5-73.1); Platelet Count Result 211 k/mm3 (150-375); Red Blood Count 5.62 M/mm3 (4.6-6.20); Red Cell Distribution Width 15.2 % (11.5-14.5); White Blood Count 4.5 K/mm3 (4.5-10.0)
[2024-06-06 10:14] LABS: Alanine Aminotransferase 72 U/L (6-50); Albumin Level 4.1 g/dL (3.5-5.1); Alkaline Phosphatase 93 U/L (38-126); Anion Gap 5 mmol/L (4-12); Aspartate Amino Transferase 52 U/L (17-59); Bilirubin,Total 1.2 mg/dL (0.2-1.3); Blood Urea Nitrogen 15 mg/dL (9-20); Carbon Dioxide 30 mmol/L (22-30); Chloride 101 mmol/L (98-107); Estimated Glomerular Filt Rate > 60; Glucose 100 mg/dL (65-110); Potassium 4.2 mmol/L (3.4-5.0); Sodium 136 mmol/L (137-145)
== END 2024-06-06 09:36 | disposition home or self-care (01) ==
PROVIDERS: PCP Family Medicine
DX: G35 Multiple sclerosis (principal)
CPT/HCPCS: 36415; 80053; 85025

== ENCOUNTER 2024-07-15 08:37 | Outpatient (CLI) | payer MEDICARE, OTHER, SELFPAY ==
--- NOTE | ~2024-07-15 | MR_ITS ---
MRI of the cervical spine Clinical History: Multiple sclerosis Technique: Axial T2-weighted and gradient images, and sagittal T1-weighted, T2-weighted, and STIR edna ges were acquired. Following intravenous administration of 17 cc MultiHance gadolinium, T1-weighted f at-sat imaging was performed in the axial and sagittal planes. COMPARISON: 02/16/2023 Findings: No fracture or subluxation seen. Osseous alignment is stable from prior exam. No suspicious bone marrow signal abnormality. At C2-C3, there is no disc bulge or herniation. No spinal canal stenosis, cord compression, or neural foraminal narrowing. At C3-C4, there is minimal disc ossify complex. There is mild bilateral neural foraminal narrowing. N o spinal canal stenosis or cord compression. At C4-C5, there is severe degenerative spurring. There is mild disc ossify complex with bilateral cristal ral foraminal narrowing, left worse than right. There is mild canal stenosis without rudolph cord compr ession. At C5-C6, there is mild disc ossify complex. There is right facet arthropathy greater than left. Ther e is severe right neural foraminal narrowing and probable mild left neural foraminal narrowing. No ca nal stenosis or cord compression. At C6-C7, there is minimal disc osteophyte complex. There is bilateral neural foraminal narrowing, ri ght worse than left. No canal stenosis or cord compression. Stable small hyperintense cord lesions, as noted with the C2-C3 level. Paravertebral soft tissues are unremarkable. No abnormal postcontrast enhancement. Impression: Stable small hyperintense cord lesions, most notably at the C2-C3 levels. Findings could reflect demy elinating disease/multiple sclerosis. Degenerative spondylosis, as detailed above, similar to prior exam. Reviewed, dictated and finalized at [facility]. Impression: Stable small hyperintense cord lesions, most notably at the C2-C3 levels. Findi ngs could reflect demyelinating disease/multiple sclerosis. Degenerative spondylosis, as detailed above, similar to prior exam.
--- NOTE | ~2024-07-15 | MR_ITS ---
MRI of the thoracic spine Clinical History: Multiple sclerosis Technique: Axial T2-weighted and gradient images, and sagittal T1-weighted, T2-weighted, and STIR edna ges were acquired. Following intravenous administration of 17 cc MultiHance gadolinium, T1-weighted fat-sat imaging was performed in the axial and sagittal planes. Findings: No acute fracture or subluxation seen in the thoracic spine. Minimal chronic loss of height at T6 noted. No suspicious bone marrow signal abnormality seen. No significant disc bulge or herniation seen in the thoracic spine. No spinal canal stenosis or cord compression. Probable mild bilateral neural foraminal narrowing at T9-T10 and T10-T11. No abnormal signal seen in the thoracic spinal cord. No epidural mass or collection seen. No abnormal postcontrast enhancement. Paravertebral soft tissues are unremarkable.. Impression: Mild degenerative spondylosis, as above. Probable minimal chronic loss of height of T6. Reviewed, dictated and finalized at [facility]. Impression: Mild degenerative spondylosis, as above. Probable minimal chronic loss of height of T6.
--- NOTE | ~2024-07-15 | MR_ITS ---
MRI of the brain Clinical History: Multiple sclerosis Technique: Axial and sagittal T1-weighted images were acquired. These were followed by axial T2-weigh [place], diffusion weighted, gradient, and FLAIR images. Following intravenous administration of 17 cc Mu ltiHance gadolinium, T1-weighted fat-sat imaging was performed in the axial, coronal, and sagittal pl anes. COMPARISON: 02/16/2023 Findings: No acute infarct, intracranial hemorrhage or mass lesion is a. A few focal small FLAIR hype rintense lesions are present in the subcortical/periventricular white matter, stable to minimally imp roved from prior exam. Ventricles and subarachnoid spaces are unremarkable. Orbits are unremarkable. Paranasal sinuses and m astoid air cells are clear. Major intracranial flow voids are intact. Sagittal midline structures are intact. No abnormal postcontrast enhancement identified. IMPRESSION: Minimal white matter disease, stable to minimally improved from prior exam. Findings could reflect ch ronic microvascular ischemic change versus small demyelinating plaques. Reviewed, dictated and finalized at location M. IMPRESSION: Minimal white matter disease, stable to minimally improved from prior exam. Fin dings could reflect chronic microvascular ischemic change versus small demyelin ating plaques.
== END 2024-07-15 08:38 | disposition home or self-care (01) ==
PROVIDERS: PCP Family Medicine
DX: G35 Multiple sclerosis (principal); M47.894 Other spondylosis, thoracic region; M47.892 Other spondylosis, cervical region; R90.82 White matter disease, unspecified
CPT/HCPCS: 70553; 72156; 72157; A9577

== ENCOUNTER 2024-08-19 11:41 | Outpatient (CLI) | payer MEDICARE, OTHER, SELFPAY ==
--- NOTE | ~2024-08-19 | XR_ITS ---
XR chest 2V Ordering provider: Serjio Juarez MD History: 69 years Male with . C61 - Malignant neoplasm of prostate, MANAGED BLOOD PRESSURE . Comparison: None. FINDINGS: MEDIASTINUM: The cardiac silhouette is not enlarged. LUNGS: No infiltrates, effusions or pneumothorax. OTHER: No free air under the diaphragm. IMPRESSION: No acute cardiopulmonary pathology. Reviewed, dictated and finalized at location A. [employer]ING [employer]CH[employer]IC
--- NOTE | 2024-08-19 12:49 | ECG_ITS ---
Test Date: 2024-08-19 13:36:20 Measurements Intervals [place] Rate: 56 P: 56 [place]: 189 QRS: -6 QRSD: 97 T: 29 QT: 433 QTc: 420 Interpretive Statements SINUS BRADYCARDIA BORDERLINE R WAVE PROGRESSION, ANTERIOR LEADS BASELINE ARTIFACT- I, II, AVR, AVL, AVF BORDERLINE ECG No previous ECG available for comparison Electronically Signed On 08-19-2024 13:39:36 [employer]INTING MACHINE [employer] by oJse Daniel Gold D.O.
[2024-08-19 14:06] LABS: Basophils Percent Auto 0.4 % (0.2-1.2); Eosinophils Absolute Auto 0.1 K/mm3 (0-0.3); Eosinophils Percent Auto 1.5 % (0-4.4); Hemoglobin 15.4 g/dL (14.0-18.0); Immature Granulocyte Absolute 0.02 K/mm3 (0.00-0.031); Immature Granulocyte Percent A 0.4 % (0-0.5); Lymphocytes Absolute Auto 0.68 K/mm3 (0.9-3.2); Mean Corpuscular HGB Conc 32.1 g/dl (32-36); Mean Corpuscular Hemoglobin 26.7 pg (26-34); Mean Corpuscular Volume 83.3 fl (80-100); Monocytes Absolute Auto 0.8 K/mm3 (0.1-0.6); Neutrophils Percent Auto 65.7 % (45.5-73.1); Platelet Count Result 221 k/mm3 (150-375); Red Blood Count 5.76 M/mm3 (4.6-6.20); Red Cell Distribution Width 15.3 % (11.5-14.5); White Blood Count 4.5 K/mm3 (4.5-10.0)
[2024-08-19 14:10] LABS: Add Urine Microscopic? NO; Appearance Urine Clear (Clear); Bilirubin Urine Negative (Negative); Blood Urine Negative (Negative); Color Urine Yellow (Yellow); Glucose Urine UA Negative (Negative); Ketones Urine Negative (Negative); Leukocyte Esterase Ur Negative LEU/UL (Negative); Nitrate Urine Negative (Negative); Protein Urine Negative (Negative); Specific Grav Ur 1.008 (1.001-1.035); Urobilinogen Urine 0.2 mg/dL (<2.0)
[2024-08-19 14:16] LABS: Alanine Aminotransferase 88 U/L (6-50); Albumin Level 4.5 g/dL (3.5-5.1); Alkaline Phosphatase 101 U/L (38-126); Anion Gap 8 mmol/L (4-12); Aspartate Amino Transferase 44 U/L (17-59); Bilirubin,Total 1.2 mg/dL (0.2-1.3); Blood Urea Nitrogen 10 mg/dL (9-20); Carbon Dioxide 24 mmol/L (22-30); Chloride 106 mmol/L (98-107); Estimated Glomerular Filt Rate > 60; Glucose 104 mg/dL (65-110); Potassium 3.8 mmol/L (3.4-5.0); Sodium 138 mmol/L (137-145)
[2024-08-19 14:19] LABS: INR 0.9; Prothrombin Time 13.1 Seconds (11.1-14.7)
== END 2024-08-19 11:42 | disposition home or self-care (01) ==
LOC: ANHSURGERY 11:52
PROVIDERS: PCP Family Medicine; Visit Provider Urology
DX: C61 Malignant neoplasm of prostate (principal); Z01.818 Encounter for other preprocedural examination; R94.31 Abnormal electrocardiogram [ECG] [EKG]
CPT/HCPCS: 36415; 71046; 80053; 81003; 85025; 85610; 85730; 93005

== ENCOUNTER 2024-09-01 10:55 | Outpatient (CLI) | payer MEDICARE, OTHER, SELFPAY ==
--- NOTE | ~2024-09-01 | CT_ITS ---
CT Scan of the Chest without Contrast: Clinical Indication: Lung cancer screening, nicotine dependence Technique: Contiguous sections were acquired throughout the chest without intravenous contrast. Dose reduction technique was used on this scan by utilizing automated exposure control and iterative recon struction technique. The dose-length product (DLP) was 118.09 mGy-cm. COMPARISON: 08/03/2023 Findings: There is no evidence of any significant mediastinal, hilar or axillary lymphadenopathy. Mild coronary artery calcification present.. There is no evidence of pleural or pericardial effusion. There is stable mild biapical scarring. There is moderate emphysema in the upper lobes. Stable 4 mm r ight apical pulmonary nodule. Images through the upper abdomen reveal no abnormalities. Impression: Lung RADS 2: Benign appearance. 12 month follow-up screening CT advised. Reviewed, dictated and finalized at [facility]. [employer] Impression: Lung RADS 2: Benign appearance. 12 month follow-up screening CT advised.
== END 2024-09-01 10:56 | disposition home or self-care (01) ==
LOC: ANHIMG 10:57
PROVIDERS: PCP Family Medicine; Visit Provider Internal Medicine Critical Care Medicine
DX: Z12.2 Encounter for screening for malignant neoplasm of respiratory organs (principal); Z87.891 Personal history of nicotine dependence
CPT/HCPCS: 71271

== ENCOUNTER 2024-09-04 09:49 | Inpatient (IN) | payer MEDICARE, OTHER, SELFPAY ==
[2024-08-19 12:04] VITALS: BMI 26.6
--- NOTE | 2024-08-19 12:19 | PC.NURSE ---
Report to the Outpatient Waiting Room, entrance under the green pavilion located off [facility], at time __06:00am on date 09/04/24___. Planned Procedure Time: _07:30am .? Time changes happen often and if your time is changed the preop area will call you the afternoon before. - You and your visitor will be asked to self-screen and do not enter if you have any COVID symptoms. Please call surgeon if you need to reschedule. - A mask is optional within the hospital at this time. Patients may have clear liquids (water, carbonated beverages, clear teas, apple juice) until 3 hours prior to surgery with a maximum of 20 ounces. - No food from midnight until time of surgery and no smoking. This includes no chewing gum, candy or mints.( 04:30am) Take only the following medications with a SIP of water on the morning of surgery: _ None DO NOT STOP ANY OF YOUR OTHER PRESCRIPTION MEDICATIONS PRIOR TO SURGERY EXCEPT THE FOLLOWING Medications to discontinue per physician All Pain medications, NSAIDS and supplements per Ann Date to take last dose____Per Dr Juarez. Please no make-up, nail south african, hairspray, perfume, deodorant, or body powder the day of surgery.? No jewelry (including any body piercings) or valuables the day of surgery, leave them at home.? Please take a shower or bath the night before, or the morning of, surgery with an antibacterial soap.? Wear comfortable, loose fitting clothing.? - Jewelry must be removed prior to entering the operating room.? Rings and piercings that are not removed may be cut off. - The hospital will not accept responsibility for valuables.? - Please leave all valuables, including medications, at home the day of surgery. If you are going home after surgery, a licensed cdl truck driver must drive you home.? - NO public transportation without another adult if you receive anesthesia. - We recommend that an adult stay with you for 24 hours following discharge. - We also recommend that you do not drive, make important decision, drink alcoholic beverages, or take any drugs that were not prescribed by your health care provider for at least 24 hours after your discharge time. Follow any additional instructions given to you from your surgeon. Telephone instructions given to __patient and asked if any additional questions and then verbalized understanding. Patient advised to call surgeon office or pre surgery nurse liaison [phone] if any additional questions.
--- NOTE | 2024-08-26 10:52 | P.HP_ITS ---
H&P: HPI History of Present Illness Date/Time: 08/26/24 10:52 Chief Complaint: Prostate cancer Narrative: 69-year-old with longstanding BPH recent developed the elevated PSA to 11.35. MRI guided biopsy revealed 4 of 13 cores ( all on the right side) with Drayden 4+3=7. This is consistent with a unfavorable intermediate risk prostate cancer. There was no evidence of perineural invasion or extracapsular extension on the biopsy. Staging CT scan the abdomen pelvis and bone scan was remarkable for some unusual uptake in his skull. Brain MRI failed to reveal any findings of metastatic disease. After careful discussion of the therapeutic options including active surveillance, radiation therapy in its various forms in robotic prostatectomy he has elected for the latter. He is aware the risk including, but not limited to, adverse cardiopulmonary events, need for additional therapy, rectal injury, urinary incontinence and erectile dysfunction. Review of Systems Cardiovascular: Cardiovascular: Denies chest pain, Denies lightheadedness, Denies palpitations and Denies dyspnea Respiratory: Respiratory: Denies dyspnea Gastrointestinal: Gastrointestinal: Denies diarrhea, Denies nausea and Denies vomiting Genitourinary: Genitourinary: Denies hematuria and Denies dysuria Endocrine: Endocrine: Denies palpitations [facility] Past Medical History Medical History Back pain Bilateral carpal tunnel syndrome BPH (benign prostatic hyperplasia) Chronic obstructive pulmonary disease Dyslipidemia Essential hypertension History of colon polyps History of tobacco abuse Hyperlipidemia Multiple sclerosis Prediabetes Pulmonary hypertension Skin cancer Surgical History Surgical History History of carpal tunnel release (~2001) left x2 - 2001, 08/2023 S/P cubital tunnel release (~2022) left x2 - 2001, 08/2023 Family History Family History Sibling Diabetes mellitus Hypertension Family history of throat cancer Mother Diabetes mellitus Cerebrovascular accident Family history of congestive heart failure Father Family history of alcoholism Cerebrovascular accident Sibling Heart transplanted, Onset Age: 58 2016 Other Family history of heart disease in male family member before age 55 Family history of hypercholesterolemia Family history of malignant neoplasm Social History Social History Smoking packs per day: 1 Smoking cigarettes per day: 20.0 Years smoked: 40 Smoking pack-years: 40.00 Smoking status: Former smoker Tobacco type: cigarettes Smoking end date: 05/16/20 Alcohol intake: never Substance use: never Substance use type: does not use Lack of Transportation: No Lack of Food: Never True Current Housing: I Have Housing Concerned About Future Housing: No Difficulty Paying Gas/Electric Bills: No Difficulty Paying for Meds: No Currently Unemployed: No Education: High School Diploma/GED Difficulty w/ Childcare or Family Care: No Living arrangements: with family Additional living arrangements comments: Occupation/Education: retired Gender identity (if verbalized by the patient): Male Sexual Orientation (if Verbalized by the Patient): Straight or Heterosexual Spiritual care concerns: No Meds Home Medications and Allergies Home Medications Medication Instructions Recorded Confirmed Type ozanimod 0.92 mg capsule (Zeposia) 0.92 mg PO HS 06/17/21 08/19/24 History finasteride 5 mg tablet 5 mg PO HS 04/11/23 08/19/24 History rosuvastatin 20 mg tablet 20 mg PO QHS #90 tabs 05/05/24 08/19/24 Rx lisinopril 40 mg tablet 40 mg PO DAILY #90 tabs 06/16/24 08/19/24 Rx pregabalin 150 mg capsule 150 mg PO BID 08/19/24 08/19/24 History Allergies Allergy/AdvReac Type Severity Reaction Status Date / Time gabapentin Allergy Intermediate Muscle Verified 08/19/24 12:00 Spasms Exam Const: General: no acute distress Resp: Effort & Inspection: normal respiratory effort GI: Inspection: non-distended GI Palp: No abdominal tenderness and No Guarding due to palpation present (GI) Auscultation: normal bowel sounds Assessment and Plan Assessment and plan (1) Prostate cancer: Code(s): C61 - Malignant neoplasm of prostate Status: Acute Assessment and Plan: * robotic assisted radical prostatectomy with bilateral pelvic lymphadenectomy
[2024-09-04] VITALS (18 sets, daily range): BP systolic 105–145; BP diastolic 47–96; PULSE 65–80; RESP 12–20; TEMP 36.1–36.8; O2SAT 88–99
--- NOTE | 2024-09-04 06:14 | WPDHPUPDATE1 ---
History and Physical Update Update Date/Time: 09/04/24 06:14 History and Physical has been reviewed, including an updated exam of the patient. There are NO changes in the patient's condition. Risks, benefits, and alternatives have been discussed and questions answered. Patient agrees to proceed with procedure.
[2024-09-04] MEDS: LACTATED RINGERS 1,000 ML 30 ML IV CONT ×3 (06:50→11:11)
--- NOTE | 2024-09-04 07:03 | WPDANESEPPF ---
Anes - Initial Pre Proc Eval Procedure: Operation Date: 09/04/24 07:30 Proposed Procedures p Robotic Assisted Laparoscopic Prostatectomy with Bilateral Pelvic Lymph Node Dissection - Serjio Juarez MD Date/Time: 09/04/24 07:03 Surgeon: Serjio Juarez MD Pre Op Diagnosis: prostate cancer Patient Data Age: 69 Gender: M Height: 1.8 m Weight: 86.5 kg Allergies Allergy/AdvReac Type Severity Reaction Status Date / Time gabapentin Allergy Intermediate Muscle Verified 09/04/24 07:03 Spasms Home Medications Medication Instructions Recorded Confirmed Type ozanimod 0.92 mg capsule (Zeposia) 0.92 mg PO HS 06/17/21 09/04/24 History finasteride 5 mg tablet 5 mg PO HS 04/11/23 09/04/24 History rosuvastatin 20 mg tablet 20 mg PO QHS #90 tabs 05/05/24 09/04/24 Rx lisinopril 40 mg tablet 40 mg PO DAILY #90 tabs 06/16/24 09/04/24 Rx pregabalin 150 mg capsule 150 mg PO BID 08/19/24 09/04/24 History Patient hx anesthesia problems: none Family hx anesthesia problems: none Results Review: All pre-operative results and documents have been reviewed as part of the pre-operative evaluation. [facility] Past Medical History Medical History Back pain Bilateral carpal tunnel syndrome BPH (benign prostatic hyperplasia) Chronic obstructive pulmonary disease Dyslipidemia Essential hypertension History of colon polyps History of tobacco abuse Hyperlipidemia Multiple sclerosis Prediabetes Pulmonary hypertension Skin cancer Surgical History Surgical History History of carpal tunnel release (~2001) left x2 - 2001, 08/2023 S/P cubital tunnel release (~2022) left x2 - 2001, 08/2023 Family History Family History Sibling Diabetes mellitus Hypertension Family history of throat cancer Mother Diabetes mellitus Cerebrovascular accident Family history of congestive heart failure Father Family history of alcoholism Cerebrovascular accident Sibling Heart transplanted, Onset Age: 58 2016 Other Family history of heart disease in male family member before age 55 Family history of hypercholesterolemia Family history of malignant neoplasm Social History Social History Smoking packs per day: 1 Smoking cigarettes per day: 20.0 Years smoked: 40 Smoking pack-years: 40.00 Smoking status: Former smoker Tobacco type: cigarettes Smoking end date: 05/16/20 Alcohol intake: never Substance use: never Substance use type: does not use Lack of Transportation: No Lack of Food: Never True Current Housing: I Have Housing Concerned About Future Housing: No Difficulty Paying Gas/Electric Bills: No Difficulty Paying for Meds: No Currently Unemployed: No Education: High School Diploma/GED Difficulty w/ Childcare or Family Care: No Living arrangements: with family Additional living arrangements comments: Occupation/Education: retired Gender identity (if verbalized by the patient): Male Sexual Orientation (if Verbalized by the Patient): Straight or Heterosexual Spiritual care concerns: No Anes - Eval Final PreProcedure Day of Procedure 09/04/24 07:03 Patient weight: overweight Heart: regular rate and rhythm Lungs: clear to auscultation Airway: Mallampati scale class II Neurological: alert and oriented Last oral intake: >/= 8 hours ASA classification: III Emergent: no Anesthetic plan: proceed Anesthesia type and monitoring: general ETT and standard monitoring Results Review: All pre-operative results and documents have been reviewed as part of the pre-operative evaluation. Informed Consent: The patient's anesthetic plan and its attendant risks and benefits were discussed with the patient/family/POA. Questions were solicited and answers provided to the satisfaction of the patient/family/POA.
[2024-09-04] MEDS: ceFAZolin 2 GM/D5W 50 ML 2 GM/50 ML BAG IVPB (07:30)
[2024-09-04] MEDS: fentaNYL CITRATE INJ (*CRX) 100 MCG/2 ML VIAL 25 MCG IV PUSH ×8 (10:28→10:51)
--- NOTE | 2024-09-04 10:39 | P.OP_ITS ---
Procedure Note - Detailed Date of Procedure 09/04/24 Pre-op Diagnosis Prostate cancer Post-op Diagnosis Same Procedure Performed Robotic assisted laparoscopic prostatectomy with bilateral pelvic lymphadenectomy Surgeon Serjio Juarez MD Anesthesia General Description of Procedure The patient was brought to the operative suite, where he was prepped and draped in routine sterile fashion while in a dorsal lithotomy, deep Trendelenburg position. A supraumbilical 10 mm trocar was placed after insufflation of the abdomen with a Veress needle. Three robotic ports were then placed under direct vision. Two of these were placed in the right lower quadrant - 10 cm and 20 cm lateral to, and in line with, the umbilicus. A third robotic trocar was placed 10 cm to the left of the umbilicus, and 20 cm to the left of the umbilicus, a 12 mm standard laparoscopic trocar was placed to be used as an visitor services information assistant port. Lastly, a 5 mm trocar was placed in the left upper quadrant midway between the umbilicus and the left robotic trocar. Attention was then turned to the prostatectomy. I opted for a posterior approa ch in this patient. An incision was made in the parietal peritoneum along the posterior bladder/posterior prostate about 2 cm above the reflection of the peritoneum over the anterior rectum. The seminal vesicles and vas deferens were immediately identified. Dissection is undertaken in a fashion so as to avoid electrocautery as much as possible, particularly near the tips of the seminal vesicles. Dissection was also carried out in the midline so as to avoid any encounters with the ureters. The vas deferens and the seminal vesicles were dissected in their entirety to the base of the prostate. The plane anterior to Denoviller's fascia, anterior to the rectum and posterior to the prostate was then developed. I then dropped the bladder by incising the anterior parietal peritoneum just lat eral to the median umbilical ligaments bilaterally. The bladder was dropped from the anterior abdominal and pelvic wall. The endopelvic fascia was identified and incised bilaterally, allowing for dissection of the posterior- lateral aspect of the prostate. The puboprostatic ligaments were transected near their origin from the posterior pubic ramus. This posterior lateral dissection of the prostate is also undertaken in a fashion so as to avoid electrocautery as much as possible. The dorsal vein of the penis is then secured with an 0 -Vicryl ligature. Attention is then turned to the bladder neck. The anterior bladder neck is incised at the vesico-prostatic junction. The previously placed urethral catheter was drawn through the urethrotomy. A very small bladder neck was maintained throughout the remainder of this dissection. The posterior bladder neck was incised in a fashion so as to avoid any injury to the ureteral orifices. Again, the small aperture of the bladder neck was maintained. The previously dissected vas deferens and the seminal vesicles were brought through the posterior bladder neck incision. The lateral prostatic pedicles were then carefully dissected from the lateral aspect of the prostate bilaterally. The prostatic pedicles were secured with Weck clips and transected. The neurovascular bundles were carefully dissected from the posterior-lateral aspect of the prostate. The dorsal vein of the penis was incised with electrocautery. Using cold scissors, the urethra was incised. After withdrawing the previously placed urethral catheter, the posterior urethra was sharply incised, as was the rectalurethralis muscle. Attention was then turned to an extended bilateral pelvic lymphadenectomy. The limits of this dissection were similar bilaterally. Specifically, the limits were the bifurcation of the common iliac vein proximally, the Ariel's ligament distally, the pevic floor posteriorly. the pelvic sidewall laterally and the anterior aspect to the external iliac artery laterally. This dissection was undertaken with care to avoid any injury to the obturator nerve. The prostate, seminal vesicles and pelvic nodes were then placed in a specimen bag. The pelvis was copiously irrigated with saline. Urethrovesical anastomosis was then undertaken using similar two 3-0 V-lock sutures across an 18-Serbian urethral catheter. The catheter was irrigated, and there was found to be no evidence of an irrigant extravasation. I opted not to place a pelvic drain. The robot is undocked, and the trocars were removed. The specimen was removed through the supraumbilical incision. The anterior rectus fascia at that suprapubic site was closed with a looped 0-PDS. Subcutaneous tissue was irrigated. Skin incisions were closed with 4-0 Vicryl subcuticular. Blood loss throughout this was 75cc. The patient tolerated the procedure well, was taken to recovery room in good condition. Drains Yes Pathology None sent Complications No immediate complications Condition Stable
[2024-09-04] MEDS: KETOROLAC 15 MG/ML VIAL (*BKC) IV PUSH (11:08)
[2024-09-04] MEDS: HYDROmorphone HCL INJ (*CRX) 1 MG/ML SYR 0.5 MG IV PUSH ×3 (11:29→12:04)
--- NOTE | 2024-09-04 11:55 | SUR.PHASEI ---
1145- Dr. Juarez making rounds at bedside in PACU. Orders to irrigate patient's dc catheter due to amount of urine output and concentration of urine. 1155- Dr. Juarez back to assess patient after irrigation of dc catheter. Per Dr. Juarez urine looks concentrated and adjust patient's LR infusion to 175mL's per hour for the floor.
--- NOTE | 2024-09-04 12:35 | ADMGEN ---
This patient, Gregor Yuan, was admitted to -. Patient/family oriented to hospital policies and general routines including ID bracelet, bed and alarms, visiting hours, pain management, procedures, bathroom and other care routines, personal items, smoking policy, room service/diet, and visiting hours. Information on how to activate the Rapid Response Team has been discussed. Patient/Family are encouraged to report perceived risks to care and to ask questions if they do not understand what they are told or what they should do.
[2024-09-04] MEDS: LACTATED RINGERS 1,000 ML 175 ML IV CONT ×2 (13:25→19:08)
--- NOTE | 2024-09-04 13:46 | PHAR ---
The patient's home med of Ozanimod [Zeposia] 0.92 mg capsule has been verified. Med bottle contains 1 capsule.
[2024-09-04] MEDS: DOCUSATE SODIUM 100 MG CAPSULE PO (16:51)
[2024-09-04] MEDS: PREGABALIN (*CRX) 75 MG CAPSULE 150 MG PO (16:51)
[2024-09-04] MEDS: ACETAMINOPHEN 325 MG TABLET 650 MG PO (17:03)
[2024-09-04] MEDS: HYDROcodone/acetaminophen (*CRX) 5-325 MG TABLET 1 TAB PO (21:56)
[2024-09-04] MEDS: [UNRECOGNIZED DRUG - OTHER] PO (21:57)
[2024-09-04] MEDS: ROSUVASTATIN 20 MG TABLET PO (21:57)
[2024-09-05 00:36] VITALS: BP 123/61; PULSE 68; RESP 18; TEMP 36.7; O2SAT 94
[2024-09-05] MEDS: LACTATED RINGERS 1,000 ML 175 ML IV CONT ×2 (01:04→08:30)
[2024-09-05] MEDS: ACETAMINOPHEN 325 MG TABLET 650 MG PO (01:07)
[2024-09-05 04:20] VITALS: BP 145/59; PULSE 63; RESP 20; TEMP 36.6; O2SAT 93
[2024-09-05] MEDS: HYDROcodone/acetaminophen (*CRX) 5-325 MG TABLET 1 TAB PO (05:28)
[2024-09-05] MEDS: HYOSCYAMINE SULFATE 0.125 MG TABLET SUBLINGUAL (05:28)
[2024-09-05 06:09] LABS: Hematocrit 40.6 % (42.0-52.0); Hemoglobin 13.1 g/dL (14.0-18.0)
[2024-09-05 06:24] LABS: Anion Gap 1 mmol/L (4-12); Blood Urea Nitrogen 16 mg/dL (9-20); Calcium 8.8 mg/dL (8.4-10.2); Carbon Dioxide 29 mmol/L (22-30); Chloride 106 mmol/L (98-107); Estimated CRCL calculation 83 ml/min; Estimated Glomerular Filt Rate > 60; Glucose 107 mg/dL (65-110); Potassium 4.1 mmol/L (3.4-5.0); Sodium 136 mmol/L (137-145)
--- NOTE | 2024-09-05 06:25 | WPDUROPN2 ---
Progress Note: A&P Assessment and Plan (1) Prostate cancer: Code(s): C61 - Malignant neoplasm of prostate Status: Acute Assessment and Plan: Doing well POD #1. Increase diet/ambulation this am. Likely home this afternoon. Subjective Subjective Date/Time Seen: 09/05/24 06:25 Interval history: Comfortable, slept well Review of Systems Cardiovascular: Cardiovascular: Denies chest pain, Denies lightheadedness, Denies palpitations and Denies dyspnea Respiratory: Respiratory: Denies dyspnea Gastrointestinal: Gastrointestinal: Denies diarrhea, Denies nausea and Denies vomiting Genitourinary: Genitourinary: Denies hematuria and Denies dysuria Endocrine: Endocrine: Denies palpitations Exam Const: General: no acute distress Resp: Effort & Inspection: normal respiratory effort GI: Inspection: non-distended and incision (clean and dry) GI Palp: No abdominal tenderness and No Guarding due to palpation present (GI) Auscultation: normal bowel sounds Objective Data Vital Signs Vital Signs: Vital Signs - 24 hr 09/04/24 10:28 09/04/24 10:38 09/04/24 10:50 Temperature 97.3 F L 97.2 F L Pulse Rate 77 68 79 Respiratory Rate 16 12 18 Blood Pressure 108/72 133/91 H 120/77 Pulse Oximetry 99 94 93 Oxygen Delivery Room Air Room Air Room Air 09/04/24 11:05 09/04/24 11:20 09/04/24 11:30 Temperature Pulse Rate 67 67 74 Respiratory Rate 15 12 15 Blood Pressure 123/80 134/84 117/81 Pulse Oximetry 97 95 97 Oxygen Delivery Room Air Room Air Room Air 09/04/24 11:45 09/04/24 12:00 09/04/24 12:15 Temperature 97.0 F L Pulse Rate 76 70 69 Respiratory Rate 15 15 16 Blood Pressure 129/75 127/79 118/79 Pulse Oximetry 99 99 98 Oxygen Delivery Room Air Room Air Room Air 09/04/24 12:25 09/04/24 12:28 09/04/24 12:43 Temperature 97.6 F 97.8 F Pulse Rate 74 73 79 Respiratory Rate 16 20 20 Blood Pressure 118/79 117/96 H 105/47 L Pulse Oximetry 99 96 94 Oxygen Delivery Room Air 09/04/24 13:13 09/04/24 14:13 09/04/24 12:35 Temperature 97.9 F 98.2 F Pulse Rate 74 75 Respiratory Rate 20 20 Blood Pressure 110/68 125/70 Pulse Oximetry 96 94 96 Oxygen Delivery Room Air 09/04/24 18:13 09/04/24 21:12 09/04/24 20:00 Temperature 98.1 F 97.5 F L Pulse Rate 80 69 Respiratory Rate 20 18 Blood Pressure 116/60 124/58 L Pulse Oximetry 88 L 96 Oxygen Delivery Room Air 09/05/24 00:36 09/05/24 04:20 Temperature 98.1 F 97.8 F Pulse Rate 68 63 Respiratory Rate 18 20 Blood Pressure 123/61 145/59 H Pulse Oximetry 94 93 Oxygen Delivery Intake/Output Intake/Output: Intake & Output 09/02/24 09/03/24 09/04/24 09/05/24 23:59 23:59 23:59 23:59 Intake Total 2590 1664 Output Total 550 900 Balance 2040 764 Meds/Results Medications: Active Medications Generic Name Dose Route Start Last Admin Trade Name Freq PRN Reason Stop Dose Admin Acetaminophen 650 mg 09/04/24 16:49 09/05/24 01:07 Acetaminophen 325 Mg Tablet PO 650 mg Q4H PRN Administration Mild Pain (1-3) or Fever Hydrocodone Bitart/Acetaminophen 1 tab 09/04/24 16:48 09/05/24 05:28 Hydrocodone/Acetaminophen (*Crx) 5-325 Mg Tablet PO 1 tab Q4H PRN Administration Pain Rated 6 or Greater Docusate Sodium 100 mg 09/04/24 17:00 09/04/24 16:51 Docusate Sodium 100 Mg Capsule PO 100 mg BID JACINTA Administration Hyoscyamine 0.125 mg 09/04/24 12:28 09/05/24 05:28 Hyoscyamine Sulfate 0.125 Mg Tablet SUBLINGUAL 0.125 mg Q4H PRN Administration Bladder Spasm Lactated Ringer's 1,000 mls @ 175 mls/hr 09/04/24 12:28 09/05/24 01:04 Lr - Lactated Ringers Iv IV CONT 175 mls/hr .[id number] JACINTA Administration Ketorolac Tromethamine 15 mg 09/04/24 12:28 Ketorolac 15 Mg/Ml Vial (*Bkc) IV PUSH 09/05/24 12:27 Q6H PRN Pain Rated 4-6 Levofloxacin 500 mg 09/05/24 09:00 Levofloxacin 500 Mg Tablet PO DAILY [facility] Lisinopril 40 mg 09/05/24 09:00 Lisinopril 20 Mg Tablet PO DAILY [facility] Morphine Sulfate 2 mg 09/04/24 12:28 Morphine Sulfate (*Crx) 2 Mg/Ml Inj IV PUSH Q2H PRN Pain Rated 7-10 Naloxone HCl 0.1 mg 09/04/24 12:28 Naloxone Hcl 0.4 Mg/Ml Vial IV PUSH Q2M PRN Opiate Reversal Non-Formulary Medication 0 mg 09/04/24 21:00 09/04/24 21:57 Ozanimod [Zeposia] PO 10/04/24 20:59 0.92 mg HS [facility] Administration Ondansetron HCl 4 mg 09/04/24 12:28 Ondansetron Inj 4 Mg/2 Ml Vial IV PUSH Q6H PRN Nausea And Vomiting Pregabalin 150 mg 09/04/24 17:00 09/04/24 16:51 Pregabalin (*Crx) 75 Mg Capsule PO 150 mg BID JACINTA Administration Rosuvastatin Calcium 20 mg 09/04/24 21:00 09/04/24 21:57 Rosuvastatin 20 Mg Tablet PO 20 mg QHS JACINTA Administration Labs Labs: Laboratory Results - last 24 hr 09/04/24 09/05/24 06:43 05:48 Hgb 13.1 L Hct 40.6 L Sodium 136 L Potassium 4.1 Chloride 106 Carbon Dioxide 29 Anion Gap 1 L BUN 16 Creatinine 0.80 Estim Creat Clear Calc 83 Estimated GFR > 60 Glucose 107 Calcium 8.8 Blood Type A Positive Antibody Screen Negative
[2024-09-05] MEDS: PREGABALIN (*CRX) 75 MG CAPSULE 150 MG PO (08:27)
[2024-09-05] MEDS: levoFLOXacin 500 MG TABLET PO (08:27)
[2024-09-05] MEDS: lisinopriL 20 MG TABLET 40 MG PO (08:27)
[2024-09-05] MEDS: DOCUSATE SODIUM 100 MG CAPSULE PO (08:27)
[2024-09-05 10:13] VITALS: BP 146/71; PULSE 57; RESP 18; TEMP 36.4; O2SAT 97
--- NOTE | 2024-09-05 12:15 | PM.DS ---
DS: Admitting Diagnosis Discharge Date 09/05/2024 Admitting Diagnosis Prostate cancer DS: Summary Hospital Course Hospital Course: This patient was admitted on the morning of his planned robotic prostatectomy. This procedure was uneventful, as was his postoperative course. By the evening of the procedure he was sitting at the bedside in tolerating a liquid diet. The following morning he was ambulating freely and tolerating regular food. His catheter drainage remained essentially clear throughout. His postoperative hemoglobin and serum creatinine were unremarkable. At the time of discharge he has been instructed in appropriate care for his Jensen catheter with both a leg bag and bedside bag. He will be discharged with plans to follow-up in 1 week with a cystogram. Time Spent with Patient Time attestation: Total time spent providing and/or coordinating discharge services: DS: Data Data Completed and Pending Pending studies at discharge: Pending at discharge 09/04/24 10:11 Surgical [PTH] Routine Labs on day of discharge: Labs from last 24 hours 09/05/24 05:48 Hgb 13.1 L Hct 40.6 L Sodium 136 L Potassium 4.1 Chloride 106 Carbon Dioxide 29 Anion Gap 1 L BUN 16 Creatinine 0.80 Estim Creat Clear Calc 83 Estimated GFR > 60 Glucose 107 Calcium 8.8 Discharge Plan Discharge Attending physician on discharge: Serjio Juarez Discharging Clinician: Serjio Juarez Patient Disposition: Home, Self-Care Activity: other - see discharge instructions Diet: other - see discharge instructions Wound Care Instructions: other - see discharge instructions Discharge Instructions: 1) Jensen catheter -> leg bag / bedside bag at night. 2) No lifting/straining >15lbs. x3 weeks. 3) No driving x1-week. 4) Resume normal, pre-operative diet. 5) My office will contact regarding follow-up in 1-week with cystogram. Patient Instructions: Antibiotic Form Stand Alone Forms: General Discharge Information Follow-up/Referrals: Serjio Juarez MD [Physician] - Discharge Medications: New hydrocodone-acetaminophen 5-325 mg tablet 1 - 2 tablet PO Q6H PRN (Reason: pain) Qty: 24 0RF docusate sodium [Colace] 100 mg capsule 100 mg PO DAILY Qty: 30 0RF ciprofloxacin HCl 500 mg tablet 500 mg PO Q12H Qty: 10 0RF hyoscyamine sulfate 0.125 mg tablet 0.125 mg PO Q6H PRN (Reason: bladder spasms) Qty: 20 2RF Continued Zeposia 0.92 mg capsule 0.92 mg PO HS pregabalin 150 mg capsule 150 mg PO BID rosuvastatin 20 mg tablet 20 mg PO QHS Qty: 90 1RF lisinopril 40 mg tablet 40 mg PO DAILY Qty: 90 1RF Discontinued finasteride 5 mg tablet 5 mg PO HS Date of admission: 09/04/24 09:49 Primary Care Provider: Poppy Whitfield Admitting Provider: Serjio Juarez Attending physician on admission: Serjio Juarez Condition: Stable
--- NOTE | 2024-09-05 14:01 | WPDANESPN ---
Anes - Prog Note Post-Op Date/Time: 09/05/24 14:01 Cardiovascular status: normal Respiratory status: normal Airway patency: baseline Mental status: baseline Post-Op hydration status: normal Vital Signs: Last Vital Signs Temp 97.6 F 09/05/24 10:13 Pulse 57 L 09/05/24 10:13 Resp 18 09/05/24 10:13 BP 146/71 H 09/05/24 10:13 Pulse Ox 97 09/05/24 10:13 O2 Del Method Room Air 09/05/24 08:25 Pain Score (VAS): 0/10 I/O: Intake & Output 09/04/24 09/05/24 09/05/24 23:59 07:59 15:59 Intake Total 1240 1664 1480 Output Total 500 900 850 Balance 740 764 630 Laboratory Tests 09/05/24 05:48 09/05/24 05:48 09/05/24 05:48 Hgb 13.1 L Hct 40.6 L Sodium 136 L Potassium 4.1 Chloride 106 Carbon Dioxide 29 Anion Gap 1 L BUN 16 Creatinine 0.80 Estim Creat Clear Calc 83 Estimated GFR > 60 Glucose 107 Calcium 8.8 Post-procedural complaints: none Patient Feedback: Patient satisfied with anesthetic care.
== END 2024-09-05 13:08 | disposition home or self-care (01) | DRG 708 ==
LOC: ANH3MEDSUR 12:52
PROVIDERS: Admitting Provider Urology; PCP Family Medicine; Visit Provider Urology
PROC: 0VT04ZZ Resection of Prostate, Percutaneous Endoscopic Approach (ICD-10-PCS; CPT 55867; principal; 2024-09-04 07:30)
DX: C61 Malignant neoplasm of prostate (principal); N40.0 Benign prostatic hyperplasia without lower urinary tract symptoms; J44.9 Chronic obstructive pulmonary disease, unspecified; E78.5 Hyperlipidemia, unspecified; I10 Essential (primary) hypertension; G35 Multiple sclerosis; Z85.828 Personal history of other malignant neoplasm of skin
CPT/HCPCS: 36415; 71271; 80048; 85014; 85018; 86850; 86900; 86901; 88305; 88309; A9270; J0690; J1100; J1171; J1885; J2405; J2704; J3010; J7120

== ENCOUNTER 2024-09-11 11:20 | Outpatient (CLI) | payer MEDICARE, OTHER, SELFPAY ==
--- NOTE | ~2024-09-11 | XR_ITS ---
EXAMINATION: CYSTOGRAM DATE: 09/11/2024 11:56 INDICATION: Prostate cancer post prostatectomy TECHNIQUE: 2 initial live in housekeeper nanny radiographs of the pelvis was performed. There was retrograde administrat ion of Omnipaque 350 mixed with saline contrast into patient's existing Jensen catheter. Fluoroscopic images of the pelvis were obtained. A post-void image was also performed. A total of 17 fluoroscopic images were recorded. Fluoroscopy exposure time was 0.3 minutes. Total DAP was 15.96 Gycm^2 FINDINGS: Aged Or Disabled Care Worker images demonstrate severe facet osteoarthritis at L5-S1. Contrast fills the bladder which demon strates a normal contour and smooth mucosal surface. No evident extraluminal contrast extravasation. IMPRESSION: 1. No evident bladder leak. Reviewed, dictated and finalized at location A. ERCIAL COUNSEL IMPRESSION: 1. No evident bladder leak.
== END 2024-09-11 11:21 | disposition home or self-care (01) ==
PROVIDERS: PCP Family Medicine; Visit Provider Radiology Diagnostic Radiology
DX: C61 Malignant neoplasm of prostate (principal)
CPT/HCPCS: 51600; 74430; Q9967

== ENCOUNTER 2024-12-12 08:46 | Outpatient (CLI) | payer MEDICARE, OTHER, SELFPAY ==
--- OUTSIDE RECORDS SUMMARY | 2024-12-12 09:21 | XMS_ITS | Patient Health Record ---
Author Organization [facility] Address [address] [place] [address] Care Team Providers Care Sales Assistant Name Role Phone Misael Whitfield Primary Care Provider Dr. Ermias Doty Unavailable [phone] Rosalio Floyd Unavailable Unavailable [facility], Provider Unavailable Unavailab le Allergies Allergen (clinical drug ingredient) Drug/Non Drug Allergy documented on EMR Reaction Allergy Type Onset Date Status gabapentin Gabapentin Unknown Drug Allergy Activ e Reason For Referral Reason Referral for evaluat ion and care Diagnosis 1 Multiple sclerosis ( G35) Referral Organization [facility] Referring Provider First Name Ermias Referring Provider Last Name Enedelia Referring Provider Speciality Neurology Referral Priority Routine Medications Medication SIG (Take, Route, Frequency, Duration) Notes Start Date End Date Status Finasteride 5 MG 1 tab(s) orally once a day Active Pregabalin 225 MG 1 cap(s) orally 2 ti mes a day for 30 days 03/06/2024 Active Zeposia 0.92 MG 1 cap(s) orally once a day Active Rosuvastatin Calcium 20 MG 1 tab(s) oral ly once a day Active Lisinopril 40 MG 1 tab(s) orally once a day Active Problems Problem Type SNOMED Code ICD Code Onset Dates Problem Status W/U Status Risk Notes Problem Multiple sclerosis (22040170) Multiple sclerosis (G35) Active confirmed Problem Chronic migraine without aura, non-refractory (disorder) (542828698486415) Migraine without aura, not intractable, without status migrainosus (G43.009) Active confirmed Problem Migraine with aura (4486211) Migraine with aura, not intractable, without status migrainosus (G43.109) Active confirmed Problem Chronic migraine without aura, non-intractable (579510602833579) Chronic migraine without aura, not intractable, without status migrainosus (G43.709) Active confirmed Problem Degeneration of cervical intervertebral disc (96268910) Other cervical disc degeneration, unspecified cervical region (M50.30) Active confirmed Problem Neuralgia (39316940) Neuralgia and neuritis, unspecified (M79.2) Active confirmed Problem Paresthesia (finding) (88491803) Paresthesia of skin (R20.2) Active confirmed Problem Spasm (56552640) Cramp and spasm (R25.2) Active confirmed Problem Abnormal gait (81096380) Other abnormalities of gait and mobility (R26.89) Active confirmed Vital Signs Respiratory Rate 16 /min 03/06/2024 Oximetry 99 % 03/06/2024 Blood pressure diastolic 83 mm Hg 03/06/2024 Height 58 in 03/06/2024 Blood pressure systolic 153 mm Hg 03/06/2024 Weight 192.4 lbs 03/06/2024 BMI 40.21 kg/m2 03/06/2024 Encounters Encounter Location Date Provider Diagnosis [address] [address] 03/15/2024 Provider [facility] Neuralgia and neuritis, unspecified M79.2 [facility] [employer] [address] [place] [phone] 03/06/2024 Ermias Mcdaniels Multiple sclerosis G35 ; Cramp and spasm R25.2 ; Paresthesia of skin R20.2 ; Other abnormalities of gait and mobility R26.89 ; Neuralgia and neuritis, unspecified M79.2 ; Other cervical disc degeneration, unspecified cervical region M50.30 and Spinal stenosis, cervical region M48.02 [place] [address] [employer] [address] [place] [phone] 03/20/2024 Ermias Mcdaniels Multiple sclerosis G35 [address] [address] 03/06/2024 Ermias Mcdaniels Neuralgia and neuritis, unspecified M79.[address] [address] 03/31/2024 Ermias Mcdaniels Assessments Encounter Date Diagnosis (ICD Code) Assessment Notes Treatment Notes Treatment Clinical Notes Section Notes 03/06/2024 Multiple sclerosis (ICD-10 - G35) For now continue ozanimod. Supplement Vit D (D3) 5000 IU daily. I need all of his prior medical records and imaging reports. His history sounds more suggestive of progressive MS or progressive-relaps ing MS rather than a classic relapsing-remittin g MS as he relayed it to me. I would like to acquire and review all of his prior medical records and imaging reports to understand his course better. He also has degenerative cervical spinal stenosis, to my review more moderate range rather than severe and I don't think that this is contributing to neurological symptoms 03/06/2024 Cramp and spasm (ICD-10 - R25.2) His history joseph nds more suggestive of progressive MS or progressive-relaps ing MS rather than a classic relapsing-remittin g MS as he relayed it to me. I would like to acquire and review all of his prior medical records and imaging reports to understand his course better. He also has degenerative cervical spinal stenosis, to my review more moderate range rather than severe and I don't think that this is contributing to neurological symptoms 03/06/2024 Neuralgia and neuritis, unspecified (ICD-10 - M79.2) 03/15/2024 Neuralgia and neuritis, unspecified (ICD-10 - M79.2) 03/20/2024 Multiple sclerosis (ICD-10 - G35) Referral to [facility]. I recommended evaluation and care by a dedicated MS specialist as I feel that his case is atypical and have question about whether he has a progressive form of MS. Continue Zeposia for now until evaluated. Recommended Vit D supplementation 03/06/2024 Paresthesia of skin (ICD-10 - R20.2) His history soun ds more suggestive of progressive MS or progressive-relaps ing MS rather than a classic relapsing-remittin g MS as he relayed it to me. I would like to acquire and review all of his prior medical records and imaging reports to understand his course better. He also has degenerative cervical spinal stenosis, to my review more moderate range rather than severe and I don't think that this is contributing to neurological symptoms 03/06/2024 Other abnormalities of gait and mobility (ICD-10 - R26.89) His history soun ds more suggestive of progressive MS or progressive-relaps ing MS rather than a classic relapsing-remittin g MS as he relayed it to me. I would like to acquire and review all of his prior medical records and imaging reports to understand his course better. He also has degenerative cervical spinal stenosis, to my review more moderate range rather than severe and I don't think that this is contributing to neurological symptoms 03/06/2024 Neuralgia and neuritis, unspecified (ICD-10 - M79.2) Increase pregabalin to 150 mg bid. His history sounds more suggestive of progressive MS or progressive-relaps ing MS rather than a classic relapsing-remittin g MS as he relayed it to me. I would like to acquire and review all of his prior medical records and imaging reports to understand his course better. He also has degenerative cervical spinal stenosis, to my review more moderate range rather than severe and I don't think that this is contributing to neurological symptoms 03/06/2024 Other cervical disc degeneration, unspecified cervical region (ICD-10 - M50.30) His history soun ds more suggestive of progressive MS or progressive-relaps ing MS rather than a classic relapsing-remittin g MS as he relayed it to me. I would like to acquire and review all of his prior medical records and imaging reports to understand his course better. He also has degenerative cervical spinal stenosis, to my review more moderate range rather than severe and I don't think that this is contributing to neurological symptoms 03/06/2024 Spinal stenosis, cervical region (ICD-10 - M48.02) His history soun ds more suggestive of progressive MS or progressive-relaps ing MS rather than a classic relapsing-remittin g MS as he relayed it to me. I would like to acquire and review all of his prior medical records and imaging reports to understand his course better. He also has degenerative cervical spinal stenosis, to my review more moderate range rather than severe and I don't think that this is contributing to neurological symptoms Plan Of Treatment No Information Insurance Providers Payer Name Payer Address Payer Phone Subscriber Number Group Number Insured Name Patient Relationship to Insured Coverage Start Date Coverage End Date [employer] [facility] (Medicare) Attention Claims [address] [facility] [address] [id number] Gregor Yuan Self - patient is the insured [address] [place] [address] [id number] Gregor Yuan Self - patient is the insured 2 Medical (General) History Medical History History ICD Code HTN HLD MS Cervical DDD CTS BPH COPD Surgical History Surgery Date(Month/Year) L carpal tunnel release
--- OUTSIDE RECORDS SUMMARY | 2024-12-12 09:22 | XMS_ITS | Referral Summary ---
Author Organization [facility] [address] [facility] [address] Address [address] [place] [address] Care Team Providers Care Platform Attendant Name Role Phone Juan Whitfield MD Primary Care Provider Allergies Active Allergy Reactions Criticality Noted Date Comments Gabapentin Unknown,Other (See comments) Low 11/13/2019 Muscle Spasms cramps Medications rosuvastatin (CRESTOR) 20 mg tablet TK 1 T PO D 1 04/17/2018 Active omega-3 fatty acids 1,000 mg capsule Take by mouth daily. Active pregabalin (LYRICA) 150 mg capsule Take 1 capsule (150 mg total) by mouth 2 (two) times a day Active lisinopriL (PRINIVIL,ZESTR [place]) 40 mg tablet TAKE 1 TABLET ORALLY DAILY Active finasteride (PROSCAR) 5 mg tablet Take 1 tablet (5 mg total) by mouth daily Active Active Problems Problem Noted Date Diagnosed Date Elevated PSA 12/29/2021 BPH with obstruction/lower urinary tract symptom s 12/29/2021 Hypertensive disorder 09/11/2018 Hyperlipidemia 09/11/2018 Immunizations Immunization Administration Dates Next Due Tdap 01/20/2019 ZOSTER Recombinant 11/08/2021,08/02/2021 Social History Tobacco Use Types Packs/Day Years Used Date Smoking Tobacco: Former Cigarettes Smokeless Tobacco: Never Tobacco Cessation:Counseling Given: Not Answered Comments:2019 Alcohol Use Standard Drinks/Week Comments No 0 (1 standard drink = 0.6 oz pur e alcohol) Personal Safety Answer Date Recorded Getting School Help Needed Not on file 12/15 Sex and Gender Information Value Date Recorded Sex Assigned at Not on file Legal Sex Male 10:54 AM CDT Gender Identity Not on file Sexual Orientation Not on file Last Filed Vital Signs Vital Sign Reading Time Taken Comments Blood Pressure 124/76 05/29/2024 9:03 AM CDT Pulse 59 05/29/2024 9:03 AM CDT Temperature 36.1 C (97 F) 04/16/2014 2:45 PM CDT Respiratory Rate - - Oxygen Saturation 98% 08/14/2018 10:59 AM COMMUNITY NURSE Inhaled Oxygen Concentration - - Weight 86.7 kg (191 lb 3.2 oz) 05/29/2024 9:03 A M CDT Height 180.3 cm (5' 11 ) 05/29/2024 9:03 AM CDT Body Mass Index 26.67 05/29/2024 9:03 AM CDT Plan of Treatment Not on file Insurance CHOICE [place] [employer] [place] MEDICARE [employer] [place] Care Teams Platform Attendant Relationship Specialty Start Date End Date Juan Whitfield MD [address] [facility] [address] [address] [address] [address] [place] [address] PCP - General Family Practice 07/16/24
--- OUTSIDE RECORDS SUMMARY | 2024-12-12 09:22 | XMS_ITS | Clinical Summary ---
Author Organization [facility] [address] Address [address] [place] [address] Care Team Providers Care Financial Services Rep Name Role Phone Juan Whitfield MD Primary [...] Next Due Tdap 01/20/2019 ZOSTER Recombinant 11/08/2021,08/02/2021 Surgical History Surgery Date Site/Laterality Comments CARPAL TUNNEL RELEASE Medical History Medical History Date Comments Hypertension Heart murmur Hyperlipidemia Sinusitis Diabetes mellitus (HCC) Dizziness Diverticulitis Skin cancer Pneumonia COPD (chronic obstructive pulmonary disease) (HC C) Emphysema (subcutaneous) (surgical) resulting fr om a procedure Family History Medical History Relation Name Comments Cancer Father Heart disease Mother Cancer Sister Relation Name Status Comments Brother Father Mother Alive Sister Social History Tobacco Use Types Packs/Day Years [...] on file Sexual Orientation Not on file Obstetrics History Last Filed Vital Signs Vital Sign Reading Time Taken Comments Blood Pressure 124/76 05/29/2024 9:03 AM CDT Pulse 59 05/29/2024 9:03 AM CDT Temperature 36.1 C (97 F) 04/16/2014 2:45 PM CDT Respiratory Rate - - Oxygen Saturation 98% 08/14/2018 10:59 AM LENS MAKER Inhaled Oxygen Concentration - - Weight 86.7 kg (191 lb 3.2 oz) 05/29/2024 9:03 A M CDT Height 180.3 cm (5' 11 ) 05/29/2024 9:03 AM CDT Body Mass Index 26.67 05/29/2024 9:03 AM CDT Plan of Treatment Health Maintenance Due Date Last Done Comments Colon Cancer Screening-Colonoscopy 1957 Depression Screening 1957 Fall Risk Assessment 1957 Hepatitis C Screening 1957 Prostate Cancer Screening-PSA 1957 Hepatitis B Screening 1975 Pneumococcal vaccine 65+ (1 of 1 - PCV) 2007 Abdominal Aortic Aneurysm (A AA) Screen 2022 Well Visit 65+ 2022 Covid-19 Vaccine ( - 2023- season) 2024 08/02/2021, 12/25/2020, 12/02/2020 Influenza Vaccine (#1) 2024 DTaP/Tdap/Td Vaccine (2 - Td or Tdap) 01/20/2029 Zoster Vaccine Completed 11/08/2021, 08/02/2021 Insurance [place] [facility] MEDICARE [facility] [place] [address] Care Teams Financial Services Rep Relationship Specialty Start Date End Date Juan Whitfield MD [address] [place] [address] PCP - General Family Practice 07/16/24
--- OUTSIDE RECORDS SUMMARY | 2024-12-12 09:22 | XMS_ITS | Referral Summary ---
Author Organization [facility] Address [address] [place] [address] Care Team Providers Care Shovel Logger Name Role Phone Juan Whitfield MD Primary Care Provider Source Comments [facility],non-owned Affiliates and Associated Physician Practices is amultiple site organization consisting of ambulatory clinics and hospital sitesin [place], [place], [place] and [place]. This disclosure is being madepursuant to the Care Everywhere program and may not contain all information available regarding this patient. Last updated 18.[facility] Encounters Date Type Department Care Team Description 12/03/2024 10:20 AM SYNCHRONIZER Office Visit [facility] Neurosciences [address] [place] [phone] Rosalio Floyd MD Multiple sclerosis (HCC) (Primary Dx); Cervical radiculopathy; Numbness and tingling of right arm; Hypovitaminosis D from Last 3 Months Allergies Active Allergy Reactions Criticality Noted Date Comments Gabapentin Other 11/13/2019 cramps Medications * Be aware that medications may not be up to date on this document. Alwaysverify current medications with the patient. Medication Sig Dispensed Refills Start Date End Date Status rosuvastatin (CRESTOR) 20 MG tablet Take 1 (one) tablet by mouth once daily 03/10/2019 Active lisinopril (PRINIVIL; ZESTRIL) 40 MG tablet Take 1 (one) tablet by mouth once daily 05/23/2021 Active ZEPOSIA 0.92 MG CAPS TAKE 1 CAPSULE (0.92MG) BY MOUTH ONCE DAILY 30 capsule 11 03/06/2022 Active vibegron (Gemtesa) 75 MG tablet Take 1 (one) tablet by mouth once daily Active [place]-3 Fatty Acids (OMEGA 3 PO) Active ergocalciferol (Drisdol) 200 MCG (8000 UNITS)/ML drops Take 1.5 mL by mouth once daily Active VITAMIN A PO Active pregabalin (Lyrica) 75 MG capsuleIndicatio ns:Numbness and tingling of right arm Take 2 (two) capsules by mouth 2 times daily 120 capsule 4 12/03/2024 Active amLODIPine (NORVASC) 10 MG tablet Take 10 mg by mouth once daily 05/01/2018 12/03/2024 Discontinued (Tx Complete) lisinopril (PRINIVIL; ZESTRIL) 10 MG tablet Take 1 (one) tablet by mouth once daily 11/14/2018 12/03/2024 Discontinued (Tx Complete) finasteride (Proscar) 5 MG tablet Take 1 (one) tablet by mouth once daily 12/21/2022 12/03/2024 Discontinued (Tx Complete) pregabalin (Lyrica) 75 MG capsule Take 1 (one) capsule by mouth 2 times daily 60 capsule 4 09/14/2023 12/03/2024 Discontinued (Reorder) Social History Tobacco Use Types Packs/Day Years Used Date Smoking Tobacco: Every Day Cigarettes 0.8 40 Smokeless Tobacco: Never Tobacco Cessation:Ready to Q uit: Not Asked; Counseling Given: Not Answered Alcohol Use Standard Drinks/Week Comments Never 0 (1 standard drink = 0.6 oz pur e alcohol) AUDIT-C Answer Date Recorded Frequency of Alcohol Consumption Never 10/21/2019 Average Number of Drinks Not on file 020 Frequency of Binge Drinking Not on file 10/02 Sex and Gender Information Value Date Recorded Sex Assigned at Not on file Gender Identity Not on file Sexual Orientation Not on file Last Filed Vital Signs Vital Sign Reading Time Taken Comments Blood Pressure 140/80 03/22/2023 9:51 AM CDT Pulse 73 12/03/2024 10:06 AM SYNCHRONIZER Temperature 37 C (98.6 F) 03/22/2023 9:51 AM CDT Respiratory Rate 16 12/03/2024 10:06 AM SYNCHRONIZER Oxygen Saturation 98% 12/03/2024 10:06 AM SYNCHRONIZER Inhaled Oxygen Concentration - - Weight 81.6 kg (180 lb) 12/03/2024 10:06 AM SYNCHRONIZER Height 180.3 cm (5' 11 ) 12/03/2024 10:06 AM SYNCHRONIZER Body Mass Index 25.1 12/03/2024 10:06 AM SYNCHRONIZER Plan of Treatment Upcoming Encounters Date Type Department Care Team (Late st Contact Info) Description 03/05/2025 10:00 AM CDT Office Visit Pending sale to [facility] [address] [facility] [address] [place] [phone] [place] [address] [address] [facility] [address] [place] [address] Procedures Procedure Name Priority Date/Time Associated Diagnosis Comments COMPREHENSIVE METABOLIC PANEL Routine 01/18/2023 10:56 AM CDT Multiple sclerosis (HCC) from Last 3 Months or Most Recently Relevant to Health Maintenance Results * (ABNORMAL) COMPREHENSIVE METABOLIC PANEL (01/18/2023 10:56 AM CDT) Glucose 108(H) 70 - 99 mg/dL [facility] ACCOUNT BILL BUN 10 8 - 27 mg/dL [facility] ACCOUNT BILL Creatinine 0.81 0.76 - 1.27 mg/dL [facility] ACCOUNT BILL eGFR by CKD-EPI 98 >59 mL/min/1.7 3 [facility] ACCOUNT BILL BUN/Creatinine Ratio 12 10 - 24 [facility] ACCOUNT BILL Sodium 141 134 - 144 mmol/L [facility] ACCOUNT BILL Potassium 4.6 3.5 - 5.2 mmol/L [facility] ACCOUNT BILL Chloride 104 96 - 106 mmol/L [facility] ACCOUNT BILL CO2 21 20 - 29 mmol/L [facility] ACCOUNT BILL Calcium 9.8 8.6 - 10.2 mg/dL [facility] ACCOUNT BILL Protein Total 6.6 6.0 - 8.5 g/dL [facility] ACCOUNT BILL Albumin 4.2 3.8 - 4.8 g/dL [facility] ACCOUNT BILL Globulin Total 2.4 1.5 - 4.5 g/dL [facility] ACCOUNT BILL Albumin/Globulin Ratio 1.8 1.2 - 2.2 [facility] ACCOUNT BILL Bilirubin Total 0.6 0.0 - 1.2 mg/dL [facility] ACCOUNT BILL Alkaline Phosphatase 131(H) 44 - 121 IU/L [facility] ACCOUNT BILL AST 28 0 - 40 IU/L [facility] ACCOUNT BILL ALT 57(H) 0 - 44 IU/L [facility] ACCOUNT BILL Comment:FASTING Blood BLOOD SPECIMEN / Unknown 01/18/2023 10:56 AM CDT 01/18/2023 Narrative Resulting Agency Comment Lab Testing performed at: [facility] [place] [address] [facility] [id number] Christel Hull MACHINIST [facility] - CHEMISTRY ORDERABLES [facility] ACCOUNT BILL [address] [place] [address] from Last 3 Months or Most Recently Relevant to Health Maintenance Care Teams Shovel Logger Relationship Specialty Start Date End Date Juan Whitfield MD [address] [place] [address] PCP - General 12/07/22
--- OUTSIDE RECORDS SUMMARY | 2024-12-12 09:22 | XMS_ITS | Patient Health Summary ---
Author Organization [facility] Address [address] [place] [address] Care Team Providers Care News Correspondent Name Role Phone Juan Whitfield MD Primary Care Provider Note from [facility],non-owned Affiliates and Associated Physician Practices is amultiple site organization consisting of ambulatory clinics and hospital sitesin [place], [place], [place] and [place]. This disclosure is being madepursuant to the Care Everywhere program and may not contain all information available regarding this patient. Last updated 18.[facility] Allergies * Gabapentin(Other) Medications * Be aware that medications may not be up to date on this document. Alwaysverify current medications with the patient. * rosuvastatin (CRESTOR) 20 MG tablet(Started 03/10/2019) Take 1 (one) tablet by mouth once daily * lisinopril (PRINIVIL; ZESTRIL) 40 MG tablet(Started 05/23/2021) Take 1 (one) tablet by mouth once daily * ZEPOSIA 0.92 MG CAPS(Started 03/06/2022) TAKE 1 CAPSULE (0.92MG) BY MOUTH ONCE DAILY 11 refills by 03/06/2023 * vibegron (Gemtesa) 75 MG tablet Take 1 (one) tablet by mouth once daily * [place]-3 Fatty Acids (OMEGA 3 PO) * ergocalciferol (Drisdol) 200 MCG (8000 UNITS)/ML drops Take 1.5 mL by mouth once daily * VITAMIN A PO * pregabalin (Lyrica) 75 MG capsule(Started 12/03/2024) Take 2 (two) capsules by mouth 2 times daily 4 refills by 06/01/2025 Ended Medications* amLODIPine (NORVASC) 10 MG tablet(Started 05/01/2018) (Discontinued) Take 10 mg by mouth once daily * lisinopril (PRINIVIL; ZESTRIL) 10 MG tablet(Started 11/14/2018)(Discontinued) Take 1 (one) tablet by mouth once daily * finasteride (Proscar) 5 MG tablet(Started 12/21/2022)(Discontinued) Take 1 (one) tablet by mouth once daily * pregabalin (Lyrica) 75 MG capsule(Started 09/14/2023)(Discontinued) Take 1 (one) capsule by mouth 2 times daily 4 refills by 03/12/2024 Social History Tobacco Use Types Packs/Day Years [...] AM CDT Pulse 73 12/03/2024 10:06 AM ENVIRONMENTAL FIELD OFFICE MANAGER Temperature 37 C (98.6 F) 03/22/2023 9:51 AM CDT Respiratory Rate 16 12/03/2024 10:06 AM ENVIRONMENTAL FIELD OFFICE MANAGER Oxygen Saturation 98% 12/03/2024 10:06 AM ENVIRONMENTAL FIELD OFFICE MANAGER Inhaled Oxygen Concentration - - Weight 81.6 kg (180 lb) 12/03/2024 10:06 AM ENVIRONMENTAL FIELD OFFICE MANAGER Height 180.3 cm (5' 11 ) 12/03/2024 10:06 AM ENVIRONMENTAL FIELD OFFICE MANAGER Body Mass Index 25.1 12/03/2024 10:06 AM ENVIRONMENTAL FIELD OFFICE MANAGER Procedures * MRI BRAIN WWO CONTRAST(Performed 2023) Performed for Multiple sclerosis (HCC) * MRI CERVICAL SPINE WWO CONT(Performed 2023) Performed for Multiple sclerosis (HCC) * COMPREHENSIVE METABOLIC PANEL(Performed 01/18/2023) Performed for Multiple sclerosis (HCC) * CBC W AUTO DIFFERENTIAL(Performed 01/18/2023) Performed for Multiple sclerosis (HCC) * VITAMIN B12 FOLATE PANEL(Performed 01/18/2023) Performed for Multiple sclerosis (HCC) * TSH REFLEX FREE T4(Performed 01/18/2023) Performed for Multiple sclerosis (HCC) * MRI BRAIN WWO CONTRAST(Performed 03/10/2022) 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) * COMPREHENSIVE METABOLIC PANEL(Performed 01/19/2022) 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) * CBC W AUTO DIFFERENTIAL(Performed 01/19/2022) 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) * EKG(Performed 03/19/2021) * MRI BRAIN WWO CONTRAST(Performed 03/19/2021) 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 Anatomical Region Laterality Modality Head Magnetic Resonan ce Christel Hull VICE PRESIDENT INVESTOR RELATIONS-WELFARE INTERVIEWER MR ORDERABLES * TSH REFLEX FREE T4 (01/18/2023 10:56 AM CDT) TSH 1.010 0.450 - 4.500 uIU/mL [facility] ACCOUNT BILL Comment:FASTING Blood BLOOD SPECIMEN / Unknown 01/18/2023 10:56 AM CDT 01/18/2023 Narrative Resulting Agency Comment Lab Testing performed at: [facility] [id number] Christel Hull VICE PRESIDENT INVESTOR RELATIONS-WELFARE INTERVIEWER LAB - CHEMISTRY ORDERABLES [facility] ACCOUNT BILL [address] [place] [address] * CBC WITH DIFFERENTIAL (01/18/2023 10:56 AM CDT) Only the most recent of2 resultswithin the time period is included. WBC 5.4 3.4 - 10.8 x10E3/uL [facility] ACCOUNT BILL RBC 5.69 4.14 - 5.80 x10E6/uL [facility] ACCOUNT BILL Hemoglobin 15.4 13.0 - 17.7 g/dL [facility] ACCOUNT BILL Hematocrit 45.9 37.5 - 51.0 % [facility] ACCOUNT BILL MCV 81 79 - 97 fL [facility] ACCOUNT BILL MCH 27.1 26.6 - 33.0 pg [facility] ACCOUNT BILL MCHC 33.6 31.5 - 35.7 g/dL [facility] ACCOUNT BILL RDW 14.1 11.6 - 15.4 % [facility] ACCOUNT BILL Platelet Count 256 150 - 450 x10E3/uL [facility] ACCOUNT BILL Granulocytes % 71 Not Estab. % [facility] ACCOUNT BILL Lymphocytes % 12 Not Estab. % [facility] ACCOUNT BILL Monocytes % 15 Not Estab. % [facility] ACCOUNT BILL Eosinophils % 1 Not Estab. % [facility] ACCOUNT BILL Basophils % 0 Not Estab. % [facility] ACCOUNT BILL Immature Cells NOT AVAILABLE [facility] ACCOUNT BILL Comment:Result cannot be obt ained for this observation. Granulocytes Absolute 3.8 1.4 - 7.0 x10E3/uL [facility] ACCOUNT BILL Lymphocytes Absolute 0.7 0.7 - 3.1 x10E3/uL [facility] ACCOUNT BILL Monocytes Absolute 0.8 0.1 - 0.9 x10E3/uL [facility] ACCOUNT BILL Eosinophils Absolute 0.1 0.0 - 0.4 x10E3/uL [facility] ACCOUNT BILL Basophils Absolute 0.0 0.0 - 0.2 x10E3/uL [facility] ACCOUNT BILL Immature Granulocytes 1 Not Estab. % [facility] ACCOUNT BILL Immature Granulocytes Absolute 0.0 0.0 - 0.1 x10E3/uL [facility] ACCOUNT BILL nRBC NOT AVAILABLE [facility] ACCOUNT BILL Comment:Result cannot be obt ained for this observation. Comment Hematology NOT AVAILABLE [facility] ACCOUNT BILL Comment: FASTING Result cannot be obtained for this observation. Blood BLOOD SPECIMEN / Unknown 01/18/2023 10:56 AM CDT 01/18/2023 Narrative Resulting Agency Comment Lab Testing performed at: [facility] [address] [id number] Christel Douglas Kurtis VICE PRESIDENT INVESTOR RELATIONS-WELFARE INTERVIEWER LAB - HEMATOLOGY ORDERABLES [facility] ACCOUNT BILL [address] [place] [address] * (ABNORMAL) COMPREHENSIVE METABOLIC PANEL (01/18/2023 10:56 AM CDT) Only the most recent of2 resultswithin the time period is included. Glucose 108(H) 70 - 99 mg/dL [facility] [...] Agency Comment Lab Testing performed at: [facility] [address] [id number] Christel Misael Hull VICE PRESIDENT INVESTOR RELATIONS-WELFARE INTERVIEWER LAB - CHEMISTRY ORDERABLES Performing Organization Address City/[facility]/ZIP Co de Phone Number [facility] ACCOUNT BILL [address] [place] [address] * VITAMIN B12 FOLATE PANEL (01/18/2023 10:56 AM CDT) Vitamin B12 559 232 - 1,245 pg/mL [facility] ACCOUNT BILL Folate >20.0 >3.0 ng/mL [facility] ACCOUNT BILL Comment: A serum folate concentration of less than 3.1 ng/mL is considered to represent clinical deficiency. FASTING Blood BLOOD SPECIMEN / Unknown 01/18/2023 10:56 AM CDT 01/18/2023 Narrative Resulting Agency Comment Lab Testing performed at: [facility] [address] [id number] Christel Hull VICE PRESIDENT INVESTOR RELATIONS-WELFARE INTERVIEWER LAB - CHEMISTRY ORDERABLES Performing Organization Address City/[facility]/ZIP Co de Phone Number [facility] ACCOUNT BILL [address] [place] [address] * EKG (03/19/2021) Rosalio Floyd MD SCANNING ONLY * MRI CERVICAL SPINE WO CONTRAST (12/27/2019) Anatomical Region Laterality Modality Pelvis Magnetic Resonan ce Rosalio Floyd MD MR ORDERABLES Care Teams News Correspondent Relationship Specialty Start Date End Date Juan Whitfield MD [address] [place] [address] PCP - General 12/07/22
--- OUTSIDE RECORDS SUMMARY | 2024-12-12 09:22 | XMS_ITS | Clinical Summary ---
Author Organization [facility] Address [address] [place] [address] Care Team Providers Care Supervisor Painting Name Role Phone Juan Whitfield MD Primary Care Provider Source Comments [facility],non-owned Affiliates and Associated Physician Practices is amultiple site organization consisting of ambulatory clinics and hospital sitesin [place], [place], [place] and [place]. This disclosure is being madepursuant to the Care Everywhere program and may not contain all information available regarding this patient. Last updated 18.[facility] Allergies Active Allergy Reactions Criticality Noted Date [...] (one) tablet by mouth once daily Active [place]-3 Fatty Acids (OMEGA 3 PO) Active ergocalciferol [...] 60 capsule 4 09/14/2023 12/03/2024 Discontinued (Reorder) Encounters Date Type Department Care Team Description 12/03/2024 10:20 AM DO ALL OPERATOR Office Visit [address] [address] Rosalio Floyd MD Multiple sclerosis (HCC) (Primary Dx); Cervical radiculopathy; Numbness and tingling of right arm; Hypovitaminosis D from Last 3 Months Family History Medical History Relation Name Comments Hyperlipidemia Brother 1 full Hypertension Brother 1 full Seizures Brother 1 full Cancer - Other Brother 2 full Diabetes - Type 1 Brother 2 full Cancer - Other Brother 3 mom side mokuth Alcohol abuse Father Cataract Father Other Father cancer - colon CVA Mother Diabetes - Type 1 Sister 1 mom side Hypertension Sister 1 mom side CAD (Coronary Artery Disease) Sister 2 mom side Diabetes - Type 2 Sister 2 mom side CAD (Coronary Artery Disease) Sister 3 mom side Diabetes - Type 2 Sister 3 mom side Lupus Sister 4 mom side Other Sister 5 full car accident Relation Name Status Comments Brother 1 full Alive Brother 2 full Alive Brother 3 mom side Father Mother Sister 1 mom side Alive Sister 2 mom side Alive Sister 3 mom side Alive Sister 4 mom side Alive Sister 5 full Sister 6 Alive Social History Tobacco Use Types Packs/Day Years [...] AM CDT Pulse 73 12/03/2024 10:06 AM DO ALL OPERATOR Temperature 37 C (98.6 F) 03/22/2023 9:51 AM CDT Respiratory Rate 16 12/03/2024 10:06 AM DO ALL OPERATOR Oxygen Saturation 98% 12/03/2024 10:06 AM DO ALL OPERATOR Inhaled Oxygen Concentration - - Weight 81.6 kg (180 lb) 12/03/2024 10:06 AM DO ALL OPERATOR Height 180.3 cm (5' 11 ) 12/03/2024 10:06 AM DO ALL OPERATOR Body Mass Index 25.1 12/03/2024 10:06 AM DO ALL OPERATOR Plan of Treatment Upcoming Encounters Date Type Department Care Team (Late st Contact Info) Description 03/05/2025 10:00 AM CDT Office Visit [facility] [address] [place] [address] [place] [address] [address] Health Maintenance Due Date Last Done Comments COLOGUARD (AGES 45-75) - COL ON CA SCREENING 1955 COLON MONITORING 1955 COLONOSCOPY - COLON CA SCREENING 1955 CT COLONOGRAPHY - COLON CA SCREENING 1955 Colorectal Cancer Screening 1955 FIT - COLON CA SCREENING 1955 FLEX SIG - COLON CA SCREENING 1955 MEDICARE AWV 12 MONTHS 1955 HEPATITIS C SCREENING 02/12/1975 DTAP/TDAP/TD VACCINES (1 - Tdap) 02/17/1976 PNEUMOCOCCAL VACCINE 50+ (1 of 2 - PCV) 02/17/1976 LUNG CANCER SCREENING 2007 ZOSTER VACCINE (1 of 2) 2007 AAA SCREENING 2022 COVID-19 VACCINE (2023-2 5 season) 2024 INFLUENZA VACCINE (#1) 2024 DEPRESSION SCREENING 10/01/2024 SCREENING FOR DIABETES 01/18/2026 3, 01/19/2022 Respiratory Syncytial Virus (RSV) Vaccine Pt: or over 60 yrs (1 - 1-dose 75+ series) 02/17/2032 HEPATITIS B VACCINE Aged Out No longe r eligible based on patient's age to complete this topic HIB VACCINE Aged Out No longer eligi ble based on patient's age to complete this topic HPV VACCINE Aged Out No longer eligi ble based on patient's age to complete this topic MENINGOCOCCAL (Group B) VACCINE SHARED DECISION-MAKING Aged Out No longer eligible based on patient's age to complete this topic MENINGOCOCCAL GROUPS A/C/Y/W VACCINE Aged Out No longer eligible b ased on patient's age to complete this topic Procedures Procedure Name Priority Date/Time Associated Diagnosis [...] Agency Comment Lab Testing performed at: [facility] [place] [facility] [id number] [facility] [place] [facility] [id number] Christel Hull TIPPLE BOSS-ORTHOTIC AIDE LAB - CHEMISTRY ORDERABLES [facility] ACCOUNT BILL [address] [place] [address] from Last 3 Months or Most Recently Relevant to Health Maintenance Care Teams Supervisor Painting Relationship Specialty Start Date End Date Juan Whitfield MD [address] [place] [address] PCP - General 12/07/22
--- OUTSIDE RECORDS SUMMARY | 2024-12-12 09:22 | XMS_ITS ---
Author Organization [facility] Address [address] [place] [address] Care Team Providers Care Drug Enforcement Administration Agent Name Role Phone Misael Whitfield Primary Care Provider Dr. Ermias Doty Unavailable [phone] Rosalio Floyd Unavailable Unavailable REASON FOR VISIT Needs call back from office Encounters Encounter Location Date Provider Diagnosis [facility] [address] [place] [address] 03/31/2024 Ermias Mcdaniels Plan Of Treatment No Information Progress Notes * CARMENZA CheloracioDOB:1955 (69 yo M)Acc No.[id number]:03/31/2024 Patient: Gregor FERREIRA :1955 A ge:69 Y S ex:Male Address:[address] [place] [address] [address], [place] [address] * true * Date: Generated for Michelle rodas/Sandy/eTransmitting on: 0 12/12/2024 09:21 AM CDT
--- OUTSIDE RECORDS SUMMARY | 2024-12-12 09:22 | XMS_ITS | Clinical Summary ---
Author Organization [facility] Address [address] [place] [address] Care Team Providers Care Prefitter Doors Name Role Phone Juan Whitfield MD Primary Care Provider Allergies Active Allergy Reactions Criticality Noted Date Comments Gabapentin Other (see comment) 12/29/2021 Muscle Spasms Medications Ozanimod HCl (ZEPOSIA) 0.92 MG Cap Take 1 tablet by mouth daily. Active umeclidinium-atul anterol 62.5-25 MCG/INH inhaler Inhale 1 puff into the lungs daily. Active rosuvastatin 10 MG tablet Take 10 mg by mouth daily. Active lisinopril 40 MG tablet Take 40 mg by mouth daily. Active carBAMazepine 200 MG tablet Take 200 mg by mouth daily. Active amLODIPine 5 MG tablet Take 5 mg by mouth daily. 11/20/2021 Active clonazePAM 0.5 MG tablet Take 0.5 mg by mouth daily. 08/04/2021 Active HYDROcodone-acet aminophen 5-325 MG tablet Take 1 tablet by mouth every 6 (six) hours as needed. 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 Immunizations Name Administration Dates Next Due Shingrix 08/02/2021 Tdap (Generic) 01/20/2019 Family History Medical History Relation Comments Heart Disease Brother 1 Diabetes Brother 2 Cancer Father Heart Disease Father No Known Problems Maternal Grandfather No Known Problems Maternal Grandmother Heart Mother No Known Problems Paternal Grandfather No Known Problems Paternal Grandmother Diabetes Sister 1 Heart Sister 1 Diabetes Sister 2 Heart Sister 2 Diabetes Sister 3 Relation Status Comments Brother 1 Alive Brother 2 Alive Father Maternal Grandfather Maternal Grandmother Mother Paternal Grandfather Paternal Grandmother Sister 1 Alive Sister 2 Alive Sister 3 Alive Social History Tobacco Use Types Packs/Day Years Used Date Smoking Tobacco: Former Cigarettes Q uit: 2020 Smokeless Tobacco: Never Tobacco Cessation:Counseling Given: Not Answered Alcohol Use Standard Drinks/Week Comments Not Currently 0 (1 standard drink = 0.6 oz pur e alcohol) PHQ-2 Answer Date Recorded Patient Health Questionnaire-2 Score 0 09/28/2022 Sex and Gender Information Value Date Recorded Sex Assigned at Not on file Legal Sex Male 8:10 PM CDT Gender Identity Not on file Sexual Orientation Not on file Last Filed Vital Signs Vital Sign Reading Time Taken Comments Blood Pressure 122/70 09/28/2022 8:21 AM MATERIALS PLANNING ANALYST Pulse 63 09/28/2022 8:21 AM MATERIALS PLANNING ANALYST Temperature 37.1 C (98.7 F) 09/28/2022 8:21 AM MATERIALS PLANNING ANALYST Respiratory Rate 18 09/28/2022 8:21 AM MATERIALS PLANNING ANALYST Oxygen Saturation 97% 09/28/2022 8:21 AM MATERIALS PLANNING ANALYST Inhaled Oxygen Concentration - - Weight 83.6 kg (184 lb 3.2 oz) 09/28/2022 8:21 A M MATERIALS PLANNING ANALYST Height 180.3 cm (5' 11 ) 09/28/2022 8:21 AM MATERIALS PLANNING ANALYST Body Mass Index 25.69 09/28/2022 8:21 AM MATERIALS PLANNING ANALYST Plan of Treatment Health Maintenance Due Date Last Done Comments Colorectal Cancer Screening Colonoscopy (10 Years) 1955 Hepatitis C 1975 Zoster Vaccines (2 of 2) 09/27/2021 08/02/2021 Annual Medicare Wellness Visit 2022 Pneumococcal Vaccine: 65+ Years (1 of 1 - PCV) 2022 COVID-19 Vaccine ( - 2023-2 5 season) 2024 08/02/2021, 12/25/2020, 12/02/2020 Influenza Adult (#1) 2024 DTaP, Tdap and Td Vaccines ( 2 - Td or Tdap) 01/20/2029 01/20/2019 RSV Immunization or 60+ Years (1 - 1-dose 75+ series) 02/17/2032 Meningococcal B Vaccine Aged Out No l onger eligible based on patient's age to complete this topic Meningococcal Vaccine Aged Out No juju garo eligible based on patient's age to complete this topic RSV Immunizations Under 20 Months Aged Out No longer eligible b ased on patient's age to complete this topic Insurance MEDICARE [facility] Care Teams Prefitter Doors Relationship Specialty Start Date End Date Juan Whitfield MD [address] [place] [address] PCP - General FAMILY PRACTICE 08/11/22
--- OUTSIDE RECORDS SUMMARY | 2024-12-12 09:22 | XMS_ITS ---
Author Organization [facility] Address [address] [place] [address] Care Team Providers Care Briquette Operator Name Role Phone Misael Whitfield Primary Care Provider UnavailDr. Ermias Rowe Unavailable [phone] Rosalio Floyd Unavailable Unavailable Allergies Allergen (clinical drug ingredient) Drug/Non Drug Allergy documented on EMR Reaction Allergy Type Onset Date Status gabapentin Gabapentin Unknown Drug Allergy Activ e Reason For Referral Reason Referral for evaluat ion and care Diagnosis 1 Multiple sclerosis ( G35) Referral Organization [facility] Referring Provider First Name Ermias Referring Provider Last Name Enedelia Referring Provider Speciality Neurology Referral Priority Routine REASON FOR VISIT Multiple Sclerosis Follow-up Medications Medication SIG (Take, Route, Frequency, Duration) [...] Problem Status W/U Status Risk Notes Problem Chronic migraine without aura, non-intractab le (581958230857 100) Chronic migraine without aura, not intractable, without status migrainosus (G43.709) Active confirmed Problem Migraine with aura (9643923) Migraine with aura, not intractable, without status migrainosus (G43.109) Active confirmed Problem Chronic migraine without aura, non-refractor y (disorder) (808682691873 100) Migraine without aura, not intractable, without status migrainosus (G43.009) Active confirmed Encounters Encounter Location Date Provider Diagnosis [facility] [address] [place] [address] 03/20/2024 Ermias Mcdaniels Multiple sclerosis G35 Assessments Encounter Date Diagnosis (ICD Code) Assessment Notes Treatment Notes Treatment Clinical Notes Section Notes 03/20/2024 Multiple sclerosis (ICD-10 - G35) Referral to [facility]. I recommended evaluation and care by a dedicated MS specialist as I feel that his case is atypical and have question about whether he has a progressive form of MS. Continue Zeposia for now until evaluated. Recommended Vit D supplementation Plan Of Treatment Treatment Notes Assessment Notes Multiple sclerosis Referral to [facility]. Referrals Referral Date Details 03/20/2024 03/20/2024, Referral for evaluation and care Next Appt Details Follow Up: prn, Reason: Eval uation and Management Progress Notes * Greogr HERRDOB:1955 (69 yo M)Acc No.[id number]:03/20/2024 Neuro follow-up Patient: Laquita COON Gregor Provider: Misael Mcdaniels MD :1955 A ge:69 Y S ex:Male Date:03/20/2024 Address:[address] [place], [place] [id number] Pcp:Misael Whitfield Subjective: * Chief Complaints: * M ultiple Sclerosis Follow-up * HPI: * Introduction: I had the pleasure of seeing Yeni Herr, who presented for follow-up for multiple sclerosis. * Initial History: INITIAL VISIT HISTORY: This patient is a 69 year old man with a history of HLD, HTN, COPD, BPH, cervical DDD, lumbar DDD, multiple sclerosis. He has been diagnosed as relapsing- remitting MS. He was previously treating with Dr. Floyd, Neurology at [facility]. He is on ozanimod for treatment of MS; he also supplements Vit D. He is here to establish care because he lives over here in [place]. -MS History: He reports that he developed symptoms of MS in his late 50s. He initially developed leg pain, as well as numbness/tingling, in bilateral legs, onset was gradual. His legs got weak and stiff. He developed gait difficulty and started to have falls. He did not really have back pain. He seems to describe a gradual, progressive course. He initially had MRI L-spine showed degenerative disc disease. He was treated by Pain Management with lumbar spinal injections which did not help. He eventually had Brain MRI and C-spine MRI in 2019, was told that he had lesions in his spinal cord and was diagnosed with MS. He was told that he was symptomatic from the lesion(s) in his spinal cord. He did not have a LP. He was subsequently put on treatment, he cannot remember which one, it was a pill, but he couldn't take it due to side effects (?Tecfidera - described diarrhea). He was then changed to Zeposia and has been on this for 2-3 years. He has continued to progress with regards to his leg symptoms despite treatment. He reports 1 MRI scan showed change, but 3 MRI scans have been stable. About a year ago he developed symptoms in his hands. He developed numbness and pain in both hands. He had no significant neck pain. He reports having a NCV/EMG and was told that he had CTS. He underwent left carpal tunnel release with no change in symptoms; they were planning on doing the right side, but ended up not doing it because it did not help the left side. I don't have the most recent imaging reports. He did bring a disc of the most recent Brain MRI and C-spine MRI from 01/2023. To my review, the Brain MRI showed mild relatively non-specific white matter change, there were about 10 or so white matter lesions, all non-enhancing, must subcortical but a few periventricular, also in the becca, not necessarily classic or pathognomonic for MS, could be due to small vessel disease. To my review, the C-spine MRI showed 2 non-enhancing cord lesions, on in the left hemicord at ~C3 and the other in the right/central cord at C3/C4 and one on the right at C6. There was also moderate to severe cervical spondylosis and moderately severe central stenosis C4/C5 and C5/C6 due to degenerative spinal stenosis, but no cord compression. -Other History: He does not use an assistive device to walk, he is more careful now and has not had any recent falls. He reports sometimes a sense of incomplete emptying of his bladder, although has BPH, denies incontinence. He reports mild fatigue. Heat makes his MS symptoms worse. He denies visual symptoms. He denies difficulty with memory or thinking. He denies difficulty with depression or anxiety. He is on pregabalin 75 mg bid for neuropathic pain; does not help. He previously took duloxetine which did not help his pain. He previously took gabapentin but it caused side effects. * Previous Impression & Plan: Notes Previous Diagnoses: 1. Multiple sclerosis - G35 (Primary) 2. Cramp and spasm - R25.2 3. Paresthesia of skin - R20.2 4. Other abnormalities of gait and mobility - R26.89 5. Neuralgia and neuritis, unspecified - M79.2 6. Other cervical disc degeneration, unspecified cervical region - M50.30 7. Spinal stenosis, cervical region - M48.02 His history sounds more suggestive of progressive MS or progressive-relapsing MS rather than a classic relapsing-remitting MS as he relayed it to me. I would like to acquire and review all of his prior medical records and imaging reports to understand his course better. He also has degenerative cervical spinal stenosis, to my review more moderate range rather than severe and I don't think that this is contributing to neurological symptoms Previous Recommendations: 1. For now continue ozanimod. Supplement Vit D (D3) 5000 IU daily. I need all of his prior medical records and imaging reports. 2. Increase pregabalin to 150 mg bid. * Interval History: Notes Interval History: Last visit was on 0 03/06/2024. I reviewed imaging. Brain MRI showed non-specific white matter changes not pathognomonic for demyelination. C-spine MRI showed 3 T2 cord lesions without enhancement, which remained stable over time. T-spine MRI showed no lesions. He again confirmed gradual onset of B LE symptoms in his late 50s. He gradually worsened over time, although feels like he has stabilized in the last couple years. He is on Zeposia. I told him I was truly uncertain whether he had a progressive form of MS or a relapsing form of MS, his history sounded more like the formal to me. I told him I wanted to refer him to a MS specialist at [facility]. * ROS: C ONSTITUTIONAL: Positive for P atient denies fevers, chills, sweats, unintended weight loss, loss of appetite.. E NT: Positive P atient denies ear fullness or pain or sinus pain. R ESPIRATORY: Positive for P atient denies shortness of breath or wheezing. O PHTHALMOLOGY: Positive for R eviewed and except as mentioned above in the HPI is negative. E NDOCRINOLOGY: Positive for P atient denies heat intolerance, cold intolerance, polyuria, elevated blood sugar, chronic fatigue. C ARDIOLOGY: Positive for P atient denies dizziness, palpitations, or chest pain. G ASTROENTEROLOGY: Positive for P atient denies diarrhea, melena, bloody stools, or abdominal pain. U ROLOGY: Positive for P atient denies urinary incontinence or urinary dysfunction. D ERMATOLOGY: Positive for P atient denies rash or hives. ? N EUROLOGY: Positive for R eviewed and except as mentioned above in the HPI is negative. H EMATOLOGY/LYMPH: Positive for P atient denies history of excessive bruising or bleeding diasthesis. M USCULOSKELETAL: Positive for N lamine pain, back pain, right heel pain. ? P SYCHOLOGY: Positive for R eviewed and except as discussed above in the HPI is otherwise negative. * Medical History: * Surgical History: L carpal tunnel release * Hospitalization/Major Diagno stic Procedure: * Family History: No family history of MS or other autoimmune disease. * Social History: Former smoker. * Medications: T akingFinasteride 5 MG Tablet 1 tab(s) orally once a day Lisinopril 40 MG Tablet 1 tab(s) orally once a day Rosuvastatin Calcium 20 MG Tablet 1 tab(s) orally once a day Zeposia 0.92 MG Capsule 1 cap(s) orally once a day Pregabalin 225 MG Capsule 1 cap(s) orally 2 times a day Taking Finasteride 5 MG Tablet 1 tab(s) orally once a day Taking Lisinopril 40 MG Tablet 1 tab(s) orally once a day Taking Rosuvastatin Calcium 20 MG Tablet 1 tab(s) orally once a day Taking Zeposia 0.92 MG Capsule 1 cap(s) orally once a day Taking Pregabalin 225 MG Capsule 1 cap(s) orally 2 times a day * Allergies: G abapentinno[Allergies Verified] Objective: * Vitals: * Examination: G eneral examination: General appearance: Beatriz díaz, well-developed, no distress.? HEENT: N o papilledema or optic pallor. Heart: R RR, S1-S2, no murmurs, no rubs, no gallops. Neurologic exam: A lert and oriented x 4. Fluent speech. Intact recall, fund of knowledge. Appropriate affect. PERRL. EOMI without nystagmus. No visual field cut. Facial sensation intact to light touch and pinprick in bilateral V1/V2/V3. Facial movements normal and symmetric. Hearing intact to finger rub bilaterally. Palate symmetrically upgoing. Tongue midline. Motor 5/5 strength in B UE with normal tone. Motor 5/5 in B LE except for 5-/5 R hip flexion and B dorsiflexion; there is subtle increased tone in the L LE and mildly increased tone in the R LE. Reflexes 2+/2 and symmetric in B UE; 3+ in B LE. R Babinski sign, flexor plantar response on L. Sensory exam with slightly diminished vibratory sensation in both feet; intact pinprick sensation all extremities. C erebellar testing no tremors or ataxia. Gait antalgic, he favors his right leg citing heel pain, slightly unsteady, borderline positive Romberg, cannot tandem. Assessment: * Assessment: 1. M ultiple sclerosis - G35 (Primary) I recommended evaluation and care by a dedicated MS specialist as I feel that his case is atypical and have question about whether he has a progressive form of MS. Continue Zeposia for now until evaluated. Recommended Vit D supplementation. Plan: * Treatment: * Procedure Codes: G 8427 DOC MEDS VERIFIED W/PT OR RE * Follow Up: p rn (Reason: Evaluation and Management) * Billing Information: * Visit Code: 63451 Office Visit, Est Pt., Level 3. Modifiers: 25 * Procedure Codes: G8427 DOC MEDS VERIFIED W/PT OR RE. * Sign off status: Completed true * Provider: Misael Mcdaniels MD Date: 0 03/20/2024 Generated for Michelle clark/Sandy/eTransmitting on: 0 12/12/2024 09:22 AM CDT History and Physical Notes * HPI (History of Present Illness) Category Sub-Category Detail Notes Category Notes *Introduction I had the pleasure of seeing Gregor Herr, who presented for follow-up for multiple sclerosis *Initial History INITIAL VISIT HISTORY: This patient is a 69 year old man with a history of HLD, HTN, COPD, BPH, cervical DDD, lumbar DDD, multiple sclerosis. He has been diagnosed as relapsing-remittin g MS. He was previously treating with Dr. Floyd, Neurology at [facility]. He is on ozanimod for treatment of MS; he also supplements Vit D. He is here to establish care because he lives over here in [place]. -MS History: He reports that he developed symptoms of MS in his late 50s. He initially developed leg pain, as well as numbness/tingling, in bilateral legs, onset was gradual. His legs got weak and stiff. He developed gait difficulty and started to have falls. He did not really have back pain. He seems to describe a gradual, progressive course. He initially had MRI L-spine showed degenerative disc disease. He was treated by Pain Management with lumbar spinal injections which did not help. He eventually had Brain MRI and C-spine MRI in 2019, was told that he had lesions in his spinal cord and was diagnosed with MS. He was told that he was symptomatic from the lesion(s) in his spinal cord. He did not have a LP. He was subsequently put on treatment, he cannot remember which one, it was a pill, but he couldn't take it due to side effects (?Tecfidera - described diarrhea). He was then changed to Zeposia and has been on this for 2-3 years. He has continued to progress with regards to his leg symptoms despite treatment. He reports 1 MRI scan showed change, but 3 MRI scans have been stable. About a year ago he developed symptoms in his hands. He developed numbness and pain in both hands. He had no significant neck pain. He reports having a NCV/EMG and was told that he had CTS. He underwent left carpal tunnel release with no change in symptoms; they were planning on doing the right side, but ended up not doing it because it did not help the left side. I don't have the most recent imaging reports. He did bring a disc of the most recent Brain MRI and C-spine MRI from 01/2023. To my review, the Brain MRI showed mild relatively non-specific white matter change, there were about 10 or so white matter lesions, all non-enhancing, must subcortical but a few periventricular, also in the becca, not necessarily classic or pathognomonic for MS, could be due to small vessel disease. To my review, the C-spine MRI showed 2 non-enhancing cord lesions, on in the left hemicord at ~C3 and the other in the right/central cord at C3/C4 and one on the right at C6. There was also moderate to severe cervical spondylosis and moderately severe central stenosis C4/C5 and C5/C6 due to degenerative spinal stenosis, but no cord compression. -Other History: He does not use an assistive device to walk, he is more careful now and has not had any recent falls. He reports sometimes a sense of incomplete emptying of his bladder, although has BPH, denies incontinence. He reports mild fatigue. Heat makes his MS symptoms worse. He denies visual symptoms. He denies difficulty with memory or thinking. He denies difficulty with depression or anxiety. He is on pregabalin 75 mg bid for neuropathic pain; does not help. He previously took duloxetine which did not help his pain. He previously took gabapentin but it caused side effects *Previous Impression & Plan Notes Previous Diagnoses:1. Multip le sclerosis - G35 (Primary)2. Cramp and spasm - R25.23. Paresthesia of skin - R20.24. Other abnormalities of gait and mobility - R26.895. Neuralgia and neuritis, unspecified - M79.26. Other cervical disc degeneration, unspecified cervical region - M50.307. Spinal stenosis, cervical region - M48.02His history sounds more suggestive of progressive MS or progressive-relapsing MS rather than a classic relapsing-remitting MS as he relayed it to me. I would like to acquire and review all of his prior medical records and imaging reports to understand his course better. He also has degenerative cervical spinal stenosis, to my review more moderate range rather than severe and I don't think that this is contributing to neurological symptomsPrevious Recommendations:1. For now continue ozanimod. Supplement Vit D (D3) 5000 IU daily. I need all of his prior medical records and imaging reports. 2. Increase pregabalin to 150 mg bid *Interval History Notes Interval History: Last visit was on 03/06/2024. I reviewed imaging. Brain MRI showed non-specific white matter changes not pathognomonic for demyelination. C-spine MRI showed 3 T2 cord lesions without enhancement, which remained stable over time. T-spine MRI showed no lesions. He again confirmed gradual onset of B LE symptoms in his late 50s. He gradually worsened over time, although feels like he has stabilized in the last couple years. He is on Zeposia. I told him I was truly uncertain whether he had a progressive form of MS or a relapsing form of MS, his history sounded more like the formal to me. I told him I wanted to refer him to a MS specialist at [facility]. Examination Category Sub-Category Detail Notes Category Not es General examination HEENT: No papilledema or opt ic pallor Heart: RRR, S1-S2, no murmu rs, no rubs, no gallops General appearance: Pleasant, well-devel oped, no distress Neurologic exam: Alert and oriented x 4. Fluent speech. Intact recall, fund of knowledge. Appropriate affect. PERRL. EOMI without nystagmus. No visual field cut. Facial sensation intact to light touch and pinprick in bilateral V1/V2/V3. Facial movements normal and symmetric. Hearing intact to finger rub bilaterally. Palate symmetrically upgoing. Tongue midline. Motor 5/5 strength in B UE with normal tone. Motor 5/5 in B LE except for 5-/5 R hip flexion and B dorsiflexion; there is subtle increased tone in the L LE and mildly increased tone in the R LE. Reflexes 2+/2 and symmetric in B UE; 3+ in B LE. R Babinski sign, flexor plantar response on L. Sensory exam with slightly diminished vibratory sensation in both feet; intact pinprick sensation all extremities. Cerebellar testing no tremors or ataxia. Gait antalgic, he favors his right leg citing heel pain, slightly unsteady, borderline positive Romberg, cannot tandem Consultation Request Notes Referral Date Referring Provider Referred Provider Not es 03/20/2024 Ermias Mcdaniels , Referral for evaluation and care
--- OUTSIDE RECORDS SUMMARY | 2024-12-12 09:23 | XMS_ITS ---
Author Organization [facility] Address [address] [place] [address] Care Team Providers Care Tire And Lube Technician Name Role Phone Misael Whitfield Primary Care Provider Dr. Ermias Doty Unavailable [phone] Rosalio Floyd Unavailable Unavailable [facility]Migration, Provider Unavailable Unavailab le Allergies Allergen (clinical drug ingredient) Drug/Non Drug Allergy documented on EMR Reaction Allergy Type Onset Date Status gabapentin Gabapentin Unknown Drug Allergy Activ e REASON FOR VISIT [facility] To [facility] Conversion Encounter Medications Medication SIG (Take, Route, Frequency, Duration) Notes Start Date End Date Status Pregabalin 150 MG 1 cap(s) orally 2 ti mes a day for 30 days 03/06/2024 Active Lisinopril 40 MG 1 tab(s) orally once a day Active Finasteride 5 MG 1 tab(s) orally once a day Active Zeposia 0.92 MG 1 cap(s) orally once a day Active Rosuvastatin Calcium 20 MG 1 tab(s) oral ly once a day Active Encounters Encounter Location Date Provider Diagnosis [facility] [address] [place] [address] 03/15/2024 Provider ZZ-Migration Neuralgia and neuritis, unspecified M79.2 Assessments Encounter Date Diagnosis (ICD Code) Assessment Notes Treatment Notes Treatment Clinical Notes Section Notes 03/15/2024 Neuralgia and neuritis, unspecified (ICD-10 - M79.2) Plan Of Treatment Medication Medication Name Sig Start Date Stop Date Notes Pregabalin 150 MG 1 cap(s) orally 2 ti mes a day for 30 days 03/06/2024 Progress Notes * Gregor HERRDOB:1955 (69 yo M)Acc No.[id number]:03/15/2024 Patient: Gregor FERREIRA Provider: Beatriz Chávez :1955 A ge:69 Y S ex:Male Date:03/15/2024 Address:[address] [place], [place] [id number] Pcp:Misael Whitfield Subjective: * Chief Complaints: * [facility] * Medical History: * Medications: [...] * Procedure Codes: * Electronic signature of Prov laura SanchesZ-Migration on 12/12/2024 at 09:22 AM CDT Sign off status: Pending * Provider: Beatriz Chávez Date: 0 03/15/2024 Generated for Michelle rodas/Sandy/Taviaitting on: 0 12/12/2024 09:22 AM CDT
[2024-12-12 09:50] LABS: Basophils Percent Auto 0.5 % (0.2-1.2); Eosinophils Absolute Auto 0.1 K/mm3 (0-0.3); Eosinophils Percent Auto 3.1 % (0-4.4); Hematocrit 45.5 % (42.0-52.0); Hemoglobin 14.7 g/dL (14.0-18.0); Immature Granulocyte Absolute 0.01 K/mm3 (0.00-0.031); Immature Granulocyte Percent A 0.2 % (0-0.5); Lymphocytes Absolute Auto 0.56 K/mm3 (0.9-3.2); Lymphocytes Percent Auto 13.3 % (18.3-44.2); Mean Corpuscular HGB Conc 32.3 g/dl (32-36); Mean Corpuscular Hemoglobin 26.7 pg (26-34); Mean Corpuscular Volume 82.6 fl (80-100); Mean Platelet Volume 9.1 fl (7.4-10.4); Monocytes Absolute Auto 0.7 K/mm3 (0.1-0.6); Monocytes Percent Auto 16.8 % (2.6-8.5); Neutrophils Absolute Auto 2.8 K/mm3 (1.3-6.7); Neutrophils Percent Auto 66.1 % (45.5-73.1); Platelet Count Result 236 k/mm3 (150-375); Red Blood Count 5.51 M/mm3 (4.6-6.20); Red Cell Distribution Width 16.1 % (11.5-14.5); White Blood Count 4.2 K/mm3 (4.5-10.0)
[2024-12-12 10:15] LABS: Vitamin D 25 Hydroxy 72.6 ng/mL
[2024-12-12 11:26] LABS: Alanine Aminotransferase 61 U/L (6-50); Albumin Level 4.3 g/dL (3.5-5.1); Alkaline Phosphatase 108 U/L (38-126); Anion Gap 9 mmol/L (4-12); Aspartate Amino Transferase 39 U/L (17-59); Bilirubin,Total 0.9 mg/dL (0.2-1.3); Blood Urea Nitrogen 11 mg/dL (9-20); Calcium 9.5 mg/dL (8.4-10.2); Carbon Dioxide 26 mmol/L (22-30); Chloride 105 mmol/L (98-107); Estimated Glomerular Filt Rate > 60; Glucose 110 mg/dL (65-110); Potassium 4.6 mmol/L (3.4-5.0); Sodium 140 mmol/L (137-145)
[2024-12-15 08:33] LABS: JC Polyoma Virus DNA, QL NOT DETECTED; JC Polyoma Virus Source PLASMA
== END 2024-12-12 08:47 | disposition home or self-care (01) ==
PROVIDERS: PCP Family Medicine
DX: G35 Multiple sclerosis (principal); E55.9 Vitamin D deficiency, unspecified
CPT/HCPCS: 36415; 80053; 82306; 85025; 87798

== ENCOUNTER 2025-02-20 10:20 | Outpatient (CLI) | payer MEDICARE, OTHER, SELFPAY ==
--- OUTSIDE RECORDS SUMMARY | 2025-02-20 10:24 | XMS_ITS | Referral Summary ---
Author Organization [facility] [address] [address] [place] [address] Care Team Providers Care Station Inspector Name Role Phone Juan Whitfield MD Primary [...] - Oxygen Saturation 98% 08/14/2018 10:59 AM LAYOUT INSPECTOR Inhaled Oxygen Concentration - - Weight 86.7 kg (191 lb 3.2 oz) 05/29/2024 9:03 A M CDT Height 180.3 cm (5' 11 ) 05/29/2024 9:03 AM CDT Body Mass Index 26.67 05/29/2024 9:03 AM CDT Plan of Treatment Not on file Insurance CHOICE PRF PPO CT MEDICARE [employer] MEDICARE [employer] Care Teams Station Inspector Relationship Specialty Start Date End Date Juan Whitfield MD [address] [place] [address] PCP - General Family Practice 07/16/24
--- OUTSIDE RECORDS SUMMARY | 2025-02-20 10:24 | XMS_ITS | Clinical Summary ---
Author Organization [facility] Address [address] [place] [address] Care Team Providers Care Test Tube Maker Name Role Phone Juan Whitfield MD Primary Care Provider Source Comments [facility],non-owned Affiliates and Associated Physician Practices is amultiple site organization consisting of ambulatory clinics and hospital sitesin [place], [place], [place] and [place]. This disclosure is being madepursuant to the Care Everywhere program and may not contain all information available regarding this patient. Last updated 18.[facility] Allergies Active Allergy Reactions Criticality Noted Date Comments Gabapentin Other 11/13/2019 cramps Medications * Be aware that medications may not be up to date on this document. Alwaysverify current medications with the patient. rosuvastatin (CRESTOR) 20 MG tablet Take 1 (one) tablet by mouth once daily 03/10/2019 Active lisinopril (PRINIVIL; ZESTRIL) 40 MG tablet Take 1 (one) tablet by mouth once daily 05/23/2021 Active ZEPOSIA 0.92 MG CAPS TAKE 1 CAPSULE (0.92MG) BY MOUTH ONCE DAILY 30 capsule 11 03/06/2022 Active vibegron (Gemtesa) 75 MG tablet Take 1 (one) tablet by mouth once daily Active [place]-3 Fatty Acids (OMEGA 3 PO) Active ergocalciferol (Drisdol) 200 MCG (8000 UNITS)/ML drops Take 1.5 mL by mouth once daily Active VITAMIN A PO Active pregabalin (Lyrica) 75 MG capsuleIndicati ons:Numbness and tingling of right arm Take 2 (two) capsules by mouth 2 times daily 120 capsule 4 12/03/2024 Active Encounters Date Type Department Care Team Description 12/16/2024 Orders Only [address] [address] Rosalio Floyd MD Multiple sclerosis 12/03/2024 10:20 AM JOURNEYMAN MOLDER Office Visit [address] [address] Rosalio Floyd MD Multiple sclerosis (Primary Dx); Cervical radiculopathy; Numbness and tingling [...] at Not on file Legal Sex Male 9:59 AM JOURNEYMAN MOLDER Gender Identity Not on file Sexual Orientation Not on file Last Filed Vital Signs Vital Sign Reading Time Taken Comments Blood Pressure 140/80 03/22/2023 9:51 AM CDT Pulse 73 12/03/2024 10:06 AM JOURNEYMAN MOLDER Temperature 37 C (98.6 F) 03/22/2023 9:51 AM CDT Respiratory Rate 16 12/03/2024 10:06 AM JOURNEYMAN MOLDER Oxygen Saturation 98% 12/03/2024 10:06 AM JOURNEYMAN MOLDER Inhaled Oxygen Concentration - - Weight 81.6 kg (180 lb) 12/03/2024 10:06 AM JOURNEYMAN MOLDER Height 180.3 cm (5' 11 ) 12/03/2024 10:06 AM JOURNEYMAN MOLDER Body Mass Index 25.1 12/03/2024 10:06 AM JOURNEYMAN MOLDER Plan of Treatment Upcoming Encounters Date Type Department Care Team (Late st Contact Info) Description 03/05/2025 10:00 AM CDT Office Visit [facility] [address] [facility] [address] [place] [phone] [place] [address] [address] Health Maintenance Due Date Last Done Comments [...] 2) 2007 AAA SCREENING 2022 COVID-19 VACCINE ( - 2023-2 5 season) 2024 DEPRESSION SCREENING 10/01/2024 INFLUENZA VACCINE (Season Ended) 2025 SCREENING FOR DIABETES 12/13/2027 , 01/18/2023, 01/19/2022 Respiratory Syncytial Virus (RSV) Vaccine Pt: [...] Procedure Name Priority Date/Time Associated Diagnosis Comments LAB Routine 12/12/2024 10:21 AM CDT VITAMIN D 25-HYDROXY Routine 12/12/2024 Hypovitaminosis D COMPREHENSIVE METABOLIC PANEL Routine 12/12/2024 Multiple sclerosis CBC W AUTO DIFFERENTIAL Routine 12/12/2024 Multiple sclerosis from Last 3 Months Results * LAB (12/12/2024 10:21 AM CDT) Rosalio Floyd MD SCANNING ONLY Final Result * VITAMIN D 25-HYDROXY (12/12/2024) Blood BLOOD SPECIMEN / Unknown 12/12/2024 Rosalio Floyd MD LAB - CHEMISTRY ORDERABLES Fin al Result [facility] INSURANCE BILL [address] [place] [address] * CBC WITH DIFFERENTIAL (12/12/2024) Blood BLOOD SPECIMEN / Unknown 12/12/2024 Rosalio Floyd MD LAB - HEMATOLOGY ORDERABLES Fi nal Result [facility] INSURANCE BILL [address] [place] [address] * COMPREHENSIVE METABOLIC PANEL (12/12/2024) Blood BLOOD SPECIMEN / Unknown 12/12/2024 Rosalio Floyd MD LAB - CHEMISTRY ORDERABLES Fin al Result [facility] INSURANCE BILL [address] [place] [address] from Last 3 Months Insurance [facility] Member Subscriber Plan / Payer (Ef fective 2022-Present) Name:Gregor Yuan Yeni Member ID:[id number] Relation to Subscriber:Self Name:Gregor Yuan Yeni Subscriber ID:[id number] Payer ID:Not on file Group ID:Not on file Type:Commercial Address: [address] [facility] [place] [address] [facility] MEDICARE Care Teams Test Tube Maker Relationship Specialty Start Date End Date Juan Whitfield MD [address] [place] [address] PCP - General 12/07/22
--- OUTSIDE RECORDS SUMMARY | 2025-02-20 10:24 | XMS_ITS | Clinical Summary ---
Author Organization [facility] [address] [facility] [address] Address [address] [place] [address] Care Team Providers Care Pharmacy Technology Instructor Name Role Phone Juan Whitfield MD Primary [...] - Oxygen Saturation 98% 08/14/2018 10:59 AM FEED MILL TENDER Inhaled Oxygen Concentration - - Weight 86.7 [...] Visit 65+ 2022 Covid-19 Vaccine ( - season) 2024 08/02/2021, 12/25/2020, 12/02/2020 Influenza Vaccine (Season Ended) 2025 DTaP/Tdap/Td Vaccine (2 - Td or Tdap) 01/20/2029 Zoster Vaccine Completed 11/08/2021, 08/02/2021 Insurance [place] MEDICARE [facility] MEDICARE [facility] [place] [address] Care Teams Pharmacy Technology Instructor Relationship Specialty Start Date End Date Juan Whitfield MD [address] [place] [address] PCP - General Family Practice 07/16/24
[2025-02-20 12:24] LABS: Basophils Percent Auto 0.8 % (0.2-1.2); Eosinophils Absolute Auto 0.1 K/mm3 (0-0.3); Eosinophils Percent Auto 3.9 % (0-4.4); Hematocrit 49.2 % (42.0-52.0); Hemoglobin 15.6 g/dL (14.0-18.0); Immature Granulocyte Absolute 0.02 K/mm3 (0.00-0.031); Immature Granulocyte Percent A 0.6 % (0-0.5); Lymphocytes Absolute Auto 0.58 K/mm3 (0.9-3.2); Lymphocytes Percent Auto 16.3 % (18.3-44.2); Mean Corpuscular HGB Conc 31.7 g/dl (32-36); Mean Corpuscular Hemoglobin 26.4 pg (26-34); Mean Corpuscular Volume 83.4 fl (80-100); Mean Platelet Volume 9.7 fl (7.4-10.4); Monocytes Absolute Auto 0.7 K/mm3 (0.1-0.6); Monocytes Percent Auto 19.9 % (2.6-8.5); Neutrophils Absolute Auto 2.1 K/mm3 (1.3-6.7); Neutrophils Percent Auto 58.5 % (45.5-73.1); Platelet Count Result 235 k/mm3 (150-375); Red Cell Distribution Width 15.4 % (11.5-14.5); White Blood Count 3.6 K/mm3 (4.5-10.0)
[2025-02-20 13:10] LABS: Thyroid Stimulating Hormone Reflex 0.748 uIU/mL (0.465-4.68)
[2025-02-20 13:12] LABS: Alanine Aminotransferase 50 U/L (6-50); Albumin Level 4.3 g/dL (3.5-5.1); Alkaline Phosphatase 101 U/L (38-126); Anion Gap 7 mmol/L (4-12); Aspartate Amino Transferase 36 U/L (17-59); Bilirubin,Total 0.7 mg/dL (0.2-1.3); Blood Urea Nitrogen 12 mg/dL (9-20); Calcium 9.2 mg/dL (8.4-10.2); Carbon Dioxide 28 mmol/L (22-30); Chloride 105 mmol/L (98-107); Cholesterol 145 mg/dL (0-200); Estimated Glomerular Filt Rate > 60; Glucose 92 mg/dL (65-110); HDL Direct 46 mg/dL; Potassium 4.8 mmol/L (3.4-5.0); Sodium 140 mmol/L (137-145); Triglycerides 103 mg/dL (<150)
[2025-02-20 13:15] LABS: LDL Cholesterol Direct 76 mg/dL
[2025-02-20 13:29] LABS: Hemoglobin A1C 5.9 % (<5.7)
== END 2025-02-20 10:21 | disposition home or self-care (01) ==
LOC: ANHGOSHLAB 10:21
PROVIDERS: PCP Family Medicine; Visit Provider Family Medicine
DX: E78.5 Hyperlipidemia, unspecified (principal); I10 Essential (primary) hypertension; R73.03 Prediabetes; E53.8 Deficiency of other specified B group vitamins
CPT/HCPCS: 36415; 80053; 80061; 82607; 83036; 84443; 85025

== ENCOUNTER 2025-03-26 15:01 | Outpatient (CLI) | payer MEDICARE, OTHER, SELFPAY ==
[2025-03-26 18:44] LABS: Alanine Aminotransferase 45 U/L (6-50); Albumin Level 4.1 g/dL (3.5-5.1); Alkaline Phosphatase 86 U/L (38-126); Anion Gap 7 mmol/L (4-12); Aspartate Amino Transferase 43 U/L (17-59); Bilirubin,Total 0.6 mg/dL (0.2-1.3); Blood Urea Nitrogen 12 mg/dL (9-20); Carbon Dioxide 26 mmol/L (22-30); Chloride 106 mmol/L (98-107); Estimated Glomerular Filt Rate > 60; Glucose 103 mg/dL (65-110); Potassium 4.1 mmol/L (3.4-5.0); Sodium 139 mmol/L (137-145); Total Protein 6.8 g/dL (6.3-8.2)
== END 2025-03-26 15:02 | disposition home or self-care (01) ==
LOC: ANHGOSHLAB 15:03
PROVIDERS: PCP Family Medicine; Visit Provider Family Medicine
DX: I10 Essential (primary) hypertension (principal); Z79.899 Other long term (current) drug therapy
CPT/HCPCS: 36415; 80053

== ENCOUNTER 2025-06-03 08:54 | Outpatient (CLI) | payer MEDICARE, OTHER, SELFPAY ==
--- OUTSIDE RECORDS SUMMARY | 2025-06-03 09:23 | XMS_ITS | Clinical Summary ---
Author Organization [facility] Address [address] [place] [address] Care Team Providers Care Harness Mender Name Role Phone Juan Whitfield MD Primary [...] obstruction/lower urinary tract symptom s 12/29/2021 Immunizations Immunization Administration Dates Next Due Shingrix 08/02/2021 Tdap [...] Comments Blood Pressure 122/70 09/28/2022 8:21 AM ECHO VASCULAR TECHNOLOGIST Pulse 63 09/28/2022 8:21 AM ECHO VASCULAR TECHNOLOGIST Temperature 37.1 C (98.7 F) 09/28/2022 8:21 AM ECHO VASCULAR TECHNOLOGIST Respiratory Rate 18 09/28/2022 8:21 AM ECHO VASCULAR TECHNOLOGIST Oxygen Saturation 97% 09/28/2022 8:21 AM ECHO VASCULAR TECHNOLOGIST Inhaled Oxygen Concentration - - Weight 83.6 kg (184 lb 3.2 oz) 09/28/2022 8:21 A M ECHO VASCULAR TECHNOLOGIST Height 180.3 cm (5' 11) 09/28/2022 8:21 AM ECHO VASCULAR TECHNOLOGIST Body Mass Index 25.69 09/28/2022 8:21 AM ECHO VASCULAR TECHNOLOGIST Plan of Treatment Health Maintenance Due Date Last Done Comments Colorectal Cancer Screening Colonoscopy (10 Years) 1957 Hepatitis C 1975 Pneumococcal Vaccine: 50+ Years (1 of 1 - PCV) 2007 Zoster Vaccines (2 of 2) 09/27/2021 08/02/2021 Annual Medicare Wellness Visit 2022 COVID-19 Vaccine (4 - 2024-2 6 season) 2025 08/02/2021, 12/25/2020, 12/02/2020 DTaP, Tdap and Td Vaccines ( 2 [...] patient's age to complete this topic Insurance [facility] Care Teams Harness Mender Relationship Specialty Start Date End Date Juan Whitfield MD [facility] [facility] [address] [place] [address] PCP - General FAMILY PRACTICE 08/11/22
--- OUTSIDE RECORDS SUMMARY | 2025-06-03 09:23 | XMS_ITS | Clinical Summary ---
Author Organization [facility] [address] [facility] [address] Address [address] [place] [address] Care Team Providers Care Disposal Man Name Role Phone Juan Whitfield MD Primary [...] cancer Pneumonia COPD (chronic obstructive pulmonary disease) Emphysema (subcutaneous) (surgical) resulting fr om a [...] - Oxygen Saturation 98% 08/14/2018 10:59 AM PHOTOCOPYING EQUIPMENT MECHANIC Inhaled Oxygen Concentration - - Weight 86.7 kg (191 lb 3.2 oz) 05/29/2024 9:03 A M CDT Height 180.3 cm (5' 11) 05/29/2024 9:03 AM CDT Body Mass Index [...] 2024 08/02/2021, 12/25/2020, 12/02/2020 Influenza Vaccine (#1) 2025 DTaP/Tdap/Td Vaccine (2 - Td or Tdap) 01/20/2029 Zoster Vaccine Completed 11/08/2021, 08/02/2021 Insurance [place] MEDICARE [facility] MEDICARE [facility] [address] Care Teams Disposal Man Relationship Specialty Start Date End Date Juan Whitfield MD [address] [facility] [address] [place] [address] PCP - General Family Practice 07/16/24
--- OUTSIDE RECORDS SUMMARY | 2025-06-03 09:23 | XMS_ITS | Clinical Summary ---
Author Organization [facility] [employer] Address [address] [place] [address] Care Team Providers Care Rn Cvor Name Role Phone Juan Whitfield MD Primary Care Provider Source Comments [facility],non-owned Affiliates and Associated Physician Practices is amultiple site organization consisting of ambulatory clinics and hospital sitesin [place], [place], [place]. This disclosure is being madepursuant to the Care Everywhere program and may not contain all information available regarding this patient. Last updated 18.[facility] Allergies Active Allergy Reactions Criticality Noted [...] (one) tablet by mouth once daily Active [place]-3 Fatty Acids (OMEGA 3 PO) Active ergocalciferol (Drisdol) 200 MCG (8000 UNITS)/ML drops Take 1.5 mL by mouth once daily Active VITAMIN A PO Active vitamin b-12 (Cyancobalamin) 1000 MCG tablet cr Take 1,000 (one thousand) tablets by mouth once daily Active terbinafine (LamISIL) 250 MG tablet Take 1 (one) tablet by mouth once daily 02/20/2025 Active pregabalin (Lyrica) 150 MG capsuleIndicati ons:Bilateral carpal tunnel syndrome,Multip le sclerosis (HCC) Take 1 (one) capsule by mouth 3 times daily 90 capsule 4 03/05/2025 Active Encounters Date Type Department Care Team Description 04/02/2025 9:30 AM CDT Office Visit [facility] [address] [facility] ([place], [place]), [address] [address] Gerry Carnes MD Bilateral carpal tunnel syndrome (Primary Dx); Cubital tunnel syndrome on left 03/05/2025 10:00 AM CDT Office Visit [facility] [address] [facility] [address] [place] [phone] Rosalio Floyd MD Bilateral carpal tunnel syndrome (Primary Dx); Numbness and tingling of right arm; Multiple sclerosis (HCC); Cervical radiculopathy from Last 3 Months Family History Medical [...] Years Used Date Smoking Tobacco: Former Cigarettes 0.8 40 Smokeless Tobacco: Never Tobacco Cessation:Counseling Given: Not [...] on file Legal Sex Male 9:59 AM BELT LOOP MAKER Gender Identity Not on file Sexual Orientation Not on file Last Filed Vital Signs Vital Sign Reading Time Taken Comments Blood Pressure 136/86 03/05/2025 9:42 AM CDT Pulse 87 03/05/2025 9:42 AM CDT Temperature 37 C (98.6 F) 03/22/2023 9:51 AM CDT Respiratory Rate 16 03/05/2025 9:42 AM CDT Oxygen Saturation 99% 03/05/2025 9:42 AM CDT Inhaled Oxygen Concentration - - Weight 83.5 kg (184 lb) 04/02/2025 9:14 AM CDT Height 180.3 cm (5' 11) 04/02/2025 9:14 AM CDT Body Mass Index 25.66 04/02/2025 9:14 AM CDT Plan of Treatment Upcoming Encounters Date Type Department Care Team (Late st Contact Info) Description 09/03/2025 10:00 AM BELT LOOP MAKER Office Visit [facility] [address] [facility] ([place], [place]) [address] [place] [phone] [place] [address] [id number] Health Maintenance Due Date Last Done Comments [...] 02/12/1975 DTAP/TDAP/TD VACCINES (1 - Tdap) 02/17/1976 LUNG CANCER SCREENING 2007 PNEUMOCOCCAL VACCINE 50+ (1 of 1 - PCV) 2007 ZOSTER VACCINE (1 of 2) 2007 AAA SCREENING 2022 COVID-19 VACCINE (1 - 2023-2 5 season) 2024 DEPRESSION SCREENING 10/01/2024 INFLUENZA VACCINE (#1) 2025 SCREENING FOR DIABETES 12/13/2027 , 01/18/2023, [...] Associated Diagnosis Comments COMPREHENSIVE METABOLIC PANEL Routine 12/12/2024 Multiple sclerosis from Last 3 Months or Most Recently Relevant to Health Maintenance Results * COMPREHENSIVE METABOLIC PANEL (12/12/2024) Blood BLOOD SPECIMEN / Unknown 12/12/2024 Rosalio Floyd MD LAB - CHEMISTRY ORDERABLES Fin al Result [facility] INSURANCE BILL [address] [place] [address] from Last 3 Months or Most Recently Relevant to Health Maintenance Insurance [facility] [place] [id number] MEDICARE Care Teams Rn Cvor Relationship Specialty Start Date End Date Juan Whitfield MD [address] [place] [id number] PCP - General 12/07/22
[2025-06-03 13:34] LABS: Hematocrit 48.1 % (42.0-52.0); Hemoglobin 15.3 g/dL (14.0-18.0); Immature Granulocyte Percent A 0.4 % (0-0.5); Lymphocytes Absolute Auto 0.72 K/mm3 (0.9-3.2); Mean Corpuscular HGB Conc 31.8 g/dl (32-36); Mean Corpuscular Hemoglobin 26.6 pg (26-34); Mean Corpuscular Volume 83.5 fl (80-100); Nucleated Red Blood Cells Absolute Auto 0.000 K/mm3 (0.0-0.012); Nucleated Red Blood Cells Perc 0.0 % (0.0-0.2); Platelet Count Result 218 k/mm3 (150-375); Red Blood Count 5.76 M/mm3 (4.6-6.20); White Blood Count 5.1 K/mm3 (4.5-10.0)
[2025-06-03 13:40] LABS: Alanine Aminotransferase 57 U/L (6-50); Albumin Level 4.2 g/dL (3.5-5.1); Alkaline Phosphatase 94 U/L (38-126); Anion Gap 7 mmol/L (4-12); Aspartate Amino Transferase 52 U/L (17-59); Bilirubin,Total 0.7 mg/dL (0.2-1.3); Blood Urea Nitrogen 17 mg/dL (9-20); Calcium 9.4 mg/dL (8.4-10.2); Carbon Dioxide 27 mmol/L (22-30); Chloride 104 mmol/L (98-107); Estimated Glomerular Filt Rate > 60; Glucose 108 mg/dL (65-110); Potassium 4.1 mmol/L (3.4-5.0); Sodium 138 mmol/L (137-145); Total Protein 7.1 g/dL (6.3-8.2)
[2025-06-03 17:05] LABS: Hemoglobin A1C 6.2 % (<5.7)
== END 2025-06-03 08:55 | disposition home or self-care (01) ==
LOC: ANHGOSHLAB 08:55
PROVIDERS: PCP Family Medicine; Visit Provider Family Medicine
DX: R73.03 Prediabetes (principal); I10 Essential (primary) hypertension; E55.9 Vitamin D deficiency, unspecified
CPT/HCPCS: 36415; 80053; 82306; 83036; 85025

== ENCOUNTER 2025-07-16 07:35 | Outpatient (CLI) | payer MEDICARE, OTHER, SELFPAY ==
--- OUTSIDE RECORDS SUMMARY | 2024-03-03 12:30 | XMS_ITS ---
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 Ermias Mcdaniels MD on 07/16/2025 at 07:39 AM CDT Sign off status: Pending * Provider: Misael Mcdaniels MD Date: 0 03/03/2024 Generated for Michelle rodas/Sandy/eTransmitting on: 07:39 AM CDT
--- OUTSIDE RECORDS SUMMARY | 2024-03-15 16:30 | XMS_ITS ---
Author Organization [facility] [employer] [place] ([address]) Address [address] [place] [address] Care Team Providers [facility] [place] [facility] Name Role Phone Misael Whitfield Primary Care Provider UnavailDr. Ermias Rowe Unavailable [phone] Rosalio Floyd Unavailable Unavailable [facility], Provider Unavailable Unavailab le Allergies Allergen (clinical drug ingredient) Drug/Non Drug Allergy documented on EMR Reaction Allergy Type Onset Date Status gabapentin Gabapentin Unknown Drug Allergy Activ e REASON FOR VISIT [facility] To [facility] Conversion Encounter Medications Medication SIG (Take, Route, Frequency, Duration) Notes Start Date End Date Status Pregabalin 150 MG 1 cap(s) orally 2 ti mes a day; Duration: 30 days 03/06/2024 Active Lisinopril 40 MG 1 tab(s) orally once a day Active Finasteride 5 MG 1 tab(s) orally once a day Active Zeposia 0.92 MG 1 cap(s) orally once a day Active Rosuvastatin Calcium 20 MG 1 tab(s) oral ly once a day Active Encounters Encounter Location Date Provider Diagnosis [facility] - [address] [address] 03/15/2024 Provider [facility]Migration Neuralgia and neuritis, unspecified M79.2 Assessments Encounter Date Diagnosis (ICD Code) Assessment Notes Treatment Notes Treatment Clinical Notes Section Notes 03/15/2024 Neuralgia and neuritis, unspecified (ICD-10 - M79.2) Plan Of Treatment Medication Medication Name Sig Start Date Stop Date Notes Pregabalin 150 MG 1 cap(s) orally 2 ti mes a day; Duration: 30 days 03/06/2024 Progress Notes * Gregor HERRDOB:1955 (70 yo M)Acc No.[id number]:03/15/2024 Patient: Gregor FERREIRA Provider: Beatriz Chávez :1955 A ge:69 Y S ex:Male Date:03/15/2024 Address:[address] [place] [address] [id number] Pcp:Misael Whitfield Subjective: * Chief Complaints: * [facility] . [facility] * Medical History: * Medications: T aking Finasteride 5 MG Tablet 1 tab(s) orally once a day , Taking Lisinopril 40 MG Tablet 1 tab(s) orally once a day , Taking Rosuvastatin Calcium 20 MG Tablet 1 tab(s) orally once a day , Taking Zeposia 0.92 MG Capsule 1 cap(s) orally once a day * Allergies: G abapentin. Objective: * Vitals: Assessment: * Assessment: 1. N euralgia and neuritis, unspecified - M79.2 Plan: * Treatment: * Billing Information: * Visit Code: * Procedure Codes: * Electronic signature of Rae MCLAIN-Migration on 07/16/2025 at 07:39 AM CDT Sign off status: Pending * Provider: Beatriz Chávez Date: 0 03/15/2024 Generated for Michelle rodas/Sandy/Edward on: 1 07:39 AM CDT
--- NOTE | ~2025-07-16 | PE_ITS ---
EXAMINATION: PET_PETPSMAST_PT DATE: 07/16/2025 09:56 INDICATION: Prostate cancer. TECHNIQUE: 5.275 mCi of Ga-68 gozetotide was administered intravenously. Low dose computed tomography (CT) images were acquired from the base of the brain to the proximal thighs for attenuation correction and anatomic localization. Automated exposure control was employed. Dose-length product (DLP) was 1105 mGy- cm. Positron emission tomography (PET) images were acquired in the same distribution. COMPARISON: Chest CT 09/01/2024 FINDINGS: Head/neck: There are no pathologically enlarged lymph nodes. Chest: There is mild scarring at the lung apices. There is mild emphysema. No pleural effusion. The heart size is normal. No pericardial effusion. Abdomen/pelvis/proximal thighs: The liver, gallbladder, spleen, pancreas, adrenal glands, and right kidney are normal. There is a 2 mm stone in left kidney. There are changes of prostatectomy. There is diverticulosis of the colon without evidence of diverticulitis. There are no dilated loops of bowel. The appendix is normal. There are no pathologically enlarged lymph nodes. There is no free intraperitoneal fluid. There is no osseous malignancy. IMPRESSION: 1. Prostatectomy. No evidence of malignancy. Reviewed, dictated and finalized at location E.
--- OUTSIDE RECORDS SUMMARY | 2025-07-16 07:39 | XMS_ITS | Clinical Summary ---
Author Organization [facility] Address [address] [place] [address] Care Team Providers Care Parts Washer Name Role Phone Juan Whitfield MD Primary [...] Comments Blood Pressure 122/70 09/28/2022 8:21 AM WASTEWATER PLANT CIVIL ENGINEER Pulse 63 09/28/2022 8:21 AM WASTEWATER PLANT CIVIL ENGINEER Temperature 37.1 C (98.7 F) 09/28/2022 8:21 AM WASTEWATER PLANT CIVIL ENGINEER Respiratory Rate 18 09/28/2022 8:21 AM WASTEWATER PLANT CIVIL ENGINEER Oxygen Saturation 97% 09/28/2022 8:21 AM WASTEWATER PLANT CIVIL ENGINEER Inhaled Oxygen Concentration - - Weight 83.6 kg (184 lb 3.2 oz) 09/28/2022 8:21 A M WASTEWATER PLANT CIVIL ENGINEER Height 180.3 cm (5' 11) 09/28/2022 8:21 AM WASTEWATER PLANT CIVIL ENGINEER Body Mass Index 25.69 09/28/2022 8:21 AM WASTEWATER PLANT CIVIL ENGINEER Plan of Treatment Health Maintenance Due Date Last Done Comments Colorectal Cancer Screening Colonoscopy (10 Years) 1957 Hepatitis C 1975 Pneumococcal Vaccine: 50+ Years (1 of 1 - PCV) 2007 Zoster Vaccines (2 of 2) 09/27/2021 08/02/2021 Annual Medicare Wellness Visit 2022 COVID-19 Vaccine (4 - 2024-2 6 season) 2025 08/02/2021, 12/25/2020, 12/02/2020 Influenza Adult (#1) 2025 DTaP, Tdap and Td Vaccines ( 2 [...] age to complete this topic Insurance MEDICARE [facility] Care Teams Parts Washer Relationship Specialty Start Date End Date Juan Whitfield MD [address] [facility] [address] [place] [address] PCP - General FAMILY PRACTICE 08/11/22
--- OUTSIDE RECORDS SUMMARY | 2025-07-16 07:39 | XMS_ITS | Patient Health Record ---
Author Organization [facility] [place] ([address]) Address [address] [place] [address] Care Team Providers Care Office Technology Instructor Name Role Phone Misael Whitfield Primary Care Provider Dr. Ermias Doty Unavailable [phone] Rosalio Floyd Unavailable Unavailable Allergies Allergen (clinical drug ingredient) Drug/Non Drug Allergy documented on EMR Reaction Allergy Type Onset Date Status gabapentin Gabapentin Unknown Drug Allergy Activ e Reason For Referral No Information Medications Medication SIG (Take, Route, Frequency, Duration) Notes Start Date End Date Status Finasteride 5 MG 1 tab(s) orally once a day Active Pregabalin 225 MG 1 cap(s) orally 2 ti mes a day; Duration: 30 days 03/06/2024 Active Zeposia 0.92 MG 1 cap(s) orally once a day Active Rosuvastatin Calcium 20 MG 1 tab(s) oral ly once a day Active Lisinopril 40 MG 1 tab(s) orally once a day Active Problems Problem Type SNOMED Code ICD Code Onset Dates Problem Status W/U Status Risk Notes Problem Multiple sclerosis (59028890) Multiple sclerosis (G35) Active confirmed Problem Chronic migraine without aura, non-refractory (disorder) (024420626640419) Migraine without aura, not intractable, without status migrainosus (G43.009) Active confirmed Problem Migraine with aura (8698281) Migraine with aura, not intractable, without status migrainosus (G43.109) Active confirmed Problem Chronic migraine without aura, non-intractable (079628198908284) Chronic migraine without aura, not intractable, without status migrainosus (G43.709) Active confirmed Problem Degeneration of cervical intervertebral disc (99199211) Other cervical disc degeneration, unspecified cervical region (M50.30) Active confirmed Problem Neuralgia (07875190) Neuralgia and neuritis, unspecified (M79.2) Active confirmed Problem Paresthesia (finding) (49874943) Paresthesia of skin (R20.2) Active confirmed Problem Spasm (07168262) Cramp and spasm (R25.2) Active confirmed Problem Abnormal gait (16453995) Other abnormalities of gait and mobility (R26.89) Active confirmed Plan Of Treatment No Information Insurance Providers Payer Name Payer Address Payer Phone Subscriber Number Group Number Insured Name Patient Relationship to Insured Coverage Start Date Coverage End Date [employer] (Medicare) Attention Claims [address] [place] [address] [id number] Gregor Yuan Self - patient is the insured [address] [place] [address] [id number] Gregor Yuan Self - patient is the insured 2 Medical (General) History Medical History History ICD Code HTN HLD MS Cervical DDD CTS BPH COPD Surgical History Surgery Date(Month/Year) L carpal tunnel release
--- OUTSIDE RECORDS SUMMARY | 2025-07-16 07:39 | XMS_ITS | Clinical Summary ---
Author Organization [facility] Address [address] [place] [address] Care Team Providers Care Predator Control Trapper Name Role Phone Juan Whitfield MD Primary Care Provider Source Comments [facility],non-owned Affiliates and Associated Physician Practices is amultiple site organization consisting of ambulatory clinics and hospital sitesin [place], [place], [place] and [place]. This disclosure is being madepursuant to the Care Everywhere program and may not contain all information available regarding this patient. Last updated 18.[facility] Allergies Active Allergy Reactions Criticality Noted Date [...] (one) tablet by mouth once daily Active [place]-3 Fatty Acids (OMEGA 3 PO) Active ergocalciferol [...] capsuleIndicati ons:Bilateral carpal tunnel syndrome,Multip le sclerosis Take 1 (one) capsule by mouth 3 times daily 90 capsule 4 03/05/2025 Active Family History Medical History Relation Name Comments [...] on file Legal Sex Male 9:59 AM TRAINS SERVICE CONDUCTOR Gender Identity Not on file Sexual Orientation [...] st Contact Info) Description 09/03/2025 10:00 AM TRAINS SERVICE CONDUCTOR Office Visit [facility] [address] [facility] [address] [place] [phone] [place] [address] [facility] [address] [place] [address] Health Maintenance Due Date Last Done Comments [...] (1 of 2) 2007 AAA SCREENING 2022 DEPRESSION SCREENING 10/01/2024 COVID-19 VACCINE (1 - 2023-2 5 season) 2025 INFLUENZA VACCINE (#1) 2025 SCREENING FOR DIABETES 12/13/2027 5, 01/18/2023, 01/19/2022 Respiratory Syncytial Virus (RSV) Vaccine [...] Rosalio Floyd MD LAB - CHEMISTRY ORDERABLES [facility] al Result [facility] INSURANCE BILL [address] [place] [address] from Last 3 Months or Most Recently Relevant to Health Maintenance Insurance [facility] MEDICARE Care Teams Predator Control Trapper Relationship Specialty Start Date End Date Juan Whitfield MD [address] [place] [address] PCP - General 12/07/22
--- OUTSIDE RECORDS SUMMARY | 2025-07-16 07:39 | XMS_ITS | Clinical Summary ---
Author Organization [facility] [address] [facility] [address] Address [address] [place] [address] Care Team Providers Care Metal Melter Name Role Phone Juan Whitfield MD Primary [...] Hypertension Heart murmur Hyperlipidemia Sinusitis Diabetes mellitus Dizziness Diverticulitis Skin cancer Pneumonia COPD (chronic [...] - Oxygen Saturation 98% 08/14/2018 10:59 AM SPRING LAYER Inhaled Oxygen Concentration - - Weight 86.7 [...] Well Visit 65+ 2022 Covid-19 Vaccine ( season) 2025 08/02/2021, 12/25/2020, 12/02/2020 Influenza Vaccine (#1) 2025 DTaP/Tdap/Td Vaccine (2 - Td or Tdap) 01/20/2029 Zoster Vaccine Completed 11/08/2021, 08/02/2021 Insurance [place] MEDICARE [facility] MEDICARE [facility] Care Teams Metal Melter Relationship Specialty Start Date End Date Juan Whitfield MD [address] [facility] [address] [place] [address] PCP - General Family Practice 07/16/24
== END 2025-07-16 07:36 | disposition home or self-care (01) ==
PROVIDERS: PCP Family Medicine; Visit Provider Urology
DX: C61 Malignant neoplasm of prostate (principal)
CPT/HCPCS: 78815; A9596